=== PATIENT | male | born 1950 | race Caucasian/White ===

== ENCOUNTER → 2025-01-01 12:50 | Outpatient (REF) | payer MEDICARE, SELFPAY ==
--- NOTE | 2025-01-01 12:59 | CA_ITS ---
Transthoracic Echocardiogram Patient (Last, First, Middle): Papo Moreira, Gender: Male Date of : 1950 Age: 74 Procedure Date: 01/01/2025 Procedure Type: Transthoracic Echocardiogram Location: OP Height: 175.26 cm Weight: 74.39 kg BSA: 1.90 m2 Heart Rate: bpm BP: 117 / 60 mmHg Net Developer Contract: 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 The calculated ejection fraction is 57% by biplane method. - Moderate focal hypertrophy of the basal septum. - No obvious valvular pathology seen on this study. Findings Left Ventricle Normal left ventricular cavity size. The left ventricular systolic function is normal. The calculated ejection fraction is 57% by biplane method. There is no evidence of regional wall motion abnormalities. Diastolic function is normal for age. Moderate focal hypertrophy of the basal septum. Right Ventricle Normal right ventricular cavity size and systolic function. Atria Both atria are normal in size. Aortic Valve There is a normal trileaflet aortic valve. There is no aortic valve stenosis. There is no aortic valve regurgitation. Mitral Valve The mitral valve appears normal. There is trace mitral valve regurgitation. There is no mitral valve stenosis. Pulmonic Valve The pulmonic valve is likely normal. Tricuspid Valve Normal tricuspid valve structure. There is trace tricuspid valve regurgitation. There is no evidence of pulmonary hypertension. Great Vessels The asc aorta is normal in size. Venous The inferior vena cava is normal in size and collapses greater than 50% with inspiration. Pericardium/Pleural There is no evidence of pericardial effusion. Prior Study Comparison No prior study available for comparison. Recommendations, Care & Conclusions No obvious valvular pathology seen on this study. Measurements 2D Linear Measurements IVSd: 1.26 0.6-0.9/0.6-1.0 cm LVIDd: 3.74 3.9-5.3/4.2-5.9 cm LVIDd Index: 1.97 2.4-3.2/2.2-3.1 cm/m2 LVIDs: 2.35 2.0-3.6 cm LVPWd: 1.22 0.7-1.1 cm Ao Root: 3.20 2.1-3.5 cm LA Diam: 3.80 2.7-3.8/3.0-4.0 cm LAIDs Index: 2.00 1.5-2.3 cm/m2 LV Mass: 195.86 67-162/88-224 g LV Mass Index: 103.08 43-95/49-115 g/m2 LVOT Diam: 2.30 3.0+(-)1.3 cm 2D Systolic Function EF 4C: 62.40 >55% EF 2C: 46.30 >55% EF BiP: 56.50 >55% Mitral Valve MV Pk E: 0.67 MV PK A: 0.86 MV Decel Time: 335.00 E/A: 0.80 E'Lateral: 12.10 E'Medial: 7.18 E/E' Med: 9.30 E/E' Lat: 5.50 PHT: 98.00 MVA PHT: 2.24 Decel Mathews: 1.99 Aortic Valve AoV Pk Christopher: 1.25 AoV Pk Grad: 6.00 LVOT LVOT Pk Christopher: 0.78 LVOT Mn Christopher: 0.47 LVOT VTI: 0.19 LVOT Pk Grad: 2.00 LVOT Mn Grad: 1.00 LVOT Diam: 2.30 LVOT Area: 4.15 Diastolic Function MV Pk E: 0.67 MV Pk A: 0.86 E/A: 0.80 E'Medial: 7.18 E/E' Med: 9.30 E' Laterial: 12.10 E/E' Lat: 5.50 Right Ventricle TAPSE (mm): 19.00 TVS' Christopher: 15.00 Tricuspid Valve TR Pk Christopher: 2.24 TR Pk Grad: 20.00 RA Press: 3.00 RVSP: 23.00 Great Vessels Aorta Ao Root-2D: 3.20 2.0-3.7 cm Ao Asc: 3.30 2.1-3.4 cm Pulmonary Valve PV Pk Christopher: 0.92 Peak PV Grad: 3.00 Updated in Other Vendor System with Status of Final Jay Jay Barajas MD electronically signed on 01/02/2025 8:40:07 AM with status of Final
--- OUTSIDE RECORDS SUMMARY | 2025-01-01 15:15 | XMS_ITS ---
[facility] Address [address] [place] [address] Care Team Providers Care Remarketing Manager Name Role Phone Oneil Agrawal MD Primary Care Provider Unavaila Darien Lema Unavailable [phone] Allergies Allergen (clinical drug ingredient) Drug/Non Drug Allergy documented on EMR Reaction Allergy Type Onset Date Status Adhesive rash Allergy Active codeine Codeine Stmach cramps Drug Allergy Act dennis REASON FOR VISIT At Risk Footcare Medications Medication SIG (Take, Route, Frequency, Duration) Notes Start Date End Date Status Multivitamin Active Ativan Not-Taking Ammonium Lactate 12 % 1 application Externally Twice a day for 30 days Active Cymbalta Not-Taking Simvastatin 20 MG Orally Once a day Active Lipitor Active Fluticasone Propionate HFA Active HumaLOG Active Astepro Active busPIRone HCl Active Gabapentin 100 MG 1 capsule Orally Onc e a day for 30 day(s) Active Aspirin 81 MG 2 tablets Once a day Active Social History Tobacco Use: Social History Observation Description Date Details (start date - stop date) Never Smoker NA - NA Tobacco Use/Smoking Question Answer Notes Are you a: nonsmoker Additional Findings: Tobacco Non-User Current no n-smoker Alcohol Screen Question Answer Notes Did you have a drink containing alcohol in the p ast year? No Points 0 Interpretation Negative Tobacco use other than smoking: Question Answer Notes Are you an other tobacco user? No Vital Signs Height 5 ft 9 in in 05/19/2024 Weight 154 lbs 05/19/2024 BMI 22.74 kg/m2 05/19/2024 Blood pressure systolic 120 mm Hg 05/19/20 24 Blood pressure diastolic 67 mm Hg 024 Procedures Procedure Date Ordered Date Performed Result Body Sit e 94044-KSGPZXO NAIL, 6 OR MORE 05/19/2024 N/A 20504-LJOL SKIN LESIONS, 2 TO 4 05/19/2024 N/A Encounters Encounter Location Date Provider Diagnosis [facility] [address] [address] 05/19/2024 Darien Guerrier Type 1 diabetes mellitus with diabetic polyneuropathy E10.42 and Tinea unguium B35.1 Assessments Encounter Date Diagnosis (ICD Code) Assessment Notes Treatment Notes Treatment Clinical Notes Section Notes 05/19/2024 Type 1 diabetes mellitus with diabetic polyneuropathy (ICD-10 - E10.42) 05/19/2024 Tinea unguium (ICD-10 - B35.1) Plan Of Treatment Pending Test Test Name Order Date [id number] NAIL, 6 OR MORE 05/19/2024 54049-OSDE SKIN LESIONS, 2 TO 4 05/19/20 24 Next Appt Details Follow Up: prn, Reason: Provider Name:Darien Guerrier , 02/16/2025 12:45:00 PM, [address] [place] [address], [phone], Procedure Notes * Category Sub-Category Detail Notes Debride Nail 6-10 Nail debridement Performance o f this nail treatment by a nonprofessional would put this patients foot and overall health at risk. Therefore, nail debridement was performed extensively to reduce/remove overall nail length, girth, thickness, subungual debris, and necrotic tissue, by manual and/or electrical means through the use of a nail nipper and/or dremel-type card grinder, to a more viable healthy nail plate or bed tissue 6-10. Silver nitrate used for any petechial bleeding as necessary. Definitive antifungal treatment options have been reviewed and discussed with the patient. The patient chooses, no pharmaceutical tx - 76396 Keratoma Treatment Parring or Cutting o f Benign Hyperkeratotic Lesion(s) (-56) 2-4 Lesions - The Benign hyperkeratotic lesions, as described above were pared, and/or cut utilizing a sterile 15 blade, tissue nippers, and/or dremel - 60635 Progress Notes * Papo LANDEROS EDOB:[birth year] (74 yo M)Acc No.[id number]:05/19/2024 Progress Note Patient:Papo Valdez Provider:?Darien Guerrier DPM :1950???Age:74 Y???Sex:Male Tai e:05/19/2024 Address:[address] [place] [address] [place] [id number] Pcp:Oneil Agrawal MD Subjective: * Chief Complaints: * ???At Risk Footcare * HPI: ???At Risk footcare:?Pt States Last PCP Visit:?Date?11/19/2023 * ROS:?General/Constitutional:?Nausea?denies.?Vomiting?denies.?Hunger Thirst?denies.?Loss appetite?denies.?Chills?denies.?Fatigue?denies.?Fever?denies.?Night Sweats?denies.?Unexplained weight loss?denies.?Ophthalmologic:?Blurred vision?denies.?Red eye?denies.?HEENTM:?Dentures?denies.?Dizziness?denies.?Glasses/contacts?admits.?Retinopathy?de nies.?Blurred/double vision?denies.?TMJ?denies.?Discharge/drainage?denies.?Implants?denies.?Hard of hearing denies.?Difficulty chewing/swallowing/speaking?denies.?Nose bleeds?denies.?Sore mouth?denies.?Swollen glands?denies.?Respiratory:?On Oxygen?denies.?Pneumonia/pleurisy?denies.?Bronchitis?denies.?Emphysema?denies.?C oughing?denies.?Cough blood?denies.?Shortness of breath?denies.?Wheezing?denies.?Cardiovascular:?Pacemaker?denies.?MVP?denies.?WPW?denies.?CHF?denies.?Heart attack?denies.?Septal defect?denies.?Rapid beat?denies.?Chest pain ?denies.?Atrial Fib.?denies.?Murmur/Palpitations?denies.?Gastrointestinal:?Hemorrhoids?denies.?Stomach/Abdominal pain?denies.?Dark blood stool?denies.?Irritable bowel ?denies.?Constipation?denies.?Diarrhea?denies.?Vomiting?denies.?Hematology:?Swelling?denies.?Bruising?denies.?Bleeding problem?denies.?Genitourinary:?Blood urine?denies.?Frequent/Painfu/urination/bladder control?denies.?Kidney stones?denies.?Infection (UTI)?denies.?Nephropathy?denies.?Musculoskeletal:?Hammertoes?admits.?Bunions?denies.?Scoliosis/kyphosis?denies.?Muscle cramps / walking?denies.?Generalized aches and pains?denies.?Weakness?denies.?Integ.:?[place]?denies.?Scars?denies.?Corns/calluses?admits.?Ingrown nails?denies.?Painful nails?denies.?Rashes?denies.?Neurologic:?Difficulty sleeping?denies.?Bipolar?denies.?Brain disorder?denies.?Balance trouble?denies.?Confusion?denies.?Fainting/blackouts?denies.?Headache?denies.?Tr emors?denies.? * Medical History:? * Surgical History:?cataract s urgery 1986, 1988right hand surgery 2013 * Hospitalization/Major Diagno stic Procedure:?Denies Past Hospitalization * Family History:?Mother: humberto dobson, diagnosed with Other malignant neoplasm of unspecified site.?Father: , diagnosed with Other specified conditions influencing health status.?Maternal Grand Father: diabetes.?Siblings: unknown, diagnosed with Other specified conditions influencing health status.?Spouse: alive.?Maternal Grand Mother: diagnosed with Unspecified heart disease.? * Social History:?Tobacco Use:?Tobacco Use/Smoking?Are you a:?nonsmoker ?Additional Findings: Tobacco Non-User?Current non-smoker ?Tobacco use other than smoking?Are you an other tobacco user??No ???Drugs/Alcohol:?Drugs?Have you used drugs other than those for medical reasons in the past 12 months??No ?Alcohol Screen?Did you have a drink containing alcohol in the past year??No ?Points?0 ?Interpretation?Negative ???Miscellaneous:?Caffeine: yes, frequency:, 1-cups per day. ?Children: yes. ?no Exercise. ?Marital status: . ?Occupation: Retired-[employer] , [employer]. * Medications:?TakingGabapenti n 100 MG Capsule 1 capsule Orally Once a dayAspirin 81 MG 2 tablets Once a dayAstepro busPIRone HCl Fluticasone Propionate HFA HumaLOG Lipitor Multivitamin Simvastatin 20 MG Tablet Orally Once a dayAmmonium Lactate 12 % Cream 1 application Externally Twice a dayTaking Gabapentin 100 MG Capsule 1 capsule Orally Once a dayTaking Aspirin 81 MG 2 tablets Once a dayTaking Astepro Taking busPIRone HCl Taking Fluticasone Propionate HFA Taking HumaLOG Taking Lipitor Taking Multivitamin Taking Simvastatin 20 MG Tablet Orally Once a dayTaking Ammonium Lactate 12 % Cream 1 application Externally Twice a dayNot-Taking/PRNCymbalta Ativan Medication List reviewed and reconciled with the patientNot-Taking/PRN Cymbalta Not-Taking/PRN Ativan Medication List reviewed and reconciled with the patient * Allergies:?Codeine: Clarice Carroll: cosmo[Allergies Verified] Objective: * Vitals:?Ht: 5 ft 9 in, Wt:15 4, BMI:22.74, Shoe size:9.5, BP:120/67 mm Hg, BS:105. * Examination: ???Neurological: ?SENSORY:?Neurological exam demonstrates, reduced light touch sensation, reduced sharp/dull pin prick discrimination , B/L, 5.07 monofilament test performed at plantar aspects of 5 varied sites per foot shows sensation, reduced, B/L, Pt still relates abnormal sensations in both feet, pt relates, paresthesia, B/L.?Nails: ?NAILS are:?Elongated, overgrown, dystrophic, lytic, greater than 3mm thick, discolored and friable with crumbly malodorous subungual debris, T1, T2, T3, T4, T6, T7, T8, T9.?Dermatologic: ?SKIN FINDINGS:?Skin exam reveals Keratotic lesion(s) located at, Heel, B/L.? Assessment: * Assessment: 1.?Tinea unguium - B35.1?2.? Type 1 diabetes mellitus with diabetic polyneuropathy - E10.42 (Primary)? Plan: * Treatment: * Procedures:?Debride Nail 6-10:?Nail debridement?Performance of this nail treatment by a nonprofessional would put this patients foot and overall health at risk. Therefore, nail debridement was performed extensively to reduce/remove overall nail length, girth, thickness, subungual debris, and necrotic tissue, by manual and/or electrical means through the use of a nail nipper and/or dremel-type card grinder, to a more viable healthy nail plate or bed tissue 6-10. Silver nitrate used for any petechial bleeding as necessary. Definitive antifungal treatment options have been reviewed and discussed with the patient. The patient chooses, no pharmaceutical tx - 49343.?Keratoma Treatment:?Parring or Cutting of Benign Hyperkeratotic Lesion(s)?(-56) 2-4 Lesions - The Benign hyperkeratotic lesions, as described above were pared, and/or cut utilizing a sterile 15 blade, tissue nippers, and/or dremel - 72254.? * Procedure Codes:?61331 DEBRI DE NAIL, 6 OR MORE, Modifiers: XS 81720 TRIM SKIN LESIONS, 2 TO 4, Modifiers: XS * Follow Up:?prn * Images: * Sign off status: Completed true * Provider:?Darien Guerrier DPM Date:?2023 Generated for Dawood peters/[facility]arcel[facility] on:?01/01/2025 03:15 PM EDT History and Physical Notes * HPI (History of Present Illness) Category Sub-Category Detail Notes Category Not es At Risk footcare Pt States Last PCP Visit: Date: 4 Examination Category Sub-Category Detail Notes Category Not es Neurological SENSORY: Neurological exa m demonstrates, reduced light touch sensation, reduced sharp/dull pin prick discrimination , B/L, 5.07 monofilament test performed at plantar aspects of 5 varied sites per foot shows sensation, reduced, B/L, Pt still relates abnormal sensations in both feet, pt relates, paresthesia, B/L Dermatologic SKIN FINDINGS: Skin exam reveal s Keratotic lesion(s) located at, Heel, B/L Nails NAILS are: Elongated, overg rown, dystrophic, lytic, greater than 3mm thick, discolored and friable with crumbly malodorous subungual debris, T1, T2, T3, T4, T6, T7, T8, T9
--- OUTSIDE RECORDS SUMMARY | 2025-01-01 15:16 | XMS_ITS ---
Author Organization [facility] [place] Address [address] [place] [address] Care Team Providers Care Title Clerk Automobile Name Role Phone Oneil Agrawal MD Primary Care Provider Unavaila Darien Lema Unavailable [phone] Allergies Allergen (clinical drug ingredient) Drug/Non Drug Allergy documented on EMR Reaction Allergy Type Onset Date Status Adhesive rash Allergy Active codeine Codeine Stmach cramps Drug Allergy Act dennis REASON FOR VISIT At Risk Footcare, Toe Irritation Medications Medication SIG (Take, Route, Frequency, Duration) Notes Start Date End Date Status Multivitamin Active Simvastatin 20 MG Orally Once a day Active Lipitor Active HumaLOG Active Ammonium Lactate 12 % 1 application Exte rnally Twice a day for 30 days Active Gabapentin 100 MG 1 capsule Orally Onc e a day for 30 day(s) 3 caps Active Aspirin 81 MG 2 tablets Once a day Active Ativan Not-Taking busPIRone HCl Active Colace Active Cymbalta Not-Taking Extra Depth Orthopedic Shoes (1 Pair) with Customized Heat Molded Multidensity Innersoles (3 Pair) as directed Dx: IDDM/Polyneuropathy (E10.42), Hammertoe Foot Deformity (M20.41,M20.42), Preulcerative Skin Lesion(s) (L85.1) 08/18/2024 Active Astepro Not-Taking Fluticasone Propionate HFA Not-Taking Social History Tobacco Use: Social History Observation Description Date Details (start date - stop date) Never Smoker NA - NA Tobacco Use/Smoking Question Answer Notes Are you a: nonsmoker Additional Findings: Tobacco Non-User Current no n-smoker Tobacco use other than smoking: Question Answer Notes Are you an other tobacco user? No Vital Signs Height 5ft9in in 11/24/2024 Weight 165 lbs 11/24/2024 BMI 24.36 kg/m2 11/24/2024 Blood pressure systolic 120 mm Hg 11/25/19 Blood pressure diastolic 62 mm Hg 025 Procedures Procedure Date Ordered Date Performed Result Body Sit e 85690-UZQYTDJ NAIL, 6 OR MORE 11/24/2024 N/A 66975-YNVH SKIN LESIONS, 2 TO 4 11/24/2024 N/A Encounters Encounter Location Date Provider Diagnosis [facility] [address] [address] 11/24/2024 Darien Guerrier Type 1 diabetes mellitus with diabetic polyneuropathy E10.42 ; Tinea unguium B35.1 ; Other hammer toe(s) (acquired), right foot M20.41 and Other hammer toe(s) (acquired), left foot M20.42 Assessments Encounter Date Diagnosis (ICD Code) Assessment Notes Treatment Notes Treatment Clinical Notes Section Notes 11/24/2024 Type 1 diabetes mellitus with diabetic polyneuropathy (ICD-10 - E10.42) 11/24/2024 Tinea unguium (ICD-10 - B35.1) 11/24/2024 Other hammer toe(s) (acquired), right foot (ICD-10 - M20.41) Response to treatment,Impro vement 11/24/2024 Other hammer toe(s) (acquired), left foot (ICD-10 - M20.42) Response to treatment,Impro vement Plan Of Treatment Pending Test Test Name Order Date [id number] NAIL, 6 OR MORE 11/24/2024 48122-UGSO SKIN LESIONS, 2 TO 4 11/25/19 25 Next Appt Details Follow Up: prn, Reason: Provider Name:Darien Guerrier , 02/16/2025 12:45:00 PM, [address] [place] [address], [phone], Procedure Notes * Category Sub-Category Detail Notes Debride Nail 6-10 Nail debridement Due to the cl inical pathology outlined in the exam findings, performance of this nail treatment is medically necessary as its management by an unskilled/untrained nonprofessional would put this patients foot and overall health at risk. Therefore, debridement to affected nail(s), as described in exam ( T1, T2, T3, T4, T6, T7, T8, T9 ), was performed exclusively by the physician of record to reduce/remove overall nail length, girth, thickness, subungual debris, and necrotic tissue, by manual and/or electrical means through the use of a nail nipper and/or dremel-type grinder set up operator internal, to a more viable healthy nail plate or bed tissue 6-10 nails in total. Silver nitrate was used for any petechial bleeding as necessary. Definitive antifungal treatment options, both pharmaceutical and surgical, have been reviewed and discussed with the patient. The patient solely prefers the use of intermittent/as needed professional debridement services for their nail condition and understands the need for additional periodic treatments to maintain effectiveness in symptomatic relief - 52591 Keratoma Treatment Parring or Cutting o f Benign Hyperkeratotic Lesion(s) (-56) 2-4 Lesions - Due to the at risk nature of the patients medical condition as documented in the exam findings, performance of this keratoderma treatment is medically necessary as its management by an unskilled/untrained nonprofessional would put this patients foot and overall health at risk. Therefore, the benign hyperkeratotic lesions, ( 2) in total, locations as stated and described in the exam ( Plantar, Heel, B/L ), were pared, and/or cut utilizing a sterile 15 blade, tissue nippers, and/or power dremel instrumentation by the physician of record - 79783 Progress Notes * Papo LANDEROS EDOB:[birth year] (74 yo M)Acc No.[id number]:11/24/2024 Progress Note Patient:?Papo LANDEROS Provider:?Darien Guerrier DPM :1950???Age:74 Y???Sex:Male Tai e:11/24/2024 Address:[address] [place], [place] [id number] Pcp:Oneil Agrawal MD Subjective: * Chief Complaints: * ???At Risk FootcareToe Irrit ation * HPI: ???At Risk footcare:?Pt States Last PCP Visit:?Date?06/20/2024 ???Toe pain:?Treatments:?Rx shoes .? * ROS:?General/Constitutional:?Nausea?denies.?Vomiting?denies.?Hunger Thirst?denies.?Loss appetite?denies.?Chills?denies.?Fatigue?denies.?Fever?denies.?Night Sweats?denies.?Unexplained weight loss?denies.?Ophthalmologic:?Blurred vision?denies.?Red eye?denies.?HEENTM:?Dentures?denies.?Dizziness?denies.?Glasses/contacts?admits.?Retinopathy?den ies.?Blurred/double vision?denies.?TMJ?denies.?Discharge/drainage?denies.?Implants?denies.?Hard of hearing denies.?Difficulty chewing/swallowing/speaking?denies.?Nose bleeds?denies.?Sore mouth?denies.?Swollen glands?denies.?Respiratory:?On O xygen?denies.?Pneumonia/pleurisy?denies.?Bronchitis?denies.?Emphysema?denies.?Co ughing?denies.?Cough blood?denies.?Shortness of breath?denies.?Wheezing?denies.?Cardiovascular:?Pacemaker?denies.?MVP?denies.?WPW?denies.?CHF?denies.?Heart attack?denies.?Septal defect?denies.?Rapid beat?denies.?Chest pain ?denies.?Atrial Fib.?denies.?Murmur/Palpitations?denies.?Gastrointestinal:?Hemorrhoids?denies.?Stomach/Abdominal pain?denies.?Dark blood stool?denies.?Irritable bowel ?denies.?Constipation?denies.?Diarrhea?denies.?Vomiting?denies.?Hematology:?Swelling?denies.?Bruising?denies.?Bleeding problem?denies.?Genitourinary:?Blood urine?denies.?Frequent/Painfu/urination/bladder control?denies.?Kidney stones?denies.?Infection (UTI)?denies.?Nephropathy?denies.?Musculoskeletal:?Hammertoes?admits.?Bunions?denies.?Scoliosis/kyphosis?denies.?Muscle cramps / walking?denies.?Generalized aches and pains?denies.?Weakness?denies.?Integ.:?[place]?denies.?Scars?denies.?Corns/calluses?admits.?Ingrown nails?admits.?Painful nails?denies.?Rashes?denies.?Neurologic:?Difficulty sleeping?denies.?Bipolar?denies.?Brain disorder?denies.?Balance t rouble?denies.?Confusion?denies.?Fainting/blackouts?denies.?Headache?denies.?Jameson mors?denies.? * Medical History:? * Surgical History:?cataract s urgery 1986, 1987right hand surgery 2013 * Hospitalization/Major Diagno stic [...] than smoking?Are you an other tobacco user??No ???Miscellaneous:?Caffeine: yes, frequency:, 1-cups per day. ?Children: yes. ?Exercise: no. ?Marital status: . 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 * Medications:?TakingColace Ga bapentin 100 MG Capsule 1 capsule Orally Once a day , Notes to Pharmacist: 3 capsAspirin 81 MG 2 tablets Once a day busPIRone HCl HumaLOG Lipitor Multivitamin Simvastatin 20 MG Tablet Orally Once a day Ammonium Lactate 12 % Cream 1 application Externally Twice a day Extra Depth Orthopedic Shoes (1 Pair) with Customized Heat Molded Multidensity Innersoles (3 Pair) as directed Dx: IDDM/Polyneuropathy (E10.42), Hammertoe Foot Deformity (M20.41,M20.42), Preulcerative Skin Lesion(s) (L85.1) Taking Colace Taking Gabapentin 100 MG Capsule 1 capsule Orally Once a day , Notes to Pharmacist: 3 capsTaking Aspirin 81 MG 2 tablets Once a day Taking busPIRone HCl Taking HumaLOG Taking Lipitor Taking Multivitamin Taking Simvastatin 20 MG Tablet Orally Once a day Taking Ammonium Lactate 12 % Cream 1 application Externally Twice a day Taking Extra Depth Orthopedic Shoes (1 Pair) with Customized Heat Molded Multidensity Innersoles (3 Pair) as directed Dx: IDDM/Polyneuropathy (E10.42), Hammertoe Foot Deformity (M20.41,M20.42), Preulcerative Skin Lesion(s) (L85.1) Not-Taking/PRNAstepro Fluticasone Propionate HFA Cymbalta Ativan Medication List reviewed and reconciled with the patientNot-Taking/PRN Astepro Not-Taking/PRN Fluticasone Propionate HFA Not-Taking/PRN Cymbalta Not-Taking/PRN Ativan Medication List reviewed and reconciled with the patient * Allergies:?Codeine: Clarice Carroll: cosmo[Allergies Verified] Objective: * Vitals:?Ht: 5ft9in, Wt:165, BMI:24.36, Shoe size: 9.5, BP:120/62mm Hg, BS: 114, Ht-cm: 175.26 cm, Wt-k.84 kg. * ???Past Orders: ???Lab:HEMOGLOBIN A1C (GLYCO HEMOGLOBIN) (Order Date - 08/28/2024) (Collection Date & Time - 08/28/2024 08:56 AM) ? Value Reference Range ?HEMOGLOBIN A1C % (HH) 6.8 * Examination: ???Ophthalmology Referral: ?DIABETES EYE EXAM?Procedure Performed:?Yes ?Date of Exam Performed?09/20/2024 ?Diabetic Retinopathy Screening:?Yes ?Retinal Screening Performed:?Yes ?Findings of Diabetic Eye Exam:?no retinopathy?Neurological: ?SENSORY:?Neurological exam demonstrates, reduced light touch sensation, [...] T1, T2, T3, T4, T6, T7, T8, T9, Absent nail plate, TA, T5.?Dermatologic: ?SKIN FINDINGS:?Skin exam reveals Keratotic lesion(s) located at, Plantar, Heel, B/L.?Orthopedic: ?DIGITAL DEFORMITIES:?Digital contracture, PIPJ, 2-5 B/L, incompl-reducible to push-up test, no over, nor underlapping, there is no longer, evidence of shoe producing skin irritation.?FOOTWEAR:?good condition, exhibit proper fit and accommodation for pedal deformities. OT were inspected and noted to be worn, but in good condition giving proper support at the present time.?General Examination: ?GENERAL APPEARANCE:?Reveals a pleasant, alert, well nourished, well- developed, well hydrated individual, who demonstrates proper attention to hygiene/body habitus, and is in no acute distress, Pt serves as own historian for office visit today.?ORIENTED:?person, place, and time.?FOOT EXAM:?Lower Extremity Neurological Exam performed:?Yes ?Visual exam of foot performed:?Yes ?Date?11/24/2024 ?Footwear Evaluation?Footwear Evaluation performed:?Yes??? Assessment: * Assessment: 1.?Type 1 diabetes mellitus with diabetic polyneuropathy - E10.42 (Primary)???2.?Tinea unguium - B35.1???3.?Other hammer toe(s) (acquired), right foot - M20.41???Specify :Chronic problem, Stable (1=3,2=4)???Notes :Response to treatment,Improvement???4.?Other hammer toe(s) (acquired), left foot - M20.42???Specify :Chronic problem, Stable (1=3,2=4)???Notes :Response to treatment,Improvement??? Plan: * Treatment: * Procedures:?Debride Nail 6-10:?Nail debridement?Due to the clinical pathology outlined in the exam findings, performance of this nail treatment is medically necessary as its management by an unskilled/untrained nonprofessional would put this patients foot and overall health at risk. Therefore, debridement to affected nail(s), as described in exam (?T1,?T2,?T3,?T4,?T6,?T7,?T8,?T9?), was performed exclusively by the physician of record to reduce/remove overall nail length, girth, thickness, subungual debris, and necrotic tissue, by manual and/or electrical means through the use of a nail nipper and/or dremel-type grinder set up operator internal, to a more viable healthy nail plate or bed tissue 6- 10 nails in total. Silver nitrate was used for any petechial bleeding as necessary. Definitive antifungal treatment options, both pharmaceutical and surgical, have been reviewed and discussed with the patient. The patient solely prefers the use of intermittent/as needed professional debridement services for their nail condition and understands the need for additional periodic treatments to maintain effectiveness in symptomatic relief - 96679.?Keratoma Treatment:?Parring or Cutting of Benign Hyperkeratotic Lesion(s)?(-56) 2-4 Lesions - Due to the at risk nature of the patients medical condition as documented in the exam findings, performance of this keratoderma treatment is medically necessary as its management by an unskilled/untrained nonprofessional would put this patients foot and overall health at risk. Therefore, the benign hyperkeratotic lesions, ( 2) in total, locations as stated and described in the exam (?Plantar,?Heel,?B/L?), were pared, and/or cut utilizing a sterile 15 blade, tissue nippers, and/or power dremel instrumentation by the physician of record - 04225.? * Procedure Codes:?21510 DEBRI DE NAIL, 6 OR MORE, Modifiers: XS 90542 TRIM SKIN LESIONS, 2 TO 4, Modifiers: XS * Preventive Medicine:? ??Counseling:?Discussion:?-13: Office or other outpatient visit for the evaluation and management of an established patient, which required a medically appropriate history and/or examination and LOW level of DECISION MAKING for: 1 STABLE ACUTE UNCOMPLICATED PROBLEM, 2 OR MORE MINOR PROBLEMS, OR 1 STABLE CHRONIC PROBLEM, THAT POSE(S) A LOW RISK FOR MORBIDITY/MORTALITY. The visit on the day of the encounter encompassed interpreting the data and educating the patient as to the nature of their condition, treatment options available according to their individual PMH, meds, allergies, and overall health/living conditions, as well as any potential risks or complications that may occur from a failure to adhere to, and participate in, the recommended course of therapy. The discussion included a complete verbal, and/or written explanation of the examination results, any x-rays taken, the proposed diagnosis, and outline of the treatment plan. A schedule for future care needs was also explained. The patient verbalized an understanding of the instructions at this time and agreed to be an active participant in their treatment. If the patient should think of any questions or concerns after the visit, I have encouraged the patient to call the office.?Shoe Gear Counseling:?A thorough inspection of the patients Rxed shoegear and inserts was performed and findings communicated. We reviewed the many important medical advantages for adhering to regularly wearing these shoe and insert accomidative devices daily as well as reviewed the fact that a failure in accepting these recommedations may be deleterious, unable to prevent, and disadvantagely result in, many pedal complications such as skin irritation, skin ulceration, infection, and even loss of toe/foot/leg/or even their life. Time was also spent reviewing the proper footcare techniques including daily skin moisturization, daily foot inspection for any interruption in skin integrity, open lesions, or sign of infection such as redness/malodor/drainage/swelling as well as daily shoe inspection for the presence of internal foreign bodies and shoe as well as insert wear. Patient questions re: shoes, inserts, and self foot inspections were answered to their satisfaction as the patient verbally confirmed a full understanding of the above information.? ??Screening/Special Tests:?Fall Risk?Screening:?No falls in the past year ?FALLS: Screening for Future Fall Risk?Have you had any falls with injury in the past year??No * Follow Up:?prn * Images: * Sign off status: Completed true * Provider:?Darien Guerrier DPM Date:?2024 Generated for Dawood peters/[facility]arcel[facility] on:?01/01/2025 03:15 PM EDT History and Physical Notes * HPI (History of Present Illness) Category Sub-Category Detail Notes Category Not es Toe pain Treatments: Rx shoes At Risk footcare Pt States Last PCP [...] exam reveal s Keratotic lesion(s) located at, Plantar, Heel, B/L Orthopedic FOOTWEAR EVALUATION: good condit ion, exhibit proper fit and accommodation for pedal deformities. OT were inspected and noted to be worn, but in good condition giving proper support at the present time DIGITAL DEFORMITIES: Digital contracture , PIPJ, 2-5 B/L, incompl-reducible to push-up test, no over, nor underlapping, there is no longer, evidence of shoe producing skin irritation General Examination GENERAL APPEARANCE: Reveals a pleasant, alert, well nourished, well-developed, well hydrated individual, who demonstrates proper attention to hygiene/body habitus, and is in no acute distress, Pt serves as own historian for office visit today FOOT EXAM: Lower Extremity Neurological Exa m performed:: Yes Visual exam of foot performed:: Yes Date: 11/24/2024 ORIENTED: person, place, and t jorge Footwear Evaluation Footwear Evaluation performe d:: Yes Ophthalmology Referral DIABETES EYE EXAM Procedure Perform ed:: Yes ?Date of Exam Performed: 09/20/2024 Diabetic Retinopathy Screening:: Yes Retinal Screening Performed:: Yes Findings of Diabetic Eye Exam:: no retin opathy Nails NAILS are: Elongated, overg rown, dystrophic, lytic, greater than 3mm thick, discolored and friable with crumbly malodorous subungual debris, T1, T2, T3, T4, T6, T7, T8, T9, Absent nail plate, TA, T5
--- OUTSIDE RECORDS SUMMARY | 2025-01-01 15:16 | XMS_ITS ---
Author Organization [facility] [place] Address [address] [place] [address] Care Team Providers Care Premium Cancellation Clerk Name Role Phone Oneil Agrawal MD Primary Care Provider Unavaila Darien Lema Unavailable [phone] Allergies Allergen (clinical drug ingredient) Drug/Non Drug Allergy documented on EMR Reaction Allergy Type Onset Date Status Adhesive rash Allergy Active codeine Codeine Stmach cramps Drug Allergy Act dennis REASON FOR VISIT At Risk Footcare, Toe Irritation Medications Medication SIG (Take, Route, Frequency, Duration) Notes Start Date End Date Status Lipitor Active HumaLOG Active Gabapentin 100 MG 1 capsule Orally Onc e a day for 30 day(s) 3 caps Active busPIRone HCl Active Aspirin 81 MG 2 tablets Once a day Active Fluticasone Propionate HFA Not-Taking Ativan Not-Taking Colace Active Cymbalta Not-Taking Extra Depth Orthopedic Shoes (1 Pair) with Customized Heat Molded Multidensity Innersoles (3 Pair) as directed Dx: IDDM/Polyneuropathy (E10.42), Hammertoe Foot Deformity (M20.41,M20.42), Preulcerative Skin Lesion(s) (L85.1) 08/18/2024 Active Multivitamin Active Ammonium Lactate 12 % 1 application Exte rnally Twice a day for 30 days Active Simvastatin 20 MG Orally Once a day Active Astepro Not-Taking Social History Tobacco Use: Social History [...] Signs Height 5 ft 9 in in 08/18/2024 Weight 160 lbs 08/18/2024 BMI 23.63 kg/m2 08/18/2024 Blood pressure systolic 120 mm Hg 08/18/20 24 Blood pressure diastolic 60 mm Hg 024 Procedures Procedure Date Ordered Date Performed Result Body Sit e 61496-NMAJNNC NAIL, 6 OR MORE 08/18/2024 N/A 70857-GOOP SKIN LESIONS, 2 TO 4 08/18/2024 N/A Encounters Encounter Location Date Provider Diagnosis [facility] [address] [place] [address] 08/18/2024 Darien Guerrier Type 1 diabetes mellitus with diabetic polyneuropathy E10.42 ; Tinea unguium B35.1 ; Other hammer toe(s) (acquired), right foot M20.41 and Other hammer toe(s) (acquired), left foot M20.42 Assessments Encounter Date Diagnosis (ICD Code) Assessment Notes Treatment Notes Treatment Clinical Notes Section Notes 08/18/2024 Type 1 diabetes mellitus with diabetic polyneuropathy (ICD-10 - E10.42) 08/18/2024 Tinea unguium (ICD-10 - B35.1) 08/18/2024 Other hammer toe(s) (acquired), right foot (ICD-10 - M20.41) Patient Educated with: DIABETIC FOOT CARE INSTRUCTIONS. pdf (DIABETIC FOOT CARE INSTRUCTIONS. pdf) 08/18/2024 Other hammer toe(s) (acquired), left foot (ICD-10 - M20.42) Plan Of Treatment Medication Medication Name Sig Start Date Stop Date Notes Extra Depth Orthopedic Shoes (1 Pair) with Customized Heat Molded Multidensity Innersoles (3 Pair) as directed Dx: IDDM/Polyneuropathy (E10.42), Hammertoe Foot Deformity (M20.41,M20.42), Preulcerative Skin Lesion(s) (L85.1) 08/18/2024 Treatment Notes Assessment Notes Other hammer toe(s) (acquired), right fo ot Patient Educated with: DIABETIC FOOT CARE INSTRUCTIONS.pdf (DIABETIC FOOT CARE INSTRUCTIONS.pdf) Pending Test Test Name Order Date 49152-ZNLUITK NAIL, 6 OR MORE 08/18/2024 16047-EGPB SKIN LESIONS, 2 TO 4 08/18/20 24 Next Appt Details Follow Up: prn, Reason: Provider Name:Darien Guerrier , 02/16/2025 12:45:00 PM, [address] [place] [address], [phone], Procedure Notes * Category Sub-Category Detail Notes [...] T1, T2, T3, T4, T6, T7, T8, T9), was performed exclusively by the physician of record to reduce/remove overall nail length, girth, thickness, subungual debris, and necrotic tissue, by manual and/or electrical means through the use of a nail nipper and/or dremel-type gold nib grinder, to a more viable healthy nail [...] to maintain effectiveness in symptomatic relief - 84042 Keratoma Treatment Parring or Cutting o f [...] described in the exam ( Plantar, Heel, B/L), were pared, and/or cut utilizing a sterile 15 blade, tissue nippers, and/or power dremel instrumentation by the physician of record - 09334 Progress Notes * Papo LANDEROS EDOB:[birth year] (74 yo M)Acc No.[id number]:08/18/2024 Progress Note Patient:Papo EAST Provider:?Darien Guerrier DPM :1950???Age:74 Y???Sex:Male Tai e:08/18/2024 Address:[address] [place] [address] [id number] Pcp:Oneil Agrawal MD Subjective: * Chief Complaints: * ???At Risk FootcareToe Irrit ation * HPI: ???At Risk footcare:?Pt States Last PCP Visit:?Date?06/20/2024 ???Toe pain:?Location:?B/L feet.?Duration:?several years.?Course:?worse.?Aggravated by:?shoes, any pressure.?Treatments:?change in shoes.? * ROS:?General/Constitutional:?Nausea?denies.?Vomiting?denies.?Hunger Thirst?denies.?Loss appetite?denies.?Chills?denies.?Fatigue?denies.?Fever?denies.?Night Sweats?denies.?Unexplained weight loss?denies.?Ophthalmologic:?Blurred [...] no. ?Marital status: . ?Occupation: Retired-[employer] , [employer]. * Medications:?TakingColace Ga bapentin 100 MG Capsule 1 capsule Orally Once a day , Notes to Pharmacist: 3 capsAspirin 81 MG 2 tablets Once a day busPIRone HCl HumaLOG Lipitor Multivitamin Simvastatin 20 MG Tablet Orally Once a day Ammonium Lactate 12 % Cream 1 application Externally Twice a day Taking Colace Taking Gabapentin 100 MG Capsule 1 capsule Orally Once a day , Notes to Pharmacist: 3 capsTaking Aspirin 81 MG 2 tablets Once a day Taking busPIRone HCl Taking HumaLOG Taking Lipitor Taking Multivitamin Taking Simvastatin 20 MG Tablet Orally Once a day Taking Ammonium Lactate 12 % Cream 1 application Externally Twice a day Not-Taking/PRNAstepro Fluticasone Propionate HFA Cymbalta Ativan Medication List reviewed and reconciled with the patientNot-Taking/PRN Astepro Not-Taking/PRN Fluticasone Propionate HFA Not-Taking/PRN Cymbalta Not-Taking/PRN Ativan Medication List reviewed and reconciled with the patient * Allergies:?Codeine: Clarice Pepeve: cosmo[Allergies Verified] Objective: * Vitals:?Ht:5 ft 9 in, Wt:160 , BMI:23.63, Shoe size:9.5, BP:120/60mm Hg, BS:115, Ht-cm: 175.26 cm, Wt-k.57 kg. * ???Past Orders: ???Lab:HEMOGLOBIN A1C (GLYCO HEMOGLOBIN) (Order Date - 08/18/2024) (Collection Date & Time - 07/07/2024 08:40 AM) ? Value Reference Range ?TOTAL HEMOGLOBIN (HGBA1C) 6.6 * Examination: ???Neurological: ?SENSORY:?Neurological exam demonstrates, reduced [...] Keratotic lesion(s) located at, Plantar, Heel, B/L.?Orthopedic: ?MUSCLE STRENGTH:?5/5 all groups in a symmetrical fashion , B/L.?FOOT MORPHOLOGY:? Pes Cavus structure, No Charcot collapse/destruction noted at MTJ.?DIGITAL DEFORMITIES:?Digital contracture, PIPJ, 2-5 B/L, incompl-reducible to push-up test, no over, nor underlapping,?there is?evidence of shoe producing skin irritation.?FOOTWEAR:?worn, OT were inspected and noted to be severely worn , in poor condition not giving proper support at the present time.?Vascular: ?DP PULSES(B):?3/4, B/L.?PT PULSES(B):?3/4, B/L.?CAPILLARY FILL TIME:?immediate, all digits, B/L.?TROPHIC CONDITION-TEXTURE/ELASTICITY/TURGOR/HAIR GROWTH(B):?normal, B/L.?TEMPERTURE GRADIENT(C):?warm to cool, proximal to distal, B/L.?PIGMENTATION:?normal, B/L.?EDEMA(C):?absent, B/L.?Ophthalmology Referral: ?DIABETES EYE EXAM?Procedure Performed:?Yes ?Date of Exam Performed?06/21/2024 ?Diabetic Retinopathy Screening:?Yes ?Retinal Screening Performed:?Yes ?Findings of Diabetic Eye Exam:?no retinopathy?General Examination: ?GENERAL APPEARANCE:?Reveals a pleasant, alert, well nourished, well- developed, well hydrated individual, who demonstrates proper attention to hygiene/body habitus, and is in no acute distress, Pt serves as own historian for office visit today.?ORIENTED:?person, place, and time.?FOOT EXAM:?Lower Extremity Neurological Exam performed:?Yes ?Date?08/18/2024 ?Footwear Evaluation?Footwear Evaluation performed:?Yes??? Assessment: * Assessment: 1.?Tinea unguium - B35.1???2 .?Type 1 diabetes mellitus with diabetic polyneuropathy - E10.42 (Primary)???3.?Other hammer toe(s) (acquired), right foot - M20.41???Specify :Chronic problem, Worse (4),Rx Management (4)???4.?Other hammer toe(s) (acquired), left foot - M20.42???Specify :Chronic problem, Worse (4),Rx Management (4)??? Plan: * Treatment: 2.?Other hammer toe(s) (acqu ired), right foot? Start Extra Depth Orthopedic Shoes (1 Pair) with Customized Heat Molded Multidensity Innersoles (3 Pair), as directed, Dx: IDDM/Polyneuropathy (E10.42), Hammertoe Foot Deformity (M20.41,M20.42), Preulcerative Skin Lesion(s) (L85.1), 1, Refills 0.?? Notes: Patient Educated with: DIABETIC FOOT CARE INSTRUCTIONS.pdf (DIABETIC FOOT CARE INSTRUCTIONS.pdf)?? * Procedures:?Debride Nail 6-10:?Nail debridement?Due to the clinical pathology outlined in the exam findings, performance of this nail treatment is medically necessary as its management by an unskilled/untrained nonprofessional would put this patients foot and overall health at risk. Therefore, debridement to affected nail(s), as described in exam (?T1,?T2,?T3,?T4,?T6,?T7,?T8,?T9), was performed exclusively by the physician of record to reduce/remove overall nail length, girth, thickness, subungual debris, and necrotic tissue, by manual and/or electrical means through the use of a nail nipper and/or dremel-type gold nib grinder, to a more viable healthy nail [...] to maintain effectiveness in symptomatic relief - 63637.?Keratoma Treatment:?Parring or Cutting of Benign Hyperkeratotic Lesion(s)?(-56) [...] as stated and described in the exam (?Plantar,?Heel,?B/L), were pared, and/or cut utilizing a sterile 15 blade, tissue nippers, and/or power dremel instrumentation by the physician of record - 09335.? * Procedure Codes:?57330 DEBRI DE NAIL, 6 OR MORE, Modifiers: XS 61684 TRIM SKIN LESIONS, 2 TO 4, Modifiers: XS * Preventive Medicine:? ??Counseling:?Discussion:?-14: Office or other outpatient visit for the evaluation and management of an established patient, which required a medically appropriate history and/or examination and MODERATE level of DECISION MAKING for: 1 OR MORE CHRONIC PROBLEM(S) THATS WORSENING, 2 STABLE CHRONIC PROBLEMS, A NEWLY DIAGNOSED PROBLEM WITH UNCERTAIN PROGNOSIS, AN ACUTE COMPLICATED INJURY WITH MULTIPLE TREATMENT OPTIONS, OR AN ACUTE PROBLEM WITH ACCOMPANYING SYSTEMIC SYMPTOMS, THAT POSE(S) A MODERATE RISK OF MORBIDITY. THIS CONDITION MAY ALSO INCLUDE RX DRUG MANAGEMENT, OR A DECISON FOR MINOR SURGERY. The visit on the day of the [...] have encouraged the patient to call the office.?Digital Surgery:?Digital surgery was discussed with the patient, We elected to try conservative treatment at the present time, due to the patients medical history and increased asssociated post-operative risks.?Digital Treatment:?HT- I explained to the patient the possible etiologies of Hammertoes, including genetics/foot type/shoegear/activity level/exercise routine and the risks/benefits of all the different treatment options for their pain including: No treatment at all, Rest, Ice, New/supportive/wider/deeper Shoegear, Digital Padding/Strapping/Taping/Bracing/Gel protective sleeves, Foot/Ankle AFO Bracing, Stretching exercises, Deep Tissue Massage, Arch support/shoe inserts with splay metatarsal padding, and Custom orthoses. I insisted that any digital devices be removed daily and not worn overnight for safety. The patient is to carefully examine the toes daily for any skin irritation while using any splinting or padding device. The advantages and disadvantages of each option were discussed and the patients questions re: shoegear, padding, custom vs prefabricated inserts, activity level, and consistency in home treatment regimens for optimal success were answered to their verbally confirmed satisfaction.?Shoe Gear Counseling:?SHOE Rx - The patient was counseled in great detail on their muscoloskeletal foot and toe deformities which coincided with the dermatological presentations visualized on exam. We discussed how their deformities put the integrity of their feet at risk for potential pedal complications which makes the accomidative diabetic shoes and cutomizable inserts medically necessary. We discussed the different shoe and insert treatment types and options, as well as the important advantages for adhering to regularly wearing these accomidative devices daily. The patient was made aware of the fact that a failure to abide by these recommedations may be deleterious to their foot health as they are able to prevent many pedal complications such as skin irritation, skin ulceration, infection, and even loss of toe/foot/leg/or life. Time was also spent with the patient dispensing and discussing proper diabetic footcare techniques including daily skin moisturization, daily foot inspection for any interruption in skin integrity including open lesions, or sign of infection such as redness/malodor/drainage/swelling. Also discussed and recommended were procedures regarding daily shoe inspection for the presence of internal foreign bodies as well as any visualized irregular shoe or insert wear. Patient questions re: shoes, inserts, and self foot inspections were answered to their satisfaction as the patient verbally confirmed a full understanding of the above information. A Rx for Extra Depth Orthopedic Shoes with 3 pair of custom heat-molded inserts was dispensed.? ??Screening/Special Tests:?Fall Risk?Screening:?No falls in the past year ?FALLS: Screening for Future Fall Risk?Have you had any falls with injury in the past year??No * Follow Up:?prn * Images: * Sign off status: Completed true * Provider:?Darien Guerrier DPM Date:?2023 Generated for Dawood peters/Marcelina/Hugoitting on:?01/01/2025 03:16 PM EDT History and Physical Notes * HPI (History of Present Illness) Category Sub-Category Detail Notes Category Not es Toe pain Location: B/L feet Duration: several years Course: worse Aggravated by: shoes, any pressure Treatments: change in shoes At Risk footcare Pt States Last PCP Visit: Date: Examination Category Sub-Category Detail Notes Category Not [...] lesion(s) located at, Plantar, Heel, B/L Orthopedic FOOT MORPHOLOGY: Pes Cavus struc ture, No Charcot collapse/destruction noted at MTJ FOOTWEAR EVALUATION: worn, OT were inspe cted and noted to be severely worn , in poor condition not giving proper support at the present time DIGITAL DEFORMITIES: Digital contracture , PIPJ, 2-5 B/L, incompl-reducible to push-up test, no over, nor underlapping, there is evidence of shoe producing skin irritation MUSCLE STRENGTH: 5/5 all groups in a symmetrical fashion , B/L General Examination GENERAL APPEARANCE: Reveals a pleasant, alert, well nourished, well-developed, well hydrated individual, who demonstrates proper attention to hygiene/body habitus, and is in no acute distress, Pt serves as own historian for office visit today FOOT EXAM: Lower Extremity Neurological Exa m performed:: Yes Date: 08/18/2024 ORIENTED: person, place, and t jorge Footwear Evaluation Footwear Evaluation performe d:: Yes Ophthalmology Referral DIABETES EYE EXAM Procedure Perform ed:: Yes ?Date of Exam Performed: 06/21/2024 Diabetic Retinopathy Screening:: Yes Retinal Screening Performed:: Yes Findings of Diabetic Eye Exam:: no retin opathy Vascular DP PULSES (B): 3/4, B/L PT PULSES (B): 3/4, B/L CAPILLARY FILL TIME: immediate, all digi ts, B/L TEMPERTURE GRADIENT (C): warm to cool, p roximal to distal, B/L TROPHIC CONDITION-TEXTURE/ELASTICITY/TURGOR/HAIR GROWTH (B): normal, B/L EDEMA (C): absent, B/L PIGMENTATION: normal, B/L Nails NAILS are: Elongated, overg rown, dystrophic, lytic, greater than 3mm thick, discolored and friable with crumbly malodorous subungual debris, T1, T2, T3, T4, T6, T7, T8, T9, Absent nail plate, TA, T5
--- OUTSIDE RECORDS SUMMARY | 2025-01-01 15:16 | XMS_ITS | Patient Health Record ---
Author Organization [facility] Address [address] [place] [address] Care Team Providers Care Grizzly Worker Name Role Phone Oneil Agrawal MD Primary Care Provider Unavaila Darien Lema Unavailable [phone] Allergies Allergen (clinical drug ingredient) Drug/Non Drug Allergy documented on EMR Reaction Allergy Type Onset Date Status Adhesive rash Allergy Active codeine Codeine Stmach cramps Drug Allergy Act dennis Results Component Value Reference Range Notes HEMOGLOBIN A1C (GLYCOHEMOGLO BIN) Reviewed date:09/19/2024 12:53:06 PM Interpretation: Performing Lab: Notes/Report: HEMOGLOBIN A1C % (HH) 6.3 HEMOGLOBIN A1C (GLYCOHEMOGLO BIN) Reviewed date:08/18/2024 08:41:26 AM Interpretation: Performing Lab: Notes/Report: TOTAL HEMOGLOBIN (HGBA1C) 6.6 HEMOGLOBIN A1C (GLYCOHEMOGLO BIN) Reviewed date:11/24/2024 08:57:14 AM Interpretation: Performing Lab: Notes/Report: HEMOGLOBIN A1C % (HH) 6.8 Reason For Referral No Information Medications Medication SIG (Take, Route, Frequency, Duration) Notes Start Date End Date Status Multivitamin Active Simvastatin 20 MG Orally Once a day Active Lipitor Active Gabapentin 100 MG 1 capsule Orally Onc e a day for 30 day(s) 3 caps Active Cymbalta Not-Taking Aspirin 81 MG 2 tablets Once a day Active Ativan Not-Taking busPIRone HCl Active HumaLOG Active Ammonium Lactate 12 % 1 application Exte rnally Twice a day for 30 days Active Extra Depth Orthopedic Shoes (1 Pair) with Customized Heat Molded Multidensity Innersoles (3 Pair) as directed Dx: IDDM/Polyneuropathy (E10.42), Hammertoe Foot Deformity (M20.41,M20.42), Preulcerative Skin Lesion(s) (L85.1) 08/18/2024 Active Astepro Not-Taking Colace Active Fluticasone Propionate HFA Not-Taking Immunizations Vaccine Route Administration Date Status Comme nts COVID-19 Pfizer BioNTech Vaccine Unknown 06/21/2022 Administered 10/01/2020,10/22/202020,2021 Influenza Unknown 05/26/2016 Administered Influenza Unknown 06/22/2017 Administered Influenza Unknown 06/15/2018 Administered Influenza Unknown 06/06/2022 Administered Pneumococcal Unknown 06/14/2013 Administered Social History Tobacco Use: Social History Observation [...] Are you an other tobacco user? No Problems Problem Type SNOMED Code ICD Code Onset Dates Problem Status W/U Status Risk Notes Problem Acquired hammer toe of right foot (9019836529385775 ) Other hammer toe(s) (acquired), right foot (M20.41) Active confirmed Response to treatment, Improvemen t Problem Acquired hammer toe of left foot (5039218868871715 ) Other hammer toe(s) (acquired), left foot (M20.42) Active confirmed Response to treatment, Improvemen t Problem Polyneuropathy due to diabetes mellitus type I (003750417) Type 1 diabetes mellitus with diabetic polyneuropathy (E10.42) Active confirmed Vital Signs Blood pressure diastolic 62 mm Hg 11/24/2024 Height 5ft9in in 11/24/2024 Blood pressure systolic 120 mm Hg 11/24/2024 Weight 165 lbs 11/24/2024 BMI 24.36 kg/m2 11/24/2024 Procedures Procedure Date Ordered Date Performed Result Body Sit e 95616-JKKAOMB NAIL, 6 OR MORE 02/18/2024 N/A 52152-IUQR SKIN LESIONS, 2 TO 4 02/18/2024 N/A 88421-DRUOXEQ NAIL, 6 OR MORE 05/19/2024 N/A 35923-BUXG SKIN LESIONS, 2 TO 4 05/19/2024 N/A 16347-YHWMRBC NAIL, 6 OR MORE 08/18/2024 N/A 42890-EPFD SKIN LESIONS, 2 TO 4 08/18/2024 N/A 40997-POCGOGH NAIL, 6 OR MORE 11/24/2024 N/A 69767-HWGK SKIN LESIONS, 2 TO 4 11/24/2024 N/A Encounters Encounter Location Date Provider Diagnosis [address] [address] 02/18/2024 Darien Chey Type 1 diabetes mellitus with diabetic polyneuropathy E10.42 ; Tinea unguium B35.1 and Xerosis of skin L85.[address] [address] 05/19/2024 Darien Chey Type 1 diabetes mellitus with diabetic polyneuropathy E10.42 and Tinea unguium B35.[address] [address] 08/18/2024 Darien Chey Type 1 diabetes mellitus with diabetic polyneuropathy E10.42 ; Tinea unguium B35.1 ; Other hammer toe(s) (acquired), right foot M20.41 and Other hammer toe(s) (acquired), left foot M20.[address] [address] 11/24/2024 Darienevie MárquezChey Type 1 diabetes mellitus with diabetic polyneuropathy E10.42 ; Tinea unguium B35.1 ; Other hammer toe(s) (acquired), right foot M20.41 and Other hammer toe(s) (acquired), left foot M20.42 Assessments Encounter Date Diagnosis (ICD Code) Assessment Notes Treatment Notes Treatment Clinical Notes Section Notes 02/18/2024 Tinea unguium (ICD-10 - B35.1) 02/18/2024 Type 1 diabetes mellitus with diabetic polyneuropathy (ICD-10 - E10.42) 05/19/2024 Tinea unguium (ICD-10 - B35.1) 05/19/2024 Type 1 diabetes mellitus with diabetic polyneuropathy (ICD-10 - E10.42) 08/18/2024 Tinea unguium (ICD-10 - B35.1) 08/18/2024 Type 1 diabetes mellitus with diabetic polyneuropathy (ICD-10 - E10.42) 11/24/2024 Type 1 diabetes mellitus with diabetic polyneuropathy (ICD-10 - E10.42) 11/24/2024 Tinea unguium (ICD-10 - B35.1) 11/24/2024 Other hammer toe(s) (acquired), right foot (ICD-10 - M20.41) Response to treatment,Impro vement 02/18/2024 Xerosis of skin (ICD-10 - L85.3) 08/18/2024 Other hammer toe(s) (acquired), right foot (ICD-10 - M20.41) Patient Educated with: DIABETIC FOOT CARE INSTRUCTIONS. pdf (DIABETIC FOOT CARE INSTRUCTIONS. pdf) 11/24/2024 Other hammer toe(s) (acquired), left foot (ICD-10 - M20.42) Response to treatment,Impro vement 08/18/2024 Other hammer toe(s) (acquired), left foot (ICD-10 - M20.42) Plan Of Treatment Pending Test Test Name Order Date Hemoglobin A1c 12/25/2014 Hemoglobin A1c 10/08/2015 X ray : Foot, right 3V 01/13/2018 19766-XHNNNCN NAIL, 6 OR MORE 04/18/2018 83351-MHRWONA NAIL, 6 OR MORE 06/22/2017 78555-NPCEVES NAIL, 6 OR MORE 09/21/2017 36373-RFNXGLS NAIL, 6 OR MORE 07/19/2018 76037-IHHBMYD NAIL, 6 OR MORE 10/18/2018 86413-ARORCDO NAIL, 6 OR MORE 01/17/2019 19831-QSQZEKB NAIL, 6 OR MORE 05/26/2019 33534-DJUNKJV NAIL, 6 OR MORE 08/25/2019 55704-SIWJVMC NAIL, 6 OR MORE 11/24/2019 49009-ZNBVYAM NAIL, 6 OR MORE 02/16/2020 03344-GETJVVR NAIL, 6 OR MORE 05/10/2020 87216-IOLOFMJ NAIL, 6 OR MORE 08/16/2020 83944-CZXWZFG NAIL, 6 OR MORE 11/15/2020 46083-YSICEFN NAIL, 6 OR MORE 02/11/2021 96563-EXJFMOA NAIL, 6 OR MORE 05/16/2021 90906-OAIIUOV NAIL, 6 OR MORE 08/15/2021 31770-XCDOUBT NAIL, 6 OR MORE 10/08/2015 88077-XNWSBXM NAIL, 6 OR MORE 12/17/2015 83777-IYGMLOV NAIL, 6 OR MORE 06/12/2014 22923-GJOACVT NAIL, 6 OR MORE 12/25/2014 40306-WAZKKEC NAIL, 6 OR MORE 06/16/2016 05035-HWXPPTY NAIL, 6 OR MORE 09/15/2016 04218-DEEOWFR NAIL, 6 OR MORE 12/18/2016 00576-IFBSHUK NAIL, 6 OR MORE 03/16/2017 34278-BRDVYDO NAIL, 6 OR MORE 06/30/2011 53107-WOARTJO NAIL, 6 OR MORE 09/29/2011 86731-WDCRJJV NAIL, 6 OR MORE 01/12/2012 00270-NKCHMCU NAIL, 6 OR MORE 04/12/2012 79738-LDTTKDP NAIL, 6 OR MORE 07/12/2012 74894-ZJCUFYL NAIL, 6 OR MORE 09/30/2012 47016-UMAUZPH NAIL, 6 OR MORE 12/13/2012 65442-ORIHQBZ NAIL, 6 OR MORE 03/14/2013 74005-KGPGZRL NAIL, 6 OR MORE 05/30/2013 18820-MMHSTSD NAIL, 6 OR MORE 08/22/2013 79176-GFRUGHP NAIL, 6 OR MORE 11/28/2013 38367-SDCLGAZ NAIL, 6 OR MORE 03/06/2014 09894-EXVRVAN NAIL, 6 OR MORE 11/14/2021 16771-PCNLCZL NAIL, 6 OR MORE 02/10/2022 17925-PGQECUN NAIL, 6 OR MORE 05/19/2022 99581-KMQUWTZ NAIL, 6 OR MORE 08/18/2022 88300-HIBYUDQ NAIL, 6 OR MORE 11/24/2022 37967-DYOVRQX NAIL, 6 OR MORE 02/19/2023 58589-NLYHQVR NAIL, 6 OR MORE 06/29/2023 58862-BBOFBNS NAIL, 6 OR MORE 10/05/2023 65104-KXLILFW NAIL, 6 OR MORE 02/18/2024 68578-LSYBXBW NAIL, 6 OR MORE 05/19/2024 05218-CDJTADF NAIL, 6 OR MORE 08/18/2024 94529-WUDEGLM NAIL, 6 OR MORE 11/24/2024 18198-OVALKOJ NAIL, 6 OR MORE 12/24/2017 55106-Pylcwtzz Plate 10/29/2017 16147-TNHO SKIN LESIONS, 2 TO 4 12/25/19 18 45282-QYGZ SKIN LESIONS, 2 TO 4 09/21/19 18 60887-TIWJ SKIN LESIONS, 2 TO 4 07/19/20 08081-HQCJ SKIN LESIONS, 2 TO 4 04/18/20 18 91850-HPDR SKIN LESIONS, 2 TO 4 08/25/20 19 01776-PGZB SKIN LESIONS, 2 TO 4 05/26/20 19 89128-UQWS SKIN LESIONS, 2 TO 4 01/18/20 19 92123-PEWW SKIN LESIONS, 2 TO 4 10/18/19 19 96468-OACG SKIN LESIONS, 2 TO 4 08/15/20 21 53973-GBAL SKIN LESIONS, 2 TO 4 05/16/20 21 96053-XFDZ SKIN LESIONS, 2 TO 4 02/12/20 21 45704-PPUG SKIN LESIONS, 2 TO 4 11/16/19 21 95040-TBOO SKIN LESIONS, 2 TO 4 08/16/20 20 40420-JBSG SKIN LESIONS, 2 TO 4 05/10/20 20 43230-IHBB SKIN LESIONS, 2 TO 4 02/16/20 20 42262-CZQB SKIN LESIONS, 2 TO 4 11/24/19 20 34640-CDVE SKIN LESIONS, 2 TO 4 03/06/20 14 60119-CCLC SKIN LESIONS, 2 TO 4 11/29/19 14 24629-CBAR SKIN LESIONS, 2 TO 4 08/22/20 13 90535-CPUH SKIN LESIONS, 2 TO 4 05/30/20 13 73506-FXQY SKIN LESIONS, 2 TO 4 03/14/20 13 53055-AMMX SKIN LESIONS, 2 TO 4 12/14/19 13 85277-RILN SKIN LESIONS, 2 TO 4 09/30/19 13 93356-VIOT SKIN LESIONS, 2 TO 4 06/22/20 17 32131-VMOP SKIN LESIONS, 2 TO 4 04/14/20 17 45631-ZKHM SKIN LESIONS, 2 TO 4 03/16/20 17 04354-NTZO SKIN LESIONS, 2 TO 4 09/15/19 17 55581-NZDK SKIN LESIONS, 2 TO 4 06/16/20 16 97594-BBXW SKIN LESIONS, 2 TO 4 12/26/19 15 79821-OBSA SKIN LESIONS, 2 TO 4 06/12/20 14 05701-JSAV SKIN LESIONS, 2 TO 4 12/17/19 16 00003-WURX SKIN LESIONS, 2 TO 4 10/08/19 16 15329-IIMC SKIN LESIONS, 2 TO 4 11/25/19 25 77770-EIHU SKIN LESIONS, 2 TO 4 08/18/20 24 76112-TIWW SKIN LESIONS, 2 TO 4 05/19/20 24 17178-TZBH SKIN LESIONS, 2 TO 4 02/18/20 24 32024-NFPN SKIN LESIONS, 2 TO 4 10/05/19 24 69530-VQPP SKIN LESIONS, 2 TO 4 06/29/20 23 13065-YAWH SKIN LESIONS, 2 TO 4 02/20/20 23 22092-TUQZ SKIN LESIONS, 2 TO 4 11/25/19 23 60808-YTIK SKIN LESIONS, 2 TO 4 08/18/20 22 22141-LBOG SKIN LESIONS, 2 TO 4 05/19/20 22 42933-ZUVH SKIN LESIONS, 2 TO 4 02/11/20 22 16766-XHZT SKIN LESIONS, 2 TO 4 11/15/19 22 Next Appt Details Provider Name:Darien Guerrier , 02/16/2025 12:45:00 PM, [address] [place] [address], [phone], Insurance Providers Payer Name Payer Address Payer Phone Subscriber Number Group Number Insured Name Patient Relationship to Insured Coverage Start Date Coverage End Date Medicare National [facility] [address] [place] [address] [id number] Papo Khan Self - patient is the insured [employer] [address] [place] [address] [phone] [id number] Papo Khan Self - patient is the insured Medical (General) History Medical History History ICD Code neuropathy mumps measles chicken pox cholesterol type I diabetes Surgical History Surgery Date(Month/Year) cataract surgery 1986, 1987 right hand surgery 2013
--- OUTSIDE RECORDS SUMMARY | 2025-01-01 15:16 | XMS_ITS | Clinical Summary ---
Author Organization [facility] [address] [facility] Address [address] [place] [address] Phone Care Team Providers Care Medical And Health Services Manager Name Role Phone Oneil Agrawal MD Primary Care Provider [phone] Allergies Active Allergy Reactions Criticality Noted Date Comments Codeine GI intolerance 08/05/2017 Other Reaction(s): SEVERE STOMACH CRAMPS Other Reaction(s): Stmach cramps Fluorouracil-Adhesive Bandage Rash 10/05/2024 Medications sod picosulf-mag ox-citric ac (Clenpiq) 10 mg-3.5 gram- 12 gram/175 mL solutionIndicati ons:Personal history of colon polyps, unspecified Take 175 mL by mouth 2 (two) times a day. 350 mL 5 Active omeprazole (PriLOSEC) [address] capsule Take 1 capsule (20 mg total) by mouth daily. 7 Active simvastatin (ZOCOR) 20 mg tablet Take 1 tablet (20 mg total) by mouth daily. 3 Active aspirin 81 mg chewable tablet Chew 1 tablet (81 mg total) daily. Active busPIRone (BUSPAR) 30 mg tablet Take 1 tablet (30 mg total) by mouth 2 times daily. 4 Active gabapentin (NEURONTIN) 100 mg capsule Take 3 capsules (300 mg total) by mouth. 4 Active cholecalciferol (VITAMIN D-3) 25 mcg (1,000 unit) tablet Take 1 tablet (1,000 Units total) by mouth daily. Active glucagon (Gvoke HypoPen 1-Pack) 1 mg/0.2 mL auto-injector Inject 1 mg under the skin once daily as needed. 3 Active infusion set for insulin pump infusion set as directed change 1-2 days due to scar tissue. 7 Active Encounters Date Type Department Care Team Description 12/04/2024 8:25 AM EDT Anesthesia Event [facility] Endoscopy [address] [place] [phone] Alejandra Fernandez MD 12/04/2024 7:21 AM EDT - 12/04/2024 11:59 PM EDT Hospital Encounter [facility] [address] [place] [phone] Linda Del Angel MD Hayes, Brett L, CRNA Freeman, Katharine O, MD Adenomatous polyp of colon, unspecified part of colon Discharge Disposition: Home or Self Care 10/05/2024 9:40 AM EST Office Visit Gastroenterology - [address] [phone] Emerita Cornelius, JOHANA Adenomatous polyp of colon, unspecified part of colon (Primary Dx) 10/05/2024 Telephone Gastroenterology - [address] [place] [phone] Linda Del Angel MD from Last 3 Months Surgical History Surgery Date Site/Laterality Comments COLONOSCOPY CATARACT EXTRACTION Bilateral Medical History Medical History Date Comments Diabetes mellitus ([facility] V24, [facility] V28) GERD (gastroesophageal reflux disease) Hyperlipidemia Colon polyp Anxiety Family History Medical History Relation Name Comments Colon cancer Mother Relation Name Status Comments Mother Social History Tobacco Use Types Packs/Day Years Used Date Smoking Tobacco: Never Smokeless Tobacco: Never Tobacco Cessation:Counseling Given: Not Answered Alcohol Use Standard Drinks/Week Comments Never 0 (1 standard drink = 0.6 oz pur e alcohol) Interpersonal Safety Answer Date Record ed Physical Abuse 12/04/2024 Verbal Abuse 12/04/2024 Sex and Gender Information Value Date Recorded Sex Assigned at Male 08/15/2024 3:23 PM EST Legal Sex Male 6:47 PM EST Gender Identity Male 08/15/2024 3:23 PM EST Sexual Orientation Straight 08/15/2024 3: 23 PM EST Obstetrics History Last Filed Vital Signs Vital Sign Reading Time Taken Comments Blood Pressure 123/57 12/04/2024 9:09 AM EDT Pulse 80 12/04/2024 9:09 AM EDT Temperature 36.1 ??C (97 ??F) 12/04/2024 8:14 AM EDT Respiratory Rate 17 12/04/2024 9:09 AM EDT Oxygen Saturation 100% 12/04/2024 9:09 AM EDT Inhaled Oxygen Concentration - - Weight 72.6 kg (160 lb) 12/04/2024 8:14 AM EDT Height 175.3 cm (5' 9 ) 12/04/2024 8:14 AM EDT Body Mass Index 23.63 12/04/2024 8:14 AM EDT Plan of Treatment Health Maintenance Due Date Last Done Comments Diabetes: Annual Foot Exam 1959 Diabetes: Annual Retina Eye Exam 1960 Cholesterol Screening (Lipid Panel) 10/05/2023 Depression Screening 10/05/2023 Medicare Annual Wellness Visit 10/05/2023 Social Influencers of Health Screening 10/05/2023 COVID-19 Vaccine (10 - Pfizer risk 2023- season) 2024 05/19/2024, 11/23/2023, 05/27/2023, Additional history exists Diabetes: Annual Urine Albumin-Creatinine Ratio (uACR) 12/15/2024 12/16/2023, 12/09/2022, 11/21/2021, Additional history exists Diabetes: Annual GFR (Glomerular Filtration Rate) 12/15/2024 12/16/2023, 06/22/2023, 12/09/2022, Additional history exists Diabetes: Blood Sugar Control Test (HGBA1C) 05/30/2025 11/27/2024, 08/28/2024 Falls Risk Assessment 12/04/2025 12/04/2024 DTaP,Tdap,and Td Vaccines (4 - Td or Tdap) 10/19/2026 10/19/2016, 12/30/2012, 09/06/2003 Colorectal Cancer Screening: Colonoscopy 12/04/2034 12/04/2024 Pneumococcal Vaccine: 50+ Years Completed 10/15/2015, 10/09/2014, 06/14/2013, Additional history exists Zoster Vaccines Completed 02/10/2020, 02/2019, 08/06/2009 Hepatitis C Screening Completed 02/16/2020 Influenza Vaccine Completed 05/19/2024, , 06/12/2022, Additional history exists RSV Immunization Adult Patients Completed 06/23/2024 HIB Vaccines Aged Out No longer eligi ble based on patient's age to complete this topic HPV Vaccines Aged Out No longer eligi ble based on patient's age to complete this topic Hepatitis A Vaccines Aged Out No long er eligible based on patient's age to complete this topic Hepatitis B Vaccines Aged Out No long er eligible based on patient's age to complete this topic IPV Vaccines Aged Out No longer eligi ble based on patient's age to complete this topic MMR Vaccines Aged Out No longer eligi ble based on patient's age to complete this topic Meningococcal ACWY Vaccine Aged Out N o longer eligible based on patient's age to complete this topic Meningococcal B Vaccine Aged Out No l onger eligible based on patient's age to complete this topic RSV Immunization Patients Under 20 months Aged Out No longer eligible based on patient's age to complete this topic Varicella Vaccines Aged Out No longer eligible based on patient's age to complete this topic Procedures Procedure Name Priority Date/Time Associated Diagnosis Comments COLONOSCOPY Routine 12/04/2024 8:48 AM EDT Adenomatous polyp of colon, unspecified part of colon from Last 3 Months Results * COLONOSCOPY Anesthesia - [facility]; [facility] (12/04/2024 8:48 AM EDT) Anatomical Region Laterality Modality Other 12/04/2024 8:22 AM EDT Impressions 12/04/2024 8:49 AM EDT - The examined portion of the ileum was normal. ? - Melanosis in the colon. ? - Internal hemorrhoids. ? - The examination was otherwise normal. ? - No specimens collected. Recommendation: ?- Repeat colonoscopy is not recommended for ? surveillance. Narrative 12/04/2024 8:49 AM EDT [facility] GI Patient Name: Papo Moreira Procedure Date: 12/04/2024 8:22 AM Date of : 1950 Age: 74 Gender: Male Note Status: Finalized Attending MD: Linda Del Angel MD, Procedure Date No Time: 12/04/2024 Procedure: ? Colonoscopy Indications: ? High risk colon cancer surveillance: Personal history ? of non-advanced adenoma Providers: ? Linda Del Angel MD Referring MD: ?Oneil Agrawal MD Medicines: ? Propofol per Anesthesia Complications: ? No immediate complications. Estimated Blood Loss: ? Estimated blood loss: none. Procedure: ? Pre-Anesthesia Assessment: ? - ASA Grade Assessment: II - A patient with mild ? systemic disease. ? After I obtained informed consent, the scope was ? passed under direct vision. Throughout the procedure, ? the patient's blood pressure, pulse, and oxygen ? saturations were monitored continuously.The ? Colonoscope was introduced through the anus and ? advanced to the terminal ileum. The colonoscopy was ? performed without difficulty. The patient tolerated ? the procedure well. The quality of the bowel ? preparation was good. Findings: ?The perianal and digital rectal examinations were ? normal. ? The terminal ileum appeared normal. ? A diffuse area of mild melanosis was found in the ? entire colon. ? Internal hemorrhoids were found during retroflexion. ? The hemorrhoids were Grade I (internal hemorrhoids ? that do not prolapse). ? The exam was otherwise without abnormality. Procedure Code(s): ? --- Professional --- ? G0105, Colorectal cancer screening; colonoscopy on ? individual at high risk Diagnosis Code(s): ? --- Professional --- ? Z86.010, Personal history of colonic polyps CPT copyright 2020 [employer]. All rights reserved. The codes documented in this report are preliminary and upon instruction assistant principal review may be revised to meet current compliance requirements. Linda Del Angel MD 12/04/2024 8:49:37 AM This report has been signed electronically.Linda Del Angel MD Number of Addenda: 0 Note Initiated On: 12/04/2024 8:22 AM Scope In: Scope Out: ? Endoscopy Department at [facility] - [address] [place] [address], ? [place] [address] Procedure Note Linda Del Angel MD - 12/04/2024 [facility] GI Patient Name: Papo Moreira Procedure Date: 12/04/2024 8:22 AM Date of : 1950 Age: 74 Gender: Male Note Status: Finalized Attending MD: Linda Del Angel MD, Procedure Date No Time: 12/04/2024 Procedure: Colonoscopy Indications: High risk colon cancer surveillance: Personalhistory of non-advanced adenoma Providers: Linda Del Angel MD Referring MD: Oneil Agrawal MD Medicines: Propofol per Anesthesia Complications: No immediate complications. Estimated Blood Loss: Estimated blood loss: none. Procedure: Pre-Anesthesia Assessment: - ASA Grade Assessment: II - A patient with mild systemic disease. After I obtained informed consent, the scope was passed under direct vision. Throughout theprocedure, the patient's blood pressure, pulse, and oxygen saturations were monitored continuously.The Colonoscope was introduced through the anus and advanced to the terminal ileum. The colonoscopy was performed without difficulty. The patient tolerated the procedure well. The quality of the bowel preparation was good. Findings: The perianal and digital rectal examinations were normal. The terminal ileum appeared normal. A diffuse area of mild melanosis was found in the entire colon. Internal hemorrhoids were found duringretroflexion. The hemorrhoids were Grade I (internal hemorrhoids that do not prolapse). The exam was otherwise without abnormality. Procedure Code(s): --- Professional --- G0105, Colorectal cancer screening; colonoscopy on individual at high risk Diagnosis Code(s): --- Professional --- Z86.010, Personal history of colonic polyps CPT copyright 2020 [employer]. All rights reserved. The codes documented in this report are preliminary and upon instruction assistant principal reviewmay be revised to meet current compliance requirements. Linda Del Angel MD 12/04/2024 8:49:37 AM This report has been signed electronically.Linda Del Angel MD Number of Addenda: 0 Note Initiated On: 12/04/2024 8:22 AM Scope In: Scope Out: Endoscopy Department at [facility] - [address] [place] [id number] IMPRESSION: - The examined portion of the ileum was normal. - Melanosis in the colon. - Internal hemorrhoids. - The examination was otherwise normal. - No specimens collected. Recommendation: - Repeat colonoscopy is not recommended for surveillance. Linda Del Angel MD GI~PROCEDURE ORDERABLES Final Result from Last 3 Months Insurance MEDICARE [facility] Care Teams Medical And Health Services Manager Relationship Specialty Start Date End Date Oneil Agrawal MD [address] [place] [address] PCP - General Internal Medicine 09/22/24
== END ==
LOC: HO.CARD 12:50
PROVIDERS: PCP Internal Medicine; Visit Provider Internal Medicine
DX: R06.09 Other forms of dyspnea (principal); E10.40 Type 1 diabetes mellitus with diabetic neuropathy, unspecified
CPT/HCPCS: 93306

== ENCOUNTER → 2025-01-01 12:59 | Outpatient (BNV) | payer MEDICARE, SELFPAY | PROVIDERS: PCP Internal Medicine; Visit Provider Internal Medicine | DX: I34.0 Nonrheumatic mitral (valve) insufficiency (principal); I36.1 Nonrheumatic tricuspid (valve) insufficiency | CPT/HCPCS: 93306 ==

== ENCOUNTER 2025-02-14 13:11 | Outpatient (AMB) | payer MEDICARE, SELFPAY ==
--- NOTE | 2025-02-14 13:31 | A.OFFVIS_ITS ---
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 Recently is neighbor of myocardial infarction and he discuss with his primary care physician and complained of occasional dyspnea especially with going uphill. Subsequently he was referred to us for further assessment. He is saying that he is active and walks regularly and does not get significant symptoms during walking but whenever he goes uphill or upstairs he gets shortness of breath. No chest discomfort. No syncope in the past. E chocardiography has shown normal LV function with some septal hypertrophy. He has background of hyperlipidemia and has been taking simvastatin. He also is diabetic and has peripheral neuropathy and has been using gabapentin. He in fact is type 1 diabetic and has an insulin pump. Blood pressure is well controlled. [facility] Social History (Updated 02/14/25 @ 13:40 by Gemini Durant [facility]) Unable to assess alcohol history related to: Unable to respond Patient Tobacco Use Status: Never used Tobacco Review of Systems Const Denies chills, Denies fatigue, Denies fever(s), Denies frequent falls, Denies weakness, Denies weight gain and Denies weight loss ENT Denies dizziness Card Denies chest pain, Denies leg edema, Reports lightheadedness, Denies palpitations, Reports dyspnea, Reports dyspnea on exertion and Denies orthopnea Resp Denies cough, Reports dyspnea and Reports dyspnea on exertion GI Denies bloating and Denies change in bowel habits Musc Denies muscle weakness, Denies numbness and Denies tingling Neuro Denies dizziness, Denies frequent falls, Denies numbness, Denies tingling and Denies weakness Endo Denies fatigue and Denies palpitations Physical Exam Vital Signs: Last Vital Signs Pulse 76 02/14/25 13:35 BP 130/72 02/14/25 13:35 BMI result Body Mass Index 25.1 GENERAL APPEARANCE: in no acute distress, pleasant. NECK: no carotid bruit, no jugular venous distention. SKIN: no suspicious lesions, warm and dry. HEART: no murmurs, regular rate and rhythm. LUNGS: clear to auscultation bilaterally. ABDOMEN: soft, nontender. EXTREMITIES: no edema. PERIPHERAL PULSES: equal. NEUROLOGIC: No gross deficits, AAO X 3 Office Procedures EKG Details: Sinus rhythm 76 beats per minute, normal axis, nonspecific ST changes, QTC 427 milliseconds. 95004-Hdlgaermyqyqycyzu, Complete Results Reviewed Results Reviewed: Patient: Papo Moreira MR#: [id number] : 1950 Acct:[id number] Age/Sex: 74 / M ADM Date: 01/01/25 Loc: [facility] Attending Dr: Oneil Agrawal MD Ordering Physician: Oneil Agrawal MD Date of Service: 01/01/25 Procedure(s): CA echo transthoracic complete Accession Number(s): cc: Oneil Agrawal MD~ Transthoracic Echocardiogram Patient (Last, First, Middle): Papo Moreira, Gender: Male Date of : 1950 Age: 74 Procedure Date: 01/01/2025 Procedure Type: Transthoracic Echocardiogram Location: OP Height: 175.26 cm Weight: 74.39 kg BSA: 1.90 m2 Heart Rate: bpm BP: 117 / 60 mmHg 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 The calculated ejection fraction is 57% by biplane method. - Moderate focal hypertrophy of the basal septum. - No obvious valvular pathology seen on this study. Findings Left Ventricle Normal left ventricular cavity size. The left ventricular systolic function is normal. The calculated ejection fraction is 57% by biplane method. There is no evidence of regional wall motion abnormalities. Diastolic function is normal for age. Moderate focal hypertrophy of the basal septum. Right Ventricle Normal right ventricular cavity size and systolic function. Atria Both atria are normal in size. Aortic Valve There is a normal trileaflet aortic valve. There is no aortic valve stenosis. There is no aortic valve regurgitation. Mitral Valve The mitral valve appears normal. There is trace mitral valve regurgitation. There is no mitral valve stenosis. Pulmonic Valve The pulmonic valve is likely normal. Tricuspid Valve Normal tricuspid valve structure. There is trace tricuspid valve regurgitation. There is no evidence of pulmonary hypertension. Great Vessels The asc aorta is normal in size. Venous The inferior vena cava is normal in size and collapses greater than 50% with inspiration. Pericardium/Pleural There is no evidence of pericardial effusion. Prior Study Comparison No prior study available for comparison. Recommendations, Care & Conclusions No obvious valvular pathology seen on this study. Measurements 2D Linear Measurements IVSd: 1.26 0.6-0.9/0.6-1.0 cm LVIDd: 3.74 3.9-5.3/4.2-5.9 cm LVIDd Index: 1.97 2.4-3.2/2.2-3.1 cm/m2 LVIDs: 2.35 2.0-3.6 cm LVPWd: 1.22 0.7-1.1 cm Ao Root: 3.20 2.1-3.5 cm LA Diam: 3.80 2.7-3.8/3.0-4.0 cm LAIDs Index: 2.00 1.5-2.3 cm/m2 LV Mass: 195.86 67-162/88-224 g LV Mass Index: 103.08 43-95/49-115 g/m2 LVOT Diam: 2.30 3.0+(-)1.3 cm 2D Systolic Function EF 4C: 62.40 >55% EF 2C: 46.30 >55% EF BiP: 56.50 >55% Mitral Valve MV Pk E: 0.67 MV PK A: 0.86 MV Decel Time: 335.00 E/A: 0.80 E'Lateral: 12.10 E'Medial: 7.18 E/E' Med: 9.30 E/E' Lat: 5.50 PHT: 98.00 MVA PHT: 2.24 Decel [place]: 1.99 Aortic Valve AoV Pk Christopher: 1.25 AoV Pk Grad: 6.00 LVOT LVOT Pk Christopher: 0.78 LVOT Mn Christopher: 0.47 LVOT VTI: 0.19 LVOT Pk Grad: 2.00 LVOT Mn Grad: 1.00 LVOT Diam: 2.30 LVOT Area: 4.15 Diastolic Function MV Pk E: 0.67 MV Pk A: 0.86 E/A: 0.80 E'Medial: 7.18 E/E' Med: 9.30 E' Laterial: 12.10 E/E' Lat: 5.50 Right Ventricle TAPSE (mm): 19.00 TVS' Christopher: 15.00 Tricuspid Valve TR Pk Christopher: 2.24 TR Pk Grad: 20.00 RA Press: 3.00 RVSP: 23.00 Great Vessels Aorta Ao Root-2D: 3.20 2.0-3.7 cm Ao Asc: 3.30 2.1-3.4 cm Pulmonary Valve PV Pk Christopher: 0.92 Peak PV Grad: 3.00 Updated in Other Vendor System with Status of Final Jay Jay Barajas MD electronically signed on 01/02/2025 8:40:07 AM with status of Final Assessment & Plan Assessment & Plan (1) Dyspnea on exertion: Code(s): R06.09 - Other forms of dyspnea Category: Medical Plan Very pleasant 74 year gentleman who is here for assessment of dyspnea. He has been experiencing dyspnea with going uphill and upstairs. No chest discomfort. He has been a type 1 diabetic for many decades. He is currently on an insulin pump. Blood pressure is well controlled. He is on simvastatin and his LDL cholesterol has been in 70s. We discussed in detail about management options including stress test versus coronary CTA. After discussion we have decided to proceed with coronary CTA. We will do basic blood workup today. He will see us after the coronary CTA is performed. Thank you for allowing me to participate in the care of your patient. Please feel free to contact me if you have any questions. Orders: Orders Basic Metabolic Panel 02/14/25 R06.09 - Other forms of dyspnea Complete Blood Count no Diff 02/14/25 R06.09 - Other forms of dyspnea CT Cardiac Coronary Angio 02/14/25 R06.09 - Other forms of dyspnea CRP High Sensitivity 02/14/25 R06.09 - Other forms of dyspnea Coding Level of Care Code New Pt Level 4 (83935) Complex EM visit Add On G2211 Diagnoses Dyspnea on exertion R06.09 CPT Codes EKG - CPT: 96155-Kcczzkqgidbyysldm, Complete ([id number])
[2025-02-14 13:35] VITALS: BP 130/72; PULSE 76; BMI 25.1
--- OUTSIDE RECORDS SUMMARY | 2025-02-14 14:49 | XMS_ITS | Patient Health Record ---
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 Name Role Phone Oneil Agrawal MD Primary Care Provider Unavaila Darien Lema Unavailable [phone] Allergies Allergen (clinical drug ingredient) Drug/Non Drug Allergy documented on EMR Reaction Allergy Type Onset Date Status Adhesive rash Allergy Active codeine Codeine Stmach cramps Drug Allergy Act dennis Results Component Value Reference Range Notes HEMOGLOBIN A1C (GLYCOHEMOGLO BIN) Reviewed date:09/19/2024 12:53:06 PM Interpretation: Performing Lab: Notes/Report: HEMOGLOBIN A1C % (HH) 6.3 HEMOGLOBIN A1C (GLYCOHEMOGLO BIN) Reviewed date:11/24/2024 08:57:14 AM Interpretation: Performing Lab: Notes/Report: HEMOGLOBIN A1C % (HH) 6.8 HEMOGLOBIN A1C (GLYCOHEMOGLO BIN) Reviewed date:08/18/2024 08:41:26 AM Interpretation: Performing Lab: Notes/Report: TOTAL HEMOGLOBIN (HGBA1C) 6.6 Reason For Referral No Information Medications Medication [...] Problem Acquired hammer toe of right foot (8706884780236845 ) Other hammer toe(s) (acquired), right foot (M20.41) Active confirmed Response to treatment, Improvemen t Problem Acquired hammer toe of left foot (7605917568061454 ) Other hammer toe(s) (acquired), left foot (M20.42) Active confirmed Response to treatment, Improvemen t Problem Polyneuropathy due to diabetes mellitus type I (711166219) Type 1 diabetes mellitus with diabetic polyneuropathy (E10.42) Active confirmed Vital Signs Blood pressure diastolic 62 mm Hg 11/24/2024 Height 5ft9in in 11/24/2024 Blood pressure systolic 120 mm Hg 11/24/2024 Weight 165 lbs 11/24/2024 BMI 24.36 kg/m2 11/24/2024 Procedures Procedure Date Ordered Date Performed Result Body Sit e 08991-YYXHXYR NAIL, 6 OR MORE 02/18/2024 N/A 81957-GZKQ SKIN LESIONS, 2 TO 4 02/18/2024 N/A 78548-QXJMKYH NAIL, 6 OR MORE 05/19/2024 N/A 40371-ISVT SKIN LESIONS, 2 TO 4 05/19/2024 N/A 05781-VLPYMPI NAIL, 6 OR MORE 08/18/2024 N/A 38408-PZGL SKIN LESIONS, 2 TO 4 08/18/2024 N/A 95859-HLYMELG NAIL, 6 OR MORE 11/24/2024 N/A 47396-XEGH SKIN LESIONS, 2 TO 4 11/24/2024 N/A Encounters Encounter Location Date Provider Diagnosis [address] [address] 02/18/2024 Darien Chey Type 1 diabetes mellitus with diabetic polyneuropathy E10.42 ; Tinea unguium B35.1 and Xerosis of skin L85.[address] [address] 05/19/2024 Darien Chey Type 1 diabetes mellitus with diabetic polyneuropathy E10.42 and Tinea unguium B35.[address] [address] 08/18/2024 Darien Chey Type 1 diabetes mellitus with diabetic polyneuropathy E10.42 ; Tinea unguium B35.1 ; Other hammer toe(s) (acquired), right foot M20.41 and Other hammer toe(s) (acquired), left foot M20.[address] [address] 11/24/2024 Darienevie MárquezChey Type 1 diabetes mellitus [...] X ray : Foot, right 3V 01/13/2018 96823-DEPTPYZ NAIL, 6 OR MORE 04/18/2018 79740-YOVCFUM NAIL, 6 OR MORE 06/22/2017 23587-XOVMGDM NAIL, 6 OR MORE 09/21/2017 27800-YTWPEKP NAIL, 6 OR MORE 07/19/2018 77426-PRNEQLP NAIL, 6 OR MORE 10/18/2018 30405-XFTAEIQ NAIL, 6 OR MORE 01/17/2019 46810-QPOCOVQ NAIL, 6 OR MORE 05/26/2019 54218-LIXVLFD NAIL, 6 OR MORE 08/25/2019 06351-RYGASPS NAIL, 6 OR MORE 11/24/2019 25909-QUKBQPL NAIL, 6 OR MORE 02/16/2020 02087-CWTXLOL NAIL, 6 OR MORE 05/10/2020 50641-SFUUTFO NAIL, 6 OR MORE 08/16/2020 00848-LBILIVK NAIL, 6 OR MORE 11/15/2020 30732-GJMUFMF NAIL, 6 OR MORE 02/11/2021 43347-ZXHTCPR NAIL, 6 OR MORE 05/16/2021 25435-ZQMRAYJ NAIL, 6 OR MORE 08/15/2021 07770-KGBCARJ NAIL, 6 OR MORE 10/08/2015 47608-HCCHVWG NAIL, 6 OR MORE 12/17/2015 56772-HSMCTEV NAIL, 6 OR MORE 06/12/2014 06091-YVVVUWJ NAIL, 6 OR MORE 12/25/2014 62846-DCVPWCN NAIL, 6 OR MORE 06/16/2016 07510-CFPVMTH NAIL, 6 OR MORE 09/15/2016 97409-PEVQSSA NAIL, 6 OR MORE 12/18/2016 86307-JJLGCND NAIL, 6 OR MORE 03/16/2017 26090-NNZMIWG NAIL, 6 OR MORE 06/30/2011 39829-ZFWFWFP NAIL, 6 OR MORE 09/29/2011 72579-QJRGRRU NAIL, 6 OR MORE 01/12/2012 17637-KNZWTJA NAIL, 6 OR MORE 04/12/2012 29188-NRDJDUN NAIL, 6 OR MORE 07/12/2012 84786-VJHJELA NAIL, 6 OR MORE 09/30/2012 29412-DEFWTWH NAIL, 6 OR MORE 12/13/2012 71282-KQZIBLK NAIL, 6 OR MORE 03/14/2013 92114-SEXYUMS NAIL, 6 OR MORE 05/30/2013 71464-EANJLQS NAIL, 6 OR MORE 08/22/2013 01604-QFECQVF NAIL, 6 OR MORE 11/28/2013 39308-OVCIFSZ NAIL, 6 OR MORE 03/06/2014 65681-NYKPUCV NAIL, 6 OR MORE 11/14/2021 68828-YYUTOMO NAIL, 6 OR MORE 02/10/2022 83739-HTBEQMK NAIL, 6 OR MORE 05/19/2022 83747-HVMWCMY NAIL, 6 OR MORE 08/18/2022 54786-YUCFJOD NAIL, 6 OR MORE 11/24/2022 54301-BQXWPRH NAIL, 6 OR MORE 02/19/2023 15415-THVWZZS NAIL, 6 OR MORE 06/29/2023 75855-AJAZURN NAIL, 6 OR MORE 10/05/2023 37710-SNRPUJL NAIL, 6 OR MORE 02/18/2024 98584-DTRLOVH NAIL, 6 OR MORE 05/19/2024 10297-QHPJJHA NAIL, 6 OR MORE 08/18/2024 94816-EPLCQMR NAIL, 6 OR MORE 11/24/2024 83997-UOJTPTH NAIL, 6 OR MORE 12/24/2017 46463-Umsybuqn Plate 10/29/2017 81054-TXCU SKIN LESIONS, 2 TO 4 12/25/19 18 93960-OQVM SKIN LESIONS, 2 TO 4 09/21/19 18 96324-TYJJ SKIN LESIONS, 2 TO 4 07/19/20 57060-UCGP SKIN LESIONS, 2 TO 4 04/18/20 18 61084-IXOM SKIN LESIONS, 2 TO 4 08/25/20 19 25845-CWJG SKIN LESIONS, 2 TO 4 05/26/20 19 94762-ALNX SKIN LESIONS, 2 TO 4 01/18/20 19 90778-NCYA SKIN LESIONS, 2 TO 4 10/18/19 19 69693-GVVS SKIN LESIONS, 2 TO 4 08/15/20 21 07243-OQNP SKIN LESIONS, 2 TO 4 05/16/20 21 69176-ODPT SKIN LESIONS, 2 TO 4 02/12/20 21 49010-JEPJ SKIN LESIONS, 2 TO 4 11/16/19 21 95820-XRWS SKIN LESIONS, 2 TO 4 08/16/20 20 87135-GMJC SKIN LESIONS, 2 TO 4 05/10/20 20 94864-IMHX SKIN LESIONS, 2 TO 4 02/16/20 20 36954-LJSO SKIN LESIONS, 2 TO 4 11/24/19 20 09179-LVJF SKIN LESIONS, 2 TO 4 03/06/20 14 68453-ENAF SKIN LESIONS, 2 TO 4 11/29/19 14 99599-JDDV SKIN LESIONS, 2 TO 4 08/22/20 13 40773-YVDN SKIN LESIONS, 2 TO 4 05/30/20 13 16712-DPWB SKIN LESIONS, 2 TO 4 03/14/20 13 38720-HHNJ SKIN LESIONS, 2 TO 4 12/14/19 13 18342-FOFU SKIN LESIONS, 2 TO 4 09/30/19 13 49878-OZXS SKIN LESIONS, 2 TO 4 06/22/20 17 39623-PNSY SKIN LESIONS, 2 TO 4 04/14/20 17 98776-RBRY SKIN LESIONS, 2 TO 4 03/16/20 17 18722-DDTX SKIN LESIONS, 2 TO 4 09/15/19 17 90126-QPFO SKIN LESIONS, 2 TO 4 06/16/20 16 19830-ABNN SKIN LESIONS, 2 TO 4 12/26/19 15 03797-ZDDX SKIN LESIONS, 2 TO 4 06/12/20 14 43294-YCMH SKIN LESIONS, 2 TO 4 12/17/19 16 47239-TIOR SKIN LESIONS, 2 TO 4 10/08/19 16 14396-TNSK SKIN LESIONS, 2 TO 4 11/25/19 25 01249-MHTS SKIN LESIONS, 2 TO 4 08/18/20 24 63531-HOPP SKIN LESIONS, 2 TO 4 05/19/20 24 31781-HGJX SKIN LESIONS, 2 TO 4 02/18/20 24 45361-OGTD SKIN LESIONS, 2 TO 4 10/05/19 24 75488-VDKX SKIN LESIONS, 2 TO 4 06/29/20 23 06664-NCSF SKIN LESIONS, 2 TO 4 02/20/20 23 87986-ZDEG SKIN LESIONS, 2 TO 4 11/25/19 23 16754-YOGT SKIN LESIONS, 2 TO 4 08/18/20 22 18780-XWTR SKIN LESIONS, 2 TO 4 05/19/20 22 91103-DYES SKIN LESIONS, 2 TO 4 02/11/20 22 12081-LQYA SKIN LESIONS, 2 TO 4 11/15/19 22 Next Appt Details Provider Name:Darien Guerrier , 02/16/2025 12:45:00 PM, [address] [place] [address], [phone], Insurance Providers Payer Name Payer Address Payer Phone Subscriber Number Group Number Insured Name Patient Relationship to Insured Coverage Start Date Coverage End Date Medicare [facility] [address] [place] [address] [id number] Papo Khan Self - patient is the insured [employer] [address] [place] [address] [phone] [id number] Papo Khan Self - patient is the insured Medical (General) History Medical History History ICD Code neuropathy mumps measles chicken pox cholesterol type I diabetes Surgical History Surgery Date(Month/Year) cataract surgery 1986, 1987 right hand surgery 2013
== END 2025-02-14 14:13 | disposition home or self-care (01) ==
LOC: HO.HCS 13:12
PROVIDERS: PCP Internal Medicine; Visit Provider Internal Medicine Cardiovascular Disease
DX: R06.09 Other forms of dyspnea (principal)
CPT/HCPCS: 99204; G2211

== ENCOUNTER → 2025-02-14 13:11 | Outpatient (BNVA) | payer MEDICARE, SELFPAY | PROVIDERS: PCP Internal Medicine; Visit Provider Internal Medicine Cardiovascular Disease | DX: R06.09 Other forms of dyspnea (principal); R94.31 Abnormal electrocardiogram [ECG] [EKG] | CPT/HCPCS: 93005; 99202 ==

== ENCOUNTER 2025-06-27 14:25 | Outpatient (AMB) | payer MEDICARE, SELFPAY ==
--- OUTSIDE RECORDS SUMMARY | 2024-01-07 04:45 | XMS_ITS ---
Author Organization [facility] Address [address] [place] [id number] Care Team Providers Care Certified Hyperbaric Technician Name Role Phone Oneil Agrawal MD Primary Care Provider Unavaila Darien Lema Unavailable [phone] Encounters Encounter Location Date Provider Diagnosis [address] [address] 01/07/2024 Darien Guerrier Plan Of Treatment Next Appt Details Provider Name:Darien Guerrier , 08/07/2025 02:30:00 PM, [address] [place] [address], [phone], Progress Notes * Papo LANDEROS EDOB:[birth year] (75 yo M)Acc No.[id number]:01/07/2024 Progress Note Patient: Papo DAS Provider: Katja Guerrier DPM :1950 A ge:73 Y S ex:Male Date:01/07/2024 Address:[address] [place] [address] [place] [id number] Pcp:Oneil Agrawal MD Subjective: * Chief Complaints: * * Medical History: Objective: * Vitals: Assessment: Plan: * Treatment: * Images: * The named appointment provid er may or may not be the originator of this progress note, and it is not deemed complete until electronically signed by the appointment provider. Sign off status: Pending * Provider: Katja Guerrier DPM Date: 0 01/07/2024 Generated for Dawood Coronado on: 08:37 PM EDT
--- OUTSIDE RECORDS SUMMARY | 2025-06-22 08:30 | XMS_ITS | Encounter Summary ---
Author Organization [facility] Address [address] [address] Phone Care Team Providers Care Chainstitch Tunnel Elastic Operator Name Role Phone Oneil Agrawal MD Unavailable [phone] Oneil Agrawal MD Primary Care Provider [phone] Chey Hayes DPM, Erik Unavailable [phone] Ankita Calle MD Unavailable [phone] Virgilio Bedoya MD Unavailable Papo Hui MD Unavailable Unavailabl e Reason for Visit * Reason Comments Follow-up 6 month f/u Procedure Upcoming prostate bx scheduled with Dr. Givens 07/04/25 Encounter Details Date Type Department Care Team (Latest Contact Info) Description 06/22/2025 8:30 AM EDT Office Visit [facility] [address] [place], [place] [phone] Oneil Agrawal MD [address] [place] [address] [email or web address] Pure hypercholesterolemia (Primary Dx); Need for prophylactic vaccination and inoculation against influenza; Prostate cancer; Dyspnea on exertion; Gastroesophageal reflux disease with esophagitis, unspecified whether hemorrhage Social History Tobacco Use Types Packs/Day Years Used Date Smoking Tobacco: Never Smokeless Tobacco: Never Alcohol Use Standard Drinks/Week Comments Never 0 (1 standard drink = 0.6 oz pur e alcohol) Education Answer Date Recorded Are you interested in more education? Not on jacey e 12/31/2022 Are you concerned about learning? Not on file 12/31/2022 No 12/31/2022 No 12/31/2022 Digital Access Answer Date Recorded No 01/31/2023 No 01/31/2023 Reliable internet access at home? Not on file 01/31/2023 Device with a working camera? Not on file Intimate Partner Violence Answer Date R ecorded Denied Basic Needs Not on file 12/18/2024 In the past 12 months have y ou been in a relationship with a person who hurts, threatens, or tries to control you? No 12/18/2024 Worried food would run out Not on file 12/18 In the past 12 months have y ou been in a relationship with a person who hurts, threatens, or tries to control you? No 12/18/2024 Sex and Gender Information Value Date Recorded Sex Assigned at Male 05/10/2021 8:53 AM EDT Legal Sex Male 4:48 PM EST Gender Identity Not on file Sexual Orientation Straight 05/10/2021 8: 53 AM EDT documented as of this encounter Last Filed Vital Signs Vital Sign Reading Time Taken Comments Blood Pressure 124/52 06/22/2025 8:26 AM EDT Pulse 73 06/22/2025 8:26 AM EDT Temperature 36.9 C (98.5 F) 06/22/2025 8:26 AM EDT Respiratory Rate - - Oxygen Saturation 99% 06/22/2025 8:26 AM EDT Inhaled Oxygen Concentration - - Weight 76.7 kg (169 lb 3.2 oz) 06/22/2025 8:26 A M EDT Height 172.3 cm (5' 7.84 ) 06/22/2025 8:26 AM ED T Body Mass Index 25.85 06/22/2025 8:26 AM EDT documented in this encounter Progress Notes * Oneil Agrawal MD - 06/22/2025 8:30 AM EDT Subjective Papo Moreira is a 75 y.o. male. History of Present Illness Papo Forrester is a 75 year old male who presents for follow-up regarding his recent blood work and upcoming biopsy. He recently underwent blood work in preparation for an upcoming biopsy and a CTA. The blood work showed a slightly elevated BUN of 25, but creatinine levels were normal. His LDL was 77, and his MCV was slightly abnormal, but B12 and folate levels were normal. He has GERD which is controlled with Omeprazole. No recent heart burn. He is currently on simvastatin 20 mg, which was started as a preventive measure. He takes gabapentin for neuropathy, with gradual dose increases over the past year, currently at 200 mg. He has not noticed any memory issues. He is also on Buspar for anxiety. He experiences occasional shortness of breath, particularly when climbing stairs, but can walk a mile on flat terrain without difficulty. No pain or significant breathing issues during these activities. He is scheduled for a biopsy in two weeks due to a gradual increase in PSA levels over the years. He has not had a biopsy in four to five years. No stomach pain, leg swelling, or foot problems aside from neuropathy. He sees a foot doctor, Howie Mayer, for regular check-ups. He is up to date with his immunizations. Current Outpatient Medications Ordered in [facility] Medication Sig ACCU-CHEK GUIDE TEST STRIPS Strp strips Use up to 3 times per day in event of no cgm data, erroneous cgm data, or if symptoms don't match cgm data to verify and calibrate cgm. Pt has Accuchek guide meter that links directly to his 780g pump. aspirin 81 mg chewable tablet Take 81 mg by mouth daily. BD ULTRA FINE LANCETS 33 gauge Misc Inject 1 each into the skin as needed. Up to 8 times per day BENEFIBER, GUAR GUM, ORAL Take 1 teaspoonful by mouth every morning. busPIRone (BUSPAR) 30 MG tablet Take 1 tablet (30 mg total) by mouth 2 (two) times a day. cholecalciferol (VITAMIN D3) 1,000 unit tablet Take 1,000 Units by mouth daily. gabapentin (NEURONTIN) 100 MG capsule TAKE 4 CAPSULES EVERY EVENING E11.40 (Patient taking differently: Take 100 mg by mouth every evening. E11.40) gabapentin (NEURONTIN) 300 MG capsule Take 1 capsule (300 mg total) by mouth 2 (two) times a day. E10.40 (Patient taking differently: Take 300 mg by mouth every evening. E10.40) GVOKE HYPOPEN 2-PACK 1 mg/0.2 mL subcutaneous auto-injector Inject 0.2 mL (1 mg total) under the skin as needed (in case of severe low glucose requiring assistance). E10.40 HUMALOG U-100 INSULIN 100 unit/mL injection vial Inject 100 Units under the skin daily. Via insulinpump infusion set for insulin pump (MINIMTamoco INFUSION SET-MMT 392) ISet as directed change 1-2 days due to scar tissue. LANTUS SOLOSTAR U-100 INSULIN 100 unit/mL (3 mL) InPn injection pen INJECT 25 UNITS UNDER THE SKIN DAILY(IN CASE OF INSULIN PUMP FAILURE) DX:E10.40 Medication-Free Text Indications: Oh My Glasses CGM Guardian 4 omeprazole (PRILOSEC) 20 MG capsule Take 1 capsule (20 mg total) by mouth daily. senna-docusate (COLACE 2-IN-1) 8.6-50 mg Take 1 tablet by mouth nightly at bedtime. simvastatin (ZOCOR) 20 MG tablet Take 1 tablet (20 mg total) by mouth daily. Review of Systems Denies headaches/chest pains Objective Physical Exam BP 124/52 (BP Location: Right arm, Patient Position: Sitting, Cuff Size: Medium) Pulse 73 Temp 36.9 ??C (98.5 ??F) (Oral) Ht 172.3 cm (5' 7.84 ) Wt 76.7 kg (169 lb 3.2 oz) SpO2 99% BMI 25.85 kg/m?? CONSTITUTIONAL: Appears well- developed and well nourished. Cooperative, patient is alert. HEENT:PERRTL, EOM intact, fundi benign, TM's clear, throat clear. NECK: supple, no thyroid megaly, no adenopathy. LUNGS: clear to A&P,no wheezing/rhonichi/rales. HEART: RRR S1S2 without murmurs, rubs or gallops. ABDOMEN: bowel sounds: normal, soft non tender without masses. EXTREMITIES: without edema, clubbing or cyanosis. Assessment & Plan Type 1 Diabetes Mellitus with Diabetic Neuropathy Chronic neuropathy managed with gabapentin. Symptoms increased over the past year, requiring dosagetitration. No memory issues reported with gabapentin. - Continue gabapentin 100 mg, 4 capsules every evening. - Monitor neuropathy symptoms and adjust gabapentin dosage as needed. Dyspnea on Exertion Intermittent dyspnea on exertion, particularly on stairs. CTA performed recently. Further functional testing considered. - Consider stress test based on shipping & receiving lead's advice. Pure Hypercholesterolemia LDL cholesterol at 77 mg/dL, slightly above target. Managed with simvastatin due to increased cardiac risk from diabetes. - Continue simvastatin 20 mg oral daily. - Ensure shipping & receiving lead receives a copy of recent lipid panel results. I obtained verbal consent from the patient or their proxy to record this visit for purposes of producing a draft of the encounter documentation. documented in this encounter Plan of Treatment Upcoming Encounters Date Type Department Care Team (Late st Contact Info) Description 08/14/2025 9:20 AM EST Office Visit [facility] [address] [place] [address] [place] [address] Lorene Magallanes, HARRIS [address] [place] [address] 11/12/2025 11:20 AM EDT Office Visit [facility] [address] [place] [address] Lorene Magallanes, TAX RECORD CLERK [address] [place] [address] 01/03/2026 8:20 AM EDT Office Visit [facility] Internal Medicine [address] [place] [address] Cisco Mccarthy PA-C [address] [place] [address] [email or web address] documented as of this encounter Visit Diagnoses Diagnosis Pure hypercholesterolemia- Primary Need for prophylactic vaccination and inoculation against influenza Prostate cancer Malignant neoplasm of prostate Dyspnea on exertion Other dyspnea and respiratory abnormality Gastroesophageal reflux disease with esophagitis, unspecified whether hemorrhage documented in this encounter Additional Health Concerns Assessment Noted Time PHQ-2 Depression Total Score: 0 12/19/19 25 9:06 AM EDT documented as of this encounter Care Teams Chainstitch Tunnel Elastic Operator Relationship Specialty Start Date End Date Oneil Agrawal MD [address] [place] [address] [email or web address] PCP - General Internal Medicine 07/27/17 Oneil Agrawal MD [address] [place] [address] [email or web address] Insurance Assigned Provider 12/11/23 Darien Guerrier DPM [address] [place] [address] Podiatry 12/04/19 Ankita Calle MD 22 [facility], 1st [place] [address] [email or web address] Internal Medicine 02/19/20 Virgilio Bedoya MD [address] [place] [address] Ophthalmology 05/16/20 Papo Hui MD Internal Medicine 05/16/20 documented as of this encounter Additional Source Comments The information contained in this document represents components of the legal health record. It is not the complete legal health record.[facility]
--- NOTE | 2025-06-27 14:39 | MHC.OFFVIS ---
Vital Signs 06/27/25 14:40 Height 5 ft 8 in Weight 169 lb 12.095 oz BMI 25.8 BP 130/70 Blood Pressure Location Lt brachial Position Sitting Pulse 80 Pulse Source Pulse Oximeter Intake Visit Reasons: r/s 06/04/25 3 mos followup cta Intake Note: r/s 3mth f/up Traveling Sales Representative Required: No Accompanied by: Self / Same As Patient Allergies codine Allergy (Severe, Uncoded 02/14/25 13:37) Stomach Upset Medication List - Last Reconciled 06/27/25 by Wilfrido Cordon MD buspirone 30 mg PO BID cholecalciferol (vitamin D3) 25 mcg PO DAILY gabapentin mg PO insulin lispro (Humalog U-100 Insulin) 100 units subcut DAILY omeprazole 20 mg PO DAILY sennosides-docusate sodium 8.6-50 mg (Colace 2-In-1) 1 tab-cap PO BEDTIME simvastatin 20 mg PO BEDTIME HPI Comments Details: 75-year-old gentleman who is here for establishing cardiovascular care. Recently is neighbor of myocardial infarction and he discuss with his primary care physician and complained of occasional dyspnea especially with going uphill. Subsequently he was referred to us for further assessment. He is saying that he is active and walks regularly and does not get significant symptoms during walking but whenever he goes uphill or upstairs he gets shortness of breath. No chest discomfort. No syncope in the past. Echocardiography has shown normal LV function with some septal hypertrophy. He has background of hyperlipidemia and has been taking simvastatin. He also is diabetic and has peripheral neuropathy and has been using gabapentin. He in fact is type 1 diabetic and has an insulin pump. Blood pressure is well controlled. 06/27/2025: He underwent coronary CTA. No significant disease in LAD or RCA. Circumflex had diffuse calcification. CTA FFR was done which showed abnormal CTA for for distally in an OM 3. Overall inference was that no hemodynamically significant coronary disease is present. He continues to have off and on dyspnea but no consistent symptoms. He is taking simvastatin 20 mg daily in his LDL cholesterol is 77. Coronary CTA also picked up incidental 15 mm lesion in the liver which was thought to be hemangioma and further imaging was advised by the radiologist. [facility] Social History Patient Tobacco Use Status: Never used Tobacco Review of Systems Const Denies chills, Denies fatigue, Denies fever(s), Denies frequent falls, Denies weakness, Denies weight gain and Denies weight loss ENT Denies dizziness Card Denies chest pain, Denies leg edema, Denies lightheadedness, Denies palpitations, Denies dyspnea and Denies dyspnea on exertion Resp Denies cough, Denies dyspnea and Denies dyspnea on exertion GI Denies hematochezia Musc Denies abnormal gait, Denies muscle weakness, Denies numbness, Denies radiating pain into limb and Denies tingling Neuro Denies abnormal gait, Denies dizziness, Denies frequent falls, Denies numbness, Denies tingling and Denies weakness Endo Denies fatigue and Denies palpitations Physical Exam Vital Signs: Last Vital Signs Pulse 80 06/27/25 14:40 BP 130/70 06/27/25 14:40 BMI result Body Mass Index 25.8 GENERAL APPEARANCE: in no acute distress, pleasant. NECK: no carotid bruit, no jugular venous distention. SKIN: no suspicious lesions, warm and dry. HEART: no murmurs, regular rate and rhythm. LUNGS: clear to auscultation bilaterally. ABDOMEN: soft, nontender. EXTREMITIES: no edema. PERIPHERAL PULSES: equal. NEUROLOGIC: No gross deficits, AAO X 3 Assessment & Plan Assessment & Plan (1) Dyspnea on exertion: Code(s): R06.09 - Other forms of dyspnea Category: Medical (2) Coronary atherosclerosis: Code(s): I25.10 - Atherosclerotic heart disease of ruby coronary artery without angina pectoris Category: Medical (3) Liver lesion: Code(s): K76.9 - Liver disease, unspecified Category: Medical Plan Pleasant 75-year-old gentleman who is here for follow-up. He was seen previously for dyspnea on exertion and underwent coronary CTA. His symptoms were random and he would get dyspnea at times and other times he would not get any symptoms. Coronary CTA showed normal LAD and RCA but calcified circumflex artery was noted. CTA FFR was done which was abnormal distally in an OM 3 branch. Overall it was thought that he has diffuse disease and does not have any significant coronary lesion. I think his clinical story is also consistent with that because his symptoms are quite random. Blood pressure is well controlled. I have advised him to change simvastatin to rosuvastatin 20 mg daily. He will continue baby aspirin. We will arrange an ultrasound of the liver to assess the small 15 mm lesion which as per the radiologist is potentially a hemangioma. Thank you for allowing me to participate in the care of your patient. Please feel free to contact me if you have any questions. Orders: Orders US abdomen limited Today K76.9 - Liver disease, unspecified Medications: New aspirin (Adult Aspirin Regimen) 81 mg PO DAILY 1 tab 0RF Coding Level of Care Code Est Pt Level 4 (35090) Diagnoses Dyspnea on exertion R06.09 Coronary atherosclerosis I25.10 Liver lesion K76.9
[2025-06-27 14:40] VITALS: BP 130/70; PULSE 80; BMI 25.8
--- OUTSIDE RECORDS SUMMARY | 2025-06-27 20:37 | XMS_ITS | Encounter Summary ---
Author Organization [facility] Address [address] [facility] [address] [place] [address] Phone Care Team Providers Care Construction Driller Name Role Phone Comfort Schmitz GENERAL PRACTITIONER Unavailable Unavailable Oneil Agrawal MD Unavailable Chandrika Villegas GENERAL PRACTITIONER Unavailable Migel Silver MD Unavailable Ankita Calle MD Unavailable [phone] Maxine Murguia GENERAL PRACTITIONER Unavailable [phone] Oneil Agrawal MD Unavailable Oneil Agrawal MD Primary Care Provider [phone] Chey Hayes DPM, Erik Unavailable Ankita Calle MD Unavailable [phone] Virgilio Bedoya MD Unavailable Papo Hui MD Unavailable Unavailabl e Encounter Details Date Type Department Care Team (Latest Contact Info) Description 08/16/2017 Transcribe Orders [facility] [address] [place], [place] [id number] Ankita Calle MD 22 [facility], 1st [place] [address] Type 1 DM with mononeuropathy (Primary Dx) Social History Tobacco Use Types Packs/Day Years Used Date Smoking Tobacco: Never Smokeless Tobacco: Never Alcohol Use Standard Drinks/Week Comments Not Asked 0 (1 standard drink = 0.6 oz pur e alcohol) Sex and Gender Information Value Date Recorded Sex Assigned at Male 05/10/2021 8:53 AM EDT Legal Sex Male 4:48 PM EST Gender Identity Not on file Sexual Orientation Straight 05/10/2021 8: 53 AM EDT documented as of this encounter Plan of Treatment Upcoming Encounters Date Type Department Care Team (Late st Contact Info) Description 08/14/2025 9:20 AM EST Office Visit [facility] [address] [place] [address] [place] [address] Lorene Magallanes, ELECTROENCEPHALOGRAPHIC TECHNOLOGIST [address] [place] [address] 11/12/2025 11:20 AM EDT Office Visit [facility] [address] [place] [address] Lorene Magallanes, ELECTROENCEPHALOGRAPHIC TECHNOLOGIST [address] [place] [address] 01/03/2026 8:20 AM EDT Office Visit [facility] Internal Medicine [address] [place] [address] Cisco Mccarthy PA-C [address] [place] [address] documented as of this encounter Visit Diagnoses Diagnosis Type 1 DM with mononeuropathy- Primary documented in this encounter Additional Health Concerns Infection Onset Date Last Indicated Resolved Time CoV-Exposed Comment:Recent close contact 07/26/2020 07/26/2020 08/09/2020 1:23 AM EST Assessment Noted Time PHQ-2 Depression Total Score: 0 08/05/20 17 11:55 AM EST documented as of this encounter Care Teams Construction Driller Relationship Specialty Start Date End Date Oneil Agrawal MD [address] [place] [address] PCP - General Internal Medicine 07/27/17 Comfort Schmitz GENERAL PRACTITIONER [address] [place] [address] Historical LMR Provider 06/21/17 Oneil Agrawal MD 40 [place] [address] Historical LMR Provider 06/21/17 07/03/18 Chandrika Villegas, JOHANA [address] [place] [address] Historical LMR Provider 06/21/1706/07 Migel Silver MD [address] [place] [address] [email or web address] Historical LMR Provider 06/21/17 07/03/18 Ankita Calle MD [address] [place] [address], 1[address] [place] [address] Historical LMR Provider 06/21/17 12/03/19 Maxine Murguia NP [address] [place] [address] 6 [place] [address] Historical LMR Provider 06/21/17 12/03/19 Oneil Agrawal MD [address] [place] [address] [email or web address] Insurance Assigned Provider 12/11/23 Darien Guerrier DPM [address] [place] [address] Podiatry 12/04/19 Ankita Calle MD 22 [facility], 1st [place] [address] [email or web address] Internal Medicine 02/19/20 Virgilio Bedoya MD [address] [place] [address] Ophthalmology 05/16/20 Papo Hui MD Internal Medicine 05/16/20 documented as of this encounter Additional Source Comments The information contained in this document represents components of the legal health record. It is not the complete legal health record.[facility]
--- OUTSIDE RECORDS SUMMARY | 2025-06-27 20:37 | XMS_ITS | Encounter Summary ---
Author Organization [facility] Address [address] [address] Phone Care Team Providers Care Parts Order And Stock Clerk Name Role Phone Oneil Agrawal MD Unavailable [phone] Oneil Agrawal MD Primary Care Provider [phone] Chey Hayes DPM, Erik Unavailable Ankita Calle MD Unavailable [phone] Virgilio Bedoya MD Unavailable [phone] Papo Hui MD Unavailable Unavailabl e Encounter Details Date Type Department Care Team (Late st Contact Info) Description 06/19/2025 Orders Only [facility] Internal Medicine [address] [place] [address] Provider, MD Marquita [address] [place] [address] Social History Tobacco Use Types Packs/Day Years [...] Description 08/14/2025 9:20 AM EST Office Visit [facility] [address] [place] [address] [place] [address] Lorene Magallanes, HARRIS [address] [place] [address] 11/12/2025 11:20 AM EDT Office Visit [facility] [address] [place] [address] [place] [address] Lorene Magallanes, HARRIS [address] [place] [address] 01/03/2026 8:20 AM EDT Office Visit [facility] Internal Medicine [address] [place] [address] Cisco Mccarthy PA-C [address] [place], [place] [phone] [email or web address] documented as of this encounter Procedures Procedure Name Priority Date/Time Associated Diagnosis Comments URINALYSIS Routine 06/15/2025 11:19 AM EDT CBC Routine 06/15/2025 11:19 AM EDT BASIC METABOLIC PANEL Routine 06/15/2025 11:19 AM EDT documented in this encounter Results * CBC (06/15/2025 11:19 AM EDT) Historical Provider LAB BLOOD ORDERABLES Brandie l Result * Urinalysis (06/15/2025 11:19 AM EDT) Urine [facility] Provider URINE ORDERABLES Final Re sult * Basic metabolic panel (06/15/2025 11:19 AM EDT) Sodium - External Chloride - External Potassium - External 4.8 CO2 - External BUN - External Creatinine - External 0.88 Glucose - External Calcium - External eGFR - External Anion Gap - External [facility] Provider LAB BLOOD ORDERABLES Edit ed Result - Final documented in this encounter Visit Diagnoses Not on filedocumented in this encounter Additional Health Concerns Assessment Noted Time PHQ-2 Depression Total Score: 0 12/19/19 25 9:06 AM EDT documented as of this encounter Care Teams Parts Order And Stock Clerk Relationship Specialty Start Date End Date Oneil Agrawal MD [address] [place] [address] [email or web address] PCP - General Internal Medicine 07/27/17 Oneil Agrawal MD [address] [place] [address] [email or web address] Insurance Assigned Provider 12/11/23 Darien Guerrier DPM [address] [place] [address] Podiatry 12/04/19 Ankita Calle MD 22 [facility], 1st [place] [address] Internal Medicine 02/19/20 Virgilio Bedoya MD [address] [place] [address] Ophthalmology 05/16/20 Papo Hui MD Internal Medicine 05/16/20 documented as of this encounter Additional Source Comments The information contained in this document represents components of the legal health record. It is not the complete legal health record.[facility]
--- OUTSIDE RECORDS SUMMARY | 2025-06-27 20:37 | XMS_ITS | Encounter Summary ---
Author Organization [facility] Address [address] [employer] [address] [address] Phone Care Team Providers Care Sld Educational Aide Name Role Phone Oneil Agrawal MD Unavailable Oneil Agrawal MD Primary Care Provider Chey Hayes DPM, Erik Unavailable [phone] Ankita Calle MD Unavailable [phone] Virgilio Bedoya MD Unavailable Papo Hui MD Unavailable Unavailabl e Encounter Details Date Type Department Care Team (Late st Contact Info) Description 06/01/2025 Orders Only [facility] Internal Medicine [address] [place] [address] Provider, MD Marquita [address] [place] [address] Social History Tobacco Use Types Packs/Day [...] Description 08/14/2025 9:20 AM EST Office Visit [facility] [address] [place] [address] [place] [address] Lorene Magallanes, HARRIS [address] [place] [phone] 11/12/2025 11:20 AM EDT Office Visit [facility] [address] [place] [address] [place] [address] Lorene Magallanes, HARRIS [address] [place] [address] 01/03/2026 8:20 AM EDT Office Visit [facility] Internal Medicine [address] [place] [address] Cisco Mccarthy PA-C [address] [place], [place] [phone] documented as of this encounter Procedures Procedure Name Priority Date/Time Associated Diagnosis Comments OUTSIDE LAB Routine 06/01/2025 1:02 PM EDT documented in this encounter Results * Outside Lab (06/01/2025 1:02 PM EDT) us Historical Provider LAB BLOOD ORDERABLES Brandie l Result documented in this encounter Visit Diagnoses Not on filedocumented in this encounter Additional Health Concerns Assessment Noted Time PHQ-2 Depression Total Score: 0 12/19/19 25 9:06 AM EDT documented as of this encounter Care Teams Sld Educational Aide Relationship Specialty Start Date End Date Oneil Agrawal MD [address] [place] [address] [email or web address] PCP - General Internal Medicine 07/27/17 Oneil Agrawal MD [address] [place] [address] Insurance Assigned Provider 12/11/23 Darien Guerrier DPM [address] [place] [address] Podiatry 12/04/19 Ankita Calle MD [address] [place] [address], [address] [place] [phone] Internal Medicine 02/19/20 Virgilio Bedoya MD [address] [place] [phone] Ophthalmology 05/16/20 Papo Hui MD Internal Medicine 05/16/20 documented as of this encounter Additional Source Comments The information contained in this document represents components of the legal health record. It is not the complete legal health record.[facility]
--- OUTSIDE RECORDS SUMMARY | 2025-06-27 20:37 | XMS_ITS | Clinical Summary ---
Author Organization [facility] [address] [facility] Address [address] [place] [address] Phone Care Team Providers Care Media Account Executive Name Role Phone Oneil Agrawal MD Primary Care Provider Allergies Active Allergy Reactions Criticality Noted Date [...] days due to scar tissue. 7 Active Surgical History Surgery Date Site/Laterality Comments COLONOSCOPY CATARACT EXTRACTION Bilateral Medical History Medical History Date Comments Diabetes mellitus ([facility] V24, [facility] V28) GERD (gastroesophageal reflux disease) Hyperlipidemia Colon [...] Safety Answer Date Record ed Physical Abuse Unrecognized value 12/04/2024 Verbal Abuse Unrecognized value 12/04/2024 Sex and Gender Information Value Date [...] 80 12/04/2024 9:09 AM EDT Temperature 36.1 C (97 F) 12/04/2024 8:14 AM EDT Respiratory Rate 17 [...] Exam 1959 Cholesterol Screening (Lipid Panel) 10/05/2023 Medicare Annual Wellness Visit 10/05/2023 Social Influencers of Health Screening 10/05/2023 Depression Screening 09/06/2024 Diabetes: Annual Urine Albumin-Creatinine Ratio (uACR) 12/15/2024 12/16/2023, 12/09/2022, 11/21/2021, Additional history exists Diabetes: Annual GFR (Glomerular Filtration Rate) 12/15/2024 12/16/2023, 06/22/2023, 12/09/2022, Additional history exists COVID-19 Vaccine ( season) 2025 05/19/2024, 11/23/2023, 05/27/2023, Additional history exists Influenza Vaccine (#1) 2025 , 05/27/2023, 06/12/2022, Additional history exists Diabetes: Blood Sugar Control Test (HGBA1C) 05/30/2025 11/27/2024, 08/28/2024 Falls Risk Assessment 12/04/2025 12/04/2024 DTaP,Tdap,and Td Vaccines (4 - Td or Tdap) 10/19/2026 10/19/2016, 12/30/2012, 09/06/2003 Pneumococcal Vaccine: 50+ Years Completed 10/15/2015, 10/09/2014, 06/14/2013, Additional history exists Zoster Vaccines Completed 02/10/2020, 02/2019, 08/06/2009 Hepatitis C Screening Completed 02/16/2020 RSV Immunization Adult Patients Completed 06/23/2024 Colorectal Cancer Screening: Colonoscopy Discontinued 12/04/2024 HIB Vaccines Aged Out No longer eligi [...] part of colon from Last 3 Months or Most Recently Relevant to Health Maintenance Results * COLONOSCOPY Anesthesia - MAC; [facility] ENDOSCOPY (12/04/2024 8:48 AM EDT) Anatomical Region Laterality Modality Other 12/04/2024 8:22 AM EDT Impressions 12/04/2024 8:49 AM EDT - The examined portion of the ileum was normal. - Melanosis in the colon. - Internal hemorrhoids. - The examination was otherwise normal. - No specimens collected. Recommendation: - Repeat colonoscopy is not recommended for surveillance. Narrative 12/04/2024 8:49 AM EDT [facility] GI Patient Name: Papo Moreira Procedure Date: 12/04/2024 8:22 AM Date of : 1950 Age: 74 Gender: Male Note Status: Finalized Attending MD: Linda Del Angel MD, Procedure Date No Time: 12/04/2024 Procedure: Colonoscopy Indications: High risk colon cancer surveillance: Personal history of non-advanced adenoma Providers: Linda Del Angel MD Referring MD: Oneil Agrawal MD Medicines: Propofol per Anesthesia Complications: No immediate complications. Estimated Blood Loss: Estimated blood loss: none. Procedure: Pre-Anesthesia Assessment: - ASA Grade Assessment: II - A patient with mild systemic disease. After I obtained informed consent, the scope was passed under direct vision. Throughout the procedure, the patient's blood pressure, pulse, and oxygen [...] the entire colon. Internal hemorrhoids were found during retroflexion. The hemorrhoids were Grade I (internal hemorrhoids that do not prolapse). The exam was otherwise without abnormality. Procedure Code(s): --- Professional --- G0105, Colorectal cancer screening; colonoscopy on individual at high risk Diagnosis Code(s): --- Professional --- Z86.010, Personal history of colonic polyps CPT copyright 2020 [employer]. All rights reserved. The codes documented in this report are preliminary and upon hcc coders review may be revised to meet current compliance requirements. Linda Del Angel MD 12/04/2024 8:49:37 AM This report has been signed electronically.Linda Del Angel MD Number of Addenda: 0 Note Initiated On: 12/04/2024 8:22 AM Scope In: Scope Out: Endoscopy Department at [facility] - [address] [place] [phone] Procedure Note Linda Del Angel MD - 12/04/2024 [facility] GI Patient Name: Papo Moreira Procedure [...] history of colonic polyps CPT copyright 2020 [employer]. All rights reserved. The codes documented in this report are preliminary and upon hcc coders reviewmay be revised to meet current compliance requirements. Linda Del Angel MD 12/04/2024 8:49:37 AM This report has been signed electronically.Linda Del Angel MD Number of Addenda: 0 Note Initiated On: 12/04/2024 8:22 AM Scope In: Scope Out: Endoscopy Department at [facility] - [address] [place] [phone] IMPRESSION: - The examined portion of the ileum was normal. - Melanosis in the colon. - Internal hemorrhoids. - The examination was otherwise normal. - No specimens collected. Recommendation: - Repeat colonoscopy is not recommended for surveillance. Linda Del Angel MD GI~PROCEDURE ORDERABLES Final Result from Last 3 Months or Most Recently Relevant to Health Maintenance Insurance MEDICARE [facility] Care Teams Media Account Executive Relationship Specialty Start Date End Date Oneil Agrawal MD [address] [place] [phone] PCP - General Internal Medicine 09/22/24
--- OUTSIDE RECORDS SUMMARY | 2025-06-27 20:37 | XMS_ITS | Encounter Summary ---
Author Organization [facility] Address [address] [employer] [address] [address] Phone Care Team Providers Care Painting Machine Operator Name Role Phone Oneil Agrawal MD Unavailable Oneil Agrawal MD Primary Care Provider Chey Hayes DPM, Erik Unavailable [phone] Ankita Calle MD Unavailable [phone] Virgilio Bedoya MD Unavailable Papo Hui MD Unavailable Unavailabl e Encounter Details Date Type Department Care Team (Late st Contact Info) Description 06/26/2025 Orders Only [facility] Medical [facility] Internal Medicine [address] [place] [address] Provider, MD Marquita [address] [place] [address] Social History Tobacco Use Types Packs/Day [...] Description 08/14/2025 9:20 AM EST Office Visit [facility] [address] [place] [address] [place] [address] Lorene Magallanes, HARRIS [address] [place] [address] 11/12/2025 11:20 AM EDT Office Visit [facility] [address] [place] [address] [place] [address] Lorene Magallanes, HARRIS [address] [place] [address] 01/03/2026 8:20 AM EDT Office Visit [facility] Internal Medicine [address] [place] [address] Cisco Mccarthy PA-C [address] [place], [place] [phone] documented as of this encounter Procedures Procedure Name Priority Date/Time Associated Diagnosis Comments OUTSIDE IMAGING Routine 06/26/2025 11:30 AM EDT documented in this encounter Results * Outside Imaging Report Only (06/26/2025 11:30 AM EDT) us Historical Provider MD TROY XR CHEST Final Res ult documented in this encounter Visit Diagnoses Not on filedocumented in this encounter Additional Health Concerns Assessment Noted Time PHQ-2 Depression Total Score: 0 12/19/19 25 9:06 AM EDT documented as of this encounter Care Teams Painting Machine Operator Relationship Specialty Start Date End Date Oneil Agrawal MD [address] [place] [address] [email or web address] PCP - General Internal Medicine 07/27/17 Oneil Agrawal MD [address] [place] [address] [email or web address] Insurance Assigned Provider 12/11/23 Darien Guerrier DPM [address] [place] [address] Podiatry 12/04/19 Ankita Calle MD [address] [place] [address], [address] [place] [address] [email or web address] Internal Medicine 02/19/20 Virgilio Bedoya MD [address] [place] [phone] Ophthalmology 05/16/20 Papo Hui MD Internal Medicine 05/16/20 documented as of this encounter Additional Source Comments The information contained in this document represents components of the legal health record. It is not the complete legal health record.[facility]
--- OUTSIDE RECORDS SUMMARY | 2025-06-27 20:37 | XMS_ITS | Clinical Summary ---
Author Organization [facility] Address [address] [address] Phone Care Team Providers Care Offset Platemaker Name Role Phone Oneil Agrawal MD Unavailable Oneil Agrawal MD Primary Care Provider [phone] Chey Hayes DPM, Erik Unavailable Ankita Calle MD Unavailable [phone] Virgilio Bedoya MD Unavailable [phone] Irving Hui MD Unavailable Unavailabl e Allergies Active Allergy Reactions Criticality Noted Date Comments Adhesive Tape-Silicones Dermatitis 05/13/2021 Codeine GI Upset 08/05/2017 Other Reaction(s): Stmach cramps Medications aspirin 81 mg chewable tablet Take 81 mg by mouth daily. Active infusion set for insulin pump (MINIMED INFUSION SET-MMT 392) ISetIndications: Type 1 diabetes mellitus with diabetic neuropathy as directed change 1-2 days due to scar tissue. 45 each 12 7 Active cholecalciferol (VITAMIN D3) 1,000 unit tablet Take 1,000 Units by mouth daily. Active BD ULTRA FINE LANCETS 33 gauge MiscIndications: Type 1 diabetes mellitus with diabetic neuropathy,Insul in pump status Inject 1 each into the skin as needed. Up to 8 times per day 700 each 3 9 Active GVOKE HYPOPEN 2-PACK 1 mg/0.2 mL subcutaneous auto-injectorInd ications:Type 1 diabetes mellitus with diabetic neuropathy Inject 0.2 mL (1 mg total) under the skin as needed (in case of severe low glucose requiring assistance). E10.40 0.4 mL 3 3 Active LANTUS SOLOSTAR U-100 INSULIN 100 unit/mL (3 mL) InPn injection penIndications:T ype 1 diabetes mellitus with diabetic neuropathy INJECT 25 UNITS UNDER THE SKIN DAILY(IN CASE OF INSULIN PUMP FAILURE) DX:E10.40 15 mL 2 3 Active Medication-Free TextIndications: Medtronic CGM Guardian 4 Indications: Medtronic CGM Guardian 4 Active BENEFIBER, GUAR GUM, ORAL Take 1 teaspoonful by mouth every morning. Active ACCU-CHEK GUIDE TEST STRIPS Strp stripsIndication s:Type 1 diabetes mellitus with diabetic neuropathy Use up to 3 times per day in event of no cgm data, erroneous cgm data, or if symptoms don't match cgm data to verify and calibrate cgm. Pt has Acc[employer]hek guide meter that links directly to his 780g pump. 300 strip 3 5 Active simvastatin (ZOCOR) 20 MG tabletIndication s:Hyperlipidemia Take 1 tablet (20 mg total) by mouth daily. 90 tablet 3 5 Active omeprazole (PRILOSEC) 20 MG capsuleIndicatio ns:Gastroesophag eal reflux disease, unspecified whether esophagitis present Take 1 capsule (20 mg total) by mouth daily. 90 capsule 3 5 Active busPIRone (BUSPAR) 30 MG tabletIndication s:Anxiety Take 1 tablet (30 mg total) by mouth 2 (two) times a day. 180 tablet 3 5 Active gabapentin (NEURONTIN) 100 MG capsuleIndicatio ns:Type 1 diabetes mellitus with diabetic neuropathy TAKE 4 CAPSULES EVERY EVENING E11.40 360 capsule 3 5 Active Additional Information Patient taking differently: 100 mg Oral Every evening, E11.40, Reported on 06/22/2025 HUMALOG U-100 INSULIN 100 unit/mL injection vialIndications: Type 1 diabetes mellitus with diabetic neuropathy,Insul in pump status Inject 100 Units under the skin daily. Via insulin pump 90 mL 3 5 Active gabapentin (NEURONTIN) 300 MG capsuleIndicatio ns:Type 1 diabetes mellitus with diabetic neuropathy Take 1 capsule (300 mg total) by mouth 2 (two) times a day. E10.40 180 capsule 3 5 Active Additional Information Patient taking differently:300 mg OralEvery evening, E10.40, Reported on 06/22/2025 senna-docusate (COLACE 2-IN-1) 8.6-50 mg Take 1 tablet by mouth nightly at bedtime. 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 - The continuous glucose monitor (CGM) data indicates that 80% of the time, his glucose levels are within the target range, with only 1% of readings exceeding 250. His average glucose level is 148, with a standard deviation of 38. - The Glucose Management Indicator (GMI) for the past two weeks is 6.9, while for the preceding two weeks, it was 6.8. He reports satisfaction with the Medtronic 780G pump, particularly the auto-correction feature, despite some weight gain. - He will continue with his current insulin pump settings. He is advised to monitor his blood sugar levels closely and contact the office if any issues arise. A prescription refill for Humalog has been provided. Assessment & Plan (11/27/2024 9:59 PM EDT): Glucose control remains stable in excellent range, CGM data is very reassuring Blood pressure is in excellent control Routine eye care is up to date BPH (benign prostatic hyperplasia) 05/25/2024 Overview (05/25/2024): Fol w [facility] BPH/ hematospermia/dysuria/prostate CA/testicular pain/urinary frequency and nocturia OV04/18/24 saw Bethanie Winters PA-C he plans to do observation of PSA Dx Proatate CA 11/2013 PSA 9.6 in notes- they are tracking this Polyneuropathy associated with underlying diseas e 09/08/2018 Assessment & Plan (11/10/2021 4:11 PM EST): Not requiring therapy Follows with podiatry regularly Most recent consultation note reviewed Allergic rhinitis 11/08/2017 Anxiety 11/08/2017 History of colon polyps 11/08/2017 Hyperlipidemia 11/08/2017 Assessment & Plan (05/18/2025 8:10 PM EDT): Continues on moderate intensity statin Most recent LDL was reviewed, it remains in good control but above optimal goal Likely to benefit from change to higher intensity statin therapy Assessment & Plan (11/27/2024 10:00 PM EDT): Continues on moderate intensity statin Most recent LDL was reviewed, it is in good control but above optimal goal Assessment & Plan (08/28/2024 3:21 PM EST): Continues on moderate intensity statin Most recent LDL was reviewed, it is at goal Assessment & Plan (05/22/2024 11:04 AM EDT): Continues on moderate intensity statin Most recent LDL was reviewed, it is in good control Assessment & Plan (11/18/2023 12:49 PM EDT): Continues on moderate intensity statin Most recent LDL was reviewed, it is at goal Assessment & Plan (05/18/2023 12:01 PM EDT): Continues on moderate intensity statin Most recent LDL was reviewed, it is at goal Assessment & Plan (11/13/2022 1:40 PM EST): Continues on moderate intensity statin Most recent LDL was reviewed, it is near goal of <70 Assessment & Plan (05/15/2022 1:38 PM EDT): Continues on moderate intensity statin Most recent LDL was reviewed, it is near goal of <70 Assessment & Plan (11/10/2021 4:04 PM EST): Continues on moderate intensity statin Most recent LDL was reviewed, it is at goal <70 Assessment & Plan (05/13/2021 1:18 PM EDT): Continues on moderate intensity statin Most recent LDL was reviewed, it is <70 Assessment & Plan (11/08/2020 11:41 AM EST): Continues on moderate intensity statin Most recent LDL was 74, target is ideally <55 Assessment & Plan (05/10/2020 12:42 PM EDT): LDL is at goal Continues on modest dose of statin therapy Encouraged to continue healthy diet Assessment & Plan (11/13/2019 3:35 PM EDT): LDL is at goal Continues on modest dose of statin therapy Encouraged to continue healthy diet Assessment & Plan (05/26/2019 2:50 PM EDT): LDL continues to be at goal Continues on modest dose of statin therapy Encouraged to continue healthy diet Assessment & Plan (11/21/2018 10:29 AM EDT): LDL at goal Continues on simvastatin Assessment & Plan (05/19/2018 1:26 PM EDT): Continues on low intensity statin therapy LDL remains at goal Assessment & Plan (11/18/2017 11:08 PM EDT): On modest dose of simva Recent lipid results are in desirable range Insulin pump status 11/08/2017 Overview (11/18/2023): Pump upgraded done 07/18/18, Medtronic 630G Started iLet August 2023, used for 2 months but experience persistent nocturnal hypoglycemia, transitioned back to Medtronic with 780G in early November 2023 Assessment & Plan (05/18/2025 8:14 PM EDT): Images from the original note were not included. Advised to continue current insulin pump settings, these continue to work well Usama is comfortable adjusting his insulin pump infusion settings as needed and has been advised to continue but to reach out with any questions regarding this We reviewed ongoing issues with CGM and proposed plans for changes to Medtronic CGM technology, in particular the upcoming collaboration/integration with [employer] CGM technology Advised to continue to monitor CGM patterns and to be in contact with us if he has any questions or concerns Assessment & Plan (02/13/2025 1:51 PM EDT): Images from the original note were not included. Advised to continue current insulin pump settings, these appear to be working well Usama continues to adjust his insulin pump infusion settings as needed and to reach out with any questions regarding this Advised to continue to monitor CGM patterns and to be in contact with us if he has any questions or concerns Orders: HUMALOG U-100 INSULIN 100 unit/mL injection vial; Inject 100 Units under the skin daily. Via insulin pump Will follow up in [address] Calle and in 6 months with tx Assessment & Plan (11/27/2024 10:12 PM EDT): Images from the original note were not included. Advised to continue current insulin pump settings, these appear to be working well Usama continues to adjust his insulin pump infusion settings as needed and to reach out with any questions regarding this We reviewed ongoing issues with CGM and proposed plans for changes to Medtronic CGM technology We discussed insulin pump/sensor management during upcoming colonoscopy as noted Advised to continue to monitor CGM patterns and to be in contact with us if he has any questions or concerns Assessment & Plan (08/28/2024 4:19 PM EST): Current pump settings Time Basal Rates? Time ICR Time ISF Time Target IOB 12am 0.875u/hr 12am 7.6 12am 50 12am 100mg/dl 2 hrs 2am 0.825 5am 7.3 11am 65 SG target 120 4am 0.825 11am 6.5 2pm 55 8am 0.85 4pm 10 7pm 40 11am 0.525 8pm 8.1 4pm 0.85 6pm 0.9 8pm 0.925 11pm 0.875 total 19.025u/day Advised to continue current insulin pump settings, these appear to be working well, we reviewed some features of the Medtronic 780G and integrated sensor Usama continues to adjust his insulin pump infusion settings as needed Briefly discussed anticipated upgrades to Medtronic sensors Advised to continue to monitor CGM patterns and to be in contact with any questions or concerns Assessment & Plan (05/22/2024 11:03 AM EDT): Current pump settings Time Basal Rates? Time ICR Time ISF Time Target IOB 12am 0.875u/hr 12am 7.6 12am 50 12am 100mg/dl 2 hrs 2am 0.825 5am 7.3 11am 65 4am 0.825 11am 6.5 2pm 55 8am 0.85 4pm 10 7pm 40 11am 0.525 8pm 8.1 4pm 0.85 6pm 0.90 8pm 0.925 11pm 0.875 total 19.025u/day Advised to continue current insulin pump settings, these appear to be working well, we reviewed some features of the Medtronic 780G and integrated sensor We discussed changes in insulin dose timing prior to breakfast and possible need for I:C ratio adjustment at 5am to 7, but to try dosing insulin at breakfast 15min prior to eating first as this may be most helpful; change in I:C ratio may increase postprandial hypoglycemia risk Usama continues to adjust his insulin pump infusion settings as needed Advised to continue to monitor CGM patterns and to be in contact with us if he has any questions or concerns Assessment & Plan (11/18/2023 12:48 PM EDT): Current pump settings Time Basal Rates? Time ICR Time ISF Time Target IOB 12am 0.875u/hr 12am 7.6 12am 50 12am 100mg/dl 2 hrs 2am 0.825 5am 7.3 11am 65 SG target 120 4am 0.825 11am 6.5 2pm 55 8am 0.85 4pm 10 7pm 40 11am 0.525 8pm 8.1 4pm 0.85 6pm 0.9 8pm 0.925 11pm 0.875 total 19.025u/day Did trial the iLet pump but ultimately returned this due to nocturnal hypoglycemia that persisted despite lifestyle modifications, has been on 780G for almost 2 weeks and so far is very happy with this Advised to continue current insulin pump settings, these appear to be working well, Usama reports being happy with the 780G Discussed some insulin pump and CGM specifics Assessment & Plan (05/18/2023 12:03 PM EDT): Usama continues with very stable glucose control and healthy lifestyle, we reviewed CGM data together, there are some variabilities from day to day that have been frustrating to Usama, these are likely to smooth out with automated insulin delivery with an integrated insulin pump/CGM system Will be due for insulin pump upgrade later this year, we discussed latest Medtronic insulin pump and also other insulin pumps available We did not adjust insulin pump settings today, TIR remains very high and overall control is still excellent despite higher A1c Continues to manage hypoglycemia risk proactively, only a very small percentage of readings are <70 Encouraged to continue healthy lifestyle Responding well to modest dose of gabapentin for neuropathy symptoms, will continue 100-200mg daily Advised to call regarding any questions or concerns, will return for routine follow up with us in 3 months with our educator staff and in 6 months with me T his patient has diabetes This patient has been using a blood glucose meter and performing 4 or more blood glucose readings daily or is now using CGM This patient is insulin-treated with 3 or more daily injections OR a continuous subcutaneous insulin infusion pump This patient's insulin treatment regimen requires frequent adjustment by the patient on the basis of blood glucose meter readings or continuous glucose monitoring results This patient has had an in-person visit with the treating provider to evaluate diabetes control and determine criteria for CGM use This patient will return for follow up visits at least every 6 months to assess adherence to CGM regimen, the effect of the current diabetes treatment regimen and to have insulin and medication therapy adjusted as needed for optimal outcome Assessment & Plan (11/13/2022 1:43 PM EST): Current pump setting Time Basal Rates? Time ICR Time ISF Time Target IOB 12am 1.00u/hr 12am 7.6 12am 50 12am 120mg/dl 4 hrs 2am 0.95 5am 6.9 11am 65 6am 100 4am 0.95 11am 5.7 2pm 55 9pm 120 8am 0.925 4pm 7.0 7pm 40 11am 0.75 8pm 7.2 4pm 0.925 8pm 1.00 11pm 1.10 total 22.05u/day Advised to continue current insulin pump settings, these appear to be working well, the modest variability Usama is experiencing is likely to be helped by an integrated insulin pump/CGM AID Usama continues to adjust his insulin pump infusion settings as needed but I do believe that his fluctuations are likely related to normal and physiologic variations day to day Advised to monitor differences in overnight glucose patterns based on evening snack choice Assessment & Plan (05/15/2022 1:37 PM EDT): Current pump setting Time Basal Rates? Time ICR Time ISF Time Target IOB 12am 0.975u/hr 12am 7.6 12am 50 12am 120mg/dl 4 hrs 2am 0.975 5am 6.8 11am 65 6am 100 4am 1.20 11am 5.8 2pm 55 9pm 120 8am 0.95 4pm 7.8 7pm 40 11am 1.05 8pm 8.3 4pm 1.05 8pm 1.05 11pm 0.975 total 25.125u/day Advised to consider adjusting the 4pm and 8pm carb ratios to help optimize the meal coverage at this time of day, this should help to stabilize glucose patterns overnight when Usama finds them most challenging We revisited the rationale for discrete changes and no more frequently then every 4-5 days to assess effect Advised to be in touch with any questions regarding insulin pump infusion sets Encouraged to continue to self adjust pump settings, Usama is very comfortable with this Assessment & Plan (11/10/2021 4:04 PM EST): Current pump setting Time Basal Rates? Time ICR Time ISF Time Target IOB 12am 0.80u/hr 12am 7.6 12am 50 12am 120mg/dl 4 hrs 2am 0.775 5am 6.7 11am 65 6am 100 4am 1.25 11am 6.1 2pm 55 9pm 120 8am 0.95 4pm 7.8 7pm 40 11am 0.975 8pm 7.4 4pm 1.15 8pm 0.925 11pm 0.85 total 24.1u/day Advised to continue current insulin pump settings, these appear to be working quite well, glucose patterns are stable in excellent range Advised to be in touch with any questions regarding insulin pump infusion sets Encouraged to continue to self adjust pump settings, Usama is very comfortable with this Assessment & Plan (05/13/2021 1:22 PM EDT): Current pump setting Time Basal Rates? Time ICR Time ISF Time Target IOB 12am 0.90u/hr 12am 7.6 12am 50 12am 100mg/dl 4 hrs 2am 0.875 5am 6.8 11am 65 6am 100 6am 1.0 11am 6.4 2pm 55 9pm 120 8am 0.95 4pm 7.4 7pm 40 11am 0.90 8pm 7.7 4pm 1.10 8pm 1.00 11pm 0.95 total 23.25u/day Advised to consider adjusting the insulin to carb ratio at 8pm in order to reduce the rise in blood sugar after evening snack, a ratio of 7.5 or perhaps making it the same as the 4pm carb ratio of 7.4 Advised to be in touch with any questions regarding insulin pump infusion sets Encouraged to continue to self adjust pump settings, Usama is very comfortable with this Assessment & Plan (11/08/2020 11:50 AM EST): Current pump setting Time Basal Rates? Time ICR Time ISF Time Target IOB 12am 1.0u/hr 12am 7.6 12am 50 12am 120mg/dl 4 hrs 2am 0.95 5am 7.0 11am 65 6am 100 6am 1.0 11am 7.6 2pm 55 9pm 120 8am 0.95 4pm 7.6 7pm 40 11am 0.90 8pm 7.6 4pm 1.10 8pm 1.10 11pm 1.10 We discussed change in target glucose for improved correction bolus effect overnight in particular, if needed ISF adjustment overnight may be needed as well to optimize correction boluses in that time period Assessment & Plan (05/10/2020 12:41 PM EDT): Usama is given the following after visit information: Current insulin pump setting Time Basal Rates? Time ICR Time ISF Time Target IOB 12am 0.9u/hr 12am 8.2 12 am 50 12am 120mg/dL 4 hrs 2am 1.0 5am 7.2 11am 65 6am 100 6am 1.15 11am 9.0 2pm 55 9pm 120 9am 1.15 4pm 7.8 7pm 40 11am 0.775 4pm 1.0 8pm 0.975 Consider reducing the 9am basal rate to 1.05u/hr or 1.0u/hr to help stabilize mid to late morning blood sugars Since the drop in glucose starts to occur after 8am you may also want to think about the 9am segment starting at 8am, this one hour head start on lower basal rate may further help stablize after breakfast blood sugars If blood sugars are more stable after breakfast but now remain in higher range then think about adjusting the carb ratio at 5am to 7 from the current 7.2 For lunch time consider adjusting the carb ratio at 11am to 8.5 to have a better response to midday/early afternoon carbs Also keep an eye on a drop in blood sugars in the afternoon, if this occurs particularly after a more desirable lunch blood sugar then consider reducing the 11am basal rate to 0.725u/hr and/or 4pm basal rate to 0.9u/hr depending on when the drop begins to happen Assessment & Plan (11/13/2019 3:31 PM EDT): Current insulin pump setting Time Basal Rates? Time ICR Time ISF Time Target IOB 12am 0.875u/hr 12am 8.2 12 am 50 12am 120mg 4 hrs 2am 1.0 5am 7.2 11am 65 6am 100 6am 1.15 11am 9.5 2pm 55 9pm 120 9am 1.15 4pm 7.8 7pm 40 11am 0.775 4pm 0.975 8pm 0.925 We discussed adjusting basal rate at 6am to 1.15u/hr, this should help reduce downward drift of blood sugars later in the morning/early afternoon We discussed optimized I:C ratio for breakfast to help improve after-meal blood sugar rise, this in addition to lower basal rate may help to stabilize glucose patterns on CGM Assessment & Plan (05/26/2019 2:52 PM EDT): Current Insulin Pump settings Time Basal Rates? Time ICR Time ISF Time Target IOB 12am 0.875u/hr 12am 1:8.2 12 am 1:37 12 am 120mg 4 hrs 2a 1.0 5a 8.0 4a 38 100 6a 1.55 11a 9.5 6a 50 120 9a 1.15 4p 7.8 11a 65 11a 0.775 2p 55 4p 0.925 7p 40 8p 0.875 We did not adjust insulin pump settings today Encouraged to continue excellent blood sugar self management Assessment & Plan (11/21/2018 11:22 AM EDT): We did not make any changes to insulin pump settings today We revisited the importance of increasing activity, Usama is very comfortable adjusting temp basal rates for exercise which works well for him Assessment & Plan (05/19/2018 1:25 PM EDT): We did not make changes to insulin pump settings today Assessment & Plan (11/18/2017 11:17 PM EDT): We discussed changes to basal rates as noted above Usama changes infusion sets every 2 days for most optimal blood sugar control Has noted increased tendency for lows when wearing sites on legs particularly on more active days, we discussed this and the caution to take with respect to increased activity and particular site location Sleep related leg cramps 11/08/2017 Peripheral neuropathy 11/08/2017 Assessment & Plan (05/10/2020 12:40 PM EDT): DPN symptoms are stable Continues routine follow up with podiatry Assessment & Plan (05/19/2018 1:26 PM EDT): Stable symptoms Regularly follows up with podiatry for foot care Nocturia 11/08/2017 Carcinoma of prostate 11/08/2017 Overview (05/25/2024): [facility] who track PSA Routine medical exam 11/08/2017 Type 1 diabetes mellitus with diabetic neuropath y 08/24/2017 Assessment & Plan (05/18/2025 8:18 PM EDT): Usama continues with very stable glucose control and healthy lifestyle, we reviewed CGM data together, there is general stability day to day with continued, very consistent rise after morning meal but this is generally modest Usama is now very consistently dosing insulin prior to eating which has helped moderate prandial rise, I:C ratios appear to be effective per current CGM patterns In general continues to do well on Medtronic 780G, we did not adjust insulin pump settings today, TIR remains very high and overall control is excellent We reviewed CGM use and plans for CGM updates for Medtronic pumps Continues to manage hypoglycemia risk proactively, rare hypoglycemia and none noted in past 2 weeks Encouraged to continue healthy lifestyle Responding well to modest dose of gabapentin for neuropathy symptoms but has required increased dosing over time, will continue 300-400mg with 500mg optimization as needed, we discussed optimize prescription to allow for 600mg once daily in evening as needed, Usama has gabapentin 100mg capsules which will continue to allow him some flexibility in dosing; we had a lengthy discussion regarding nonmedication approaches to neuropathy and muscle cramping at night, including gentle massage, warm compresses, electrolyte replacement after active day, and/or Mg supplementation Advised to call regarding any questions or concerns, will return for routine follow up with us in 3 months with Lorene Magallanes and in 6 months with me This patient has diabetes This patient has been using a blood glucose meter and performing 4 or more blood glucose readings daily or is now using CGM This patient is insulin-treated with 3 or more daily injections OR a continuous subcutaneous insulin infusion pump This patient's insulin treatment regimen requires frequent adjustment by the patient on the basis of blood glucose meter readings or continuous glucose monitoring results This patient has had an in-person visit with the treating provider to evaluate diabetes control and determine criteria for CGM use This patient will return for follow up visits at least every 6 months to assess adherence to CGM regimen, the effect of the current diabetes treatment regimen and to have insulin and medication therapy adjusted as needed for optimal outcome Assessment & Plan (02/13/2025 1:51 PM EDT): - He reports tingling sensations at night, which have been managed by increasing his gabapentin dosage to 400 mg at night. - He finds this dosage effective in preventing nighttime symptoms. - He is advised to continue with the current dosage and monitor for any progression of symptoms. - If symptoms worsen, a further increase in dosage may be considered. Orders: HUMALOG U-100 INSULIN 100 unit/mL injection vial; Inject 100 Units under the skin daily. Via insulin pump Assessment & Plan (11/27/2024 10:08 PM EDT): Usama continues with very stable glucose control and healthy lifestyle, we reviewed CGM data together, there is general stability day to day with very consistent rise after morning meal but this is modest Usama is consistently dosing insulin prior to eating which will help moderate prandial rise, I:C ratios appear to be effective per current CGM patterns In general continues to do well on Medtronic 780G, we did not adjust insulin pump settings today, TIR remains very high and overall control is excellent We reviewed CGM use and plans for CGM updates for Medtronic pumps We discussed insulin pump management during upcoming colonoscopy, Usama is advised to try to continue in automated mode with temp target set 2-3 hours prior to procedure; he is advised to inquire if there will be a preferred side on which he would lie for the procedure and place his sensor prior to this accordingly, otherwise if he will have a choice as to which side he will be placed then this should not be an issue as he will avoid lying on the side on which he has CGM placed Continues to manage hypoglycemia risk proactively, rare hypoglycemia and none noted in past 2 weeks Encouraged to continue healthy lifestyle Responding well to modest dose of gabapentin for neuropathy symptoms, will continue 300-400mg daily in evening as this is working well Advised to call regarding any questions or concerns, will return for routine follow up with us in 3 months with Lorene Vasquez and in 6 months with me This patient has diabetes This patient has been using a blood glucose meter and performing 4 or more blood glucose readings daily or is now using CGM This patient is insulin-treated with 3 or more daily injections OR a continuous subcutaneous insulin infusion pump This patient's insulin treatment regimen requires frequent adjustment by the patient on the basis of blood glucose meter readings or continuous glucose monitoring results This patient has had an in-person visit with the treating provider to evaluate diabetes control and determine criteria for CGM use This patient will return for follow up visits at least every 6 months to assess adherence to CGM regimen, the effect of the current diabetes treatment regimen and to have insulin and medication therapy adjusted as needed for optimal outcome Assessment & Plan (08/28/2024 4:17 PM EST): Usama continues with very stable glucose control and healthy lifestyle, we reviewed CGM data together, doing well on automated insulin delivery with an integrated insulin pump/CGM system We did not adjust insulin pump settings today, TIR remains very high Continues to manage hypoglycemia risk proactively, no time <70 on current download Well managed on current gabapentin dose Encouraged to continue healthy lifestyle Advised to call regarding any questions or concerns, will return for routine follow up with us in [address] Calle and in 6 months with me This patient has diabetes This patient has been using a blood glucose meter and performing 4 or more blood glucose readings daily or is now using CGM This patient is insulin-treated with 3 or more daily injections OR a continuous subcutaneous insulin infusion pump This patient's insulin treatment regimen requires frequent adjustment by the patient on the basis of blood glucose meter readings or continuous glucose monitoring results This patient has had an in-person visit with the treating provider to evaluate diabetes control and determine criteria for CGM use This patient will return for follow up visits at least every 6 months to assess adherence to CGM regimen, the effect of the current diabetes treatment regimen and to have insulin and medication therapy adjusted as needed for optimal outcome Assessment & Plan (05/22/2024 10:58 AM EDT): Usama continues with very stable glucose control and healthy lifestyle, we reviewed CGM data together, there is general stability day to day with very consistent rise after morning meal We reviewed optimal premeal insulin dosing, Usama is advised to try to dose morning meal insulin 15 minutes prior to eating and assess the impact of this on prandial rise, if needed he is also advised to consider change in IC ratio at noted In general doing well on Medtronic 780G, we did not adjust insulin pump settings today, TIR remains very high and overall control is still excellent despite higher A1c We reviewed CGM use and updated Medtronic CGM just approved by FDA which is a stand alone sensor and not yet planned to be integrated with insulin pump Continues to manage hypoglycemia risk proactively, rare hypoglycemia Encouraged to continue healthy lifestyle Responding well to modest dose of gabapentin for neuropathy symptoms, will continue 300-400mg daily in evening Advised to call regarding any questions or concerns, will return for routine follow up with us in 3 months with Lorene Vasquez and in 6 months with This patient has diabetes This patient has been using a blood glucose meter and performing 4 or more blood glucose readings daily or is now using CGM This patient is insulin-treated with 3 or more daily injections OR a continuous subcutaneous insulin infusion pump This patient's insulin treatment regimen requires frequent adjustment by the patient on the basis of blood glucose meter readings or continuous glucose monitoring results This patient has had an in-person visit with the treating provider to evaluate diabetes control and determine criteria for CGM use This patient will return for follow up visits at least every 6 months to assess adherence to CGM regimen, the effect of the current diabetes treatment regimen and to have insulin and medication therapy adjusted as needed for optimal outcome Assessment & Plan (11/18/2023 12:48 PM EDT): Usama continues with very stable glucose control and healthy lifestyle, we reviewed CGM data together, doing well on automated insulin delivery with an integrated insulin pump/CGM system We did not adjust insulin pump settings today, TIR remains very high Continues to manage hypoglycemia risk proactively, no time <70 on current download Discussed autonomic neuropathy, Usama's bowel habit changes are not consistent with gastroparesis, but encouraged following up with PCP/GI for possible gastric emptying study, encouraged adequate fiber and hydration intake to aid with symptoms Encouraged to continue healthy lifestyle Advised to call regarding any questions or concerns, will return for routine follow up with us in 3 months with our educator staff and in [address] Calle This patient has diabetes This patient has been using a blood glucose meter and performing 4 or more blood glucose readings daily or is now using CGM This patient is insulin-treated with 3 or more daily injections OR a continuous subcutaneous insulin infusion pump This patient's insulin treatment regimen requires frequent adjustment by the patient on the basis of blood glucose meter readings or continuous glucose monitoring results This patient has had an in-person visit with the treating provider to evaluate diabetes control and determine criteria for CGM use This patient will return for follow up visits at least every 6 months to assess adherence to CGM regimen, the effect of the current diabetes treatment regimen and to have insulin and medication therapy adjusted as needed for optimal outcome Assessment & Plan (05/18/2023 12:08 PM EDT): Current pump settings Time Basal Rates? Time ICR Time ISF Time Target IOB 12am 0.85u/hr 12am 7.6 12am 50 12am 100mg/dl 4 hrs 2am 0.875 5am 7 11am 65 4am 0.95 11am 6 2pm 55 8am 0.95 4pm 7.3 7pm 40 11am 0.575 8pm 7.4 4pm 0.85 6pm 1.00 8pm 0.925 11pm 0.85 total 20.3u/day Advised to continue current insulin pump settings, these appear to be working well, the modest variability Usama is experiencing when more active is likely to be helped by an integrated insulin pump/CGM AID, we reviewed some features of the new Medtronic 780G Usama continues to adjust his insulin pump infusion settings as needed Advised to continue to monitor CGM patterns and to be in contact with us if he has any questions or concerns Assessment & Plan (11/13/2022 1:45 PM EST): Usama continues with very stable glucose control and healthy lifestyle, we reviewed CGM data together, there are some variabilities from day to day that have been frustrating to Usama, these are likely to smooth out with automated insulin delivery with an integrated insulin pump/CGM system We did not adjust insulin pump settings today, TIR remains very high Continues to manage hypoglycemia risk proactively, only a very small percentage of readings are <70 Encouraged to continue healthy lifestyle Advised to call regarding any questions or concerns, will return for routine follow up with us in 3 months with our educator staff and in 6 months with me T his patient has diabetes This patient has been using a blood glucose meter and performing 4 or more blood glucose readings daily or is now using CGM This patient is insulin-treated with 3 or more daily injections OR a continuous subcutaneous insulin infusion pump This patient's insulin treatment regimen requires frequent adjustment by the patient on the basis of blood glucose meter readings or continuous glucose monitoring results This patient has had an in-person visit with the treating provider to evaluate diabetes control and determine criteria for CGM use This patient will return for follow up visits at least every 6 months to assess adherence to CGM regimen, the effect of the current diabetes treatment regimen and to have insulin and medication therapy adjusted as needed for optimal outcome Assessment & Plan (05/15/2022 1:40 PM EDT): Usama continues with very stable glucose control and healthy lifestyle, we reviewed CGM data together We discussed tendency for higher readings overnight though there is some variability in this, most reassuring of all is that Usama's overnight patterns are in safe range and stable, he is reassured that the variability is not worrisome; overall Usama's TIR is >80% and he is reassured that this is excellent We discussed optimizing evening carb ratios to help reduce the after meal spikes in glucose which are persisting into the late night and Usama will try this Continues to manage hypoglycemia risk proactively, only a very small percentage of readings are <70; CGM low alert is set at 85, we discussed strategies for not overtreating low blood sugars Encouraged to be active as consistently as he can and continue to follow healthy eating patterns Advised to call regarding any questions or concerns, will return for routine follow up with us in 3 months with our educator staff and in 6 months with me T his patient has diabetes This patient has been using a blood glucose meter and performing 4 or more blood glucose readings daily or is now using CGM This patient is insulin-treated with 3 or more daily injections OR a continuous subcutaneous insulin infusion pump This patient's insulin treatment regimen requires frequent adjustment by the patient on the basis of blood glucose meter readings or continuous glucose monitoring results This patient has had an in-person visit with the treating provider to evaluate diabetes control and determine criteria for CGM use This patient will return for follow up visits at least every 6 months to assess adherence to CGM regimen, the effect of the current diabetes treatment regimen and to have insulin and medication therapy adjusted as needed for optimal outcome Assessment & Plan (11/10/2021 4:08 PM EST): Usama continues with very stable glucose control and healthy lifestyle, we reviewed CGM data together We discussed tendency for higher readings overnight though there is some variability in this, most reassuring of all is that Usama's overnight patterns are in safe range and he is reassured that the variability is not worrisome We did not make any adjustments in insulin pump settings Continues to manage hypoglycemia risk proactively, only a very small percentage of readings are <70 Encouraged to be active as consistently as he can and follow healthy eating patterns Advised to call regarding any questions or concerns, will return for routine follow up with us in 3 months with our educator staff and in 6 months with me Holman his patient has diabetes This patient has been using a blood glucose meter and performing 4 or more blood glucose readings daily or is now using CGM This patient is insulin-treated with 3 or more daily injections OR a continuous subcutaneous insulin infusion pump This patient's insulin treatment regimen requires frequent adjustment by the patient on the basis of blood glucose meter readings or continuous glucose monitoring results This patient has had an in-person visit with the treating provider to evaluate diabetes control and determine criteria for CGM use This patient will return for follow up visits at least every 6 months to assess adherence to CGM regimen, the effect of the current diabetes treatment regimen and to have insulin and medication therapy adjusted as needed for optimal outcome Assessment & Plan (05/13/2021 1:20 PM EDT): Usama continues with very stable glucose control and healthy lifestyle, we reviewed CGM data together Previous changes to I:C ratio and Usama's self adjustments have worked well to result in high percentage of reading in target range We discussed consideration for adjustment of setting to help improve evening prandial glucose control and overnight patterns which are on the higher end of desired range frequently Continues to manage hypoglycemia risk proactively, only a small percentage of readings are <70 Encouraged to continue being active We discussed considerations for most optimal infusion set and CGM wear Advised to call regarding any questions or concerns, will return for routine follow up with us in 3 months with our educator staff and in 6 months with me Holman his patient has diabetes This patient has been using a blood glucose meter and performing 4 or more blood glucose readings daily or is now using CGM This patient is insulin-treated with 3 or more daily injections OR a continuous subcutaneous insulin infusion pump This patient's insulin treatment regimen requires frequent adjustment by the patient on the basis of blood glucose meter readings or continuous glucose monitoring results This patient has had an in-person visit with the treating provider to evaluate diabetes control and determine criteria for CGM use This patient will return for follow up visits at least every 6 months to assess adherence to CGM regimen, the effect of the current diabetes treatment regimen and to have insulin and medication therapy adjusted as needed for optimal outcome Assessment & Plan (11/08/2020 11:48 AM EST): Usama continues with very stable glucose control and healthy lifestyle, we reviewed CGM data together We discussed consideration for adjustment of setting to help improve morning prandial glucose control and also to optimize overnight correction doses if needed Continues to manage hypoglycemia risk proactively, only a small percentage of readings are <70 Encouraged to continue being active, wearing infusion sets on the lower extremities has increased risk for hypoglycemia with exercise and we discussed this today Advised to call regarding any questions or concerns, will return for routine follow up with us in 3 months with our educator staff and in 6 months with me T his patient has diabetes This patient has been using a blood glucose meter and performing 4 or more blood glucose readings daily or is now using CGM This patient is insulin-treated with 3 or more daily injections OR a continuous subcutaneous insulin infusion pump This patient's insulin treatment regimen requires frequent adjustment by the patient on the basis of blood glucose meter readings or continuous glucose monitoring results This patient has had an in-person visit with the treating provider to evaluate diabetes control and determine criteria for CGM use This patient will return for follow up visits at least every 6 months to assess adherence to CGM regimen, the effect of the current diabetes treatment regimen and to have insulin and medication therapy adjusted as needed for optimal outcome Assessment & Plan (05/10/2020 12:45 PM EDT): Usama continues with very stable glucose control and healthy lifestyle, we reviewed CGM data together We discussed his recent issues with increased management and prevention of low blood sugars, Usama is given information regarding some consideration for insulin pump adjustment Continues to manage hypoglycemia risk proactively, only a small percentage of readings are <70, Usama is getting more frequent alerts <90 which he is able to prevent from falling into low range Encouraged to continue being active, wearing infusion sets on the lower extremities may increase risk for hypoglycemia and we discussed this today Advised to call regarding any questions or concerns, will return for routine follow up with us in 3 months with our educator staff Assessment & Plan (11/13/2019 3:35 PM EDT): Usama continues with very stable glucose control and healthy lifestyle, we reviewed CGM data together Manages hypoglycemia risk proactively, we discussed insulin pump adjustments to help minimize this risk Encouraged to continue being active Up to date on immunizations, including seasonal flu vaccine Continues on statin therapy 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 Agrawal at upcoming routine visit, at this time I don't see a need for antihypertensive therapy Advised to call regarding any questions or concerns, will return for routine follow up with us in 3 months Assessment & Plan (05/26/2019 2:56 PM EDT): Usama continues with very stable glucose control and healthy lifestyle Manages hypoglycemia risk proactively Encouraged to find consistent activities during colder months to continue current activity routine We reviewed Usama's recent routine blood work results Up to date on immunizations, including seasonal flu vaccine Continues on statin therapy Advised to call regarding any questions or concerns, will return for routine follow up with us in 3 months Assessment & Plan (11/21/2018 11:34 AM EDT): Continues with excellent overall control We discussed current insulin pump settings and blood sugar patterns, will continue these Encouraged to increase physical activity, we discussed strategies to build a routine with this I reviewed recent routine labs Up to date on immunizations, routine eye care and routine podiatric care Encouraged to call with any questions or concerns Assessment & Plan (05/19/2018 1:30 PM EDT): Excellent overall control of blood sugars Will call Medtronic to begin process of upgrading insulin pump to latest model approved by Medicare, he is aware that he can use a separate CGM if he wishes to and will consider this Advised to continue healthy lifestyle, we discussed strategies to use to be more consistent with activity even in poor weather Usama will call when he receives his new Medtronic pump and see Donna for pump start Assessment & Plan (11/18/2017 11:12 PM EDT): Neuropathy symptoms are stable and mild Excellent control overall, some changes were made when A1c was 6.7% last time as this was associated with higher frequency of hypoglycemia Currently A1c remains excellent at 7%, there is much lower frequency of lows FPG readings are a bit generous and there is some evidence of a stead rise in blood sugars 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, we discussed an increase in basal insulin at 3am which may help to reduce this rise and lead to optimized FPG We discussed new, upcoming technologies, Usama would like an integrated pump/CGM such as the Medtronic 670G however Medicare does not cover this, he has looked into the Tandem X2 and will discuss this further with Donna Humphrey at the next visit Encouraged to call with any questions or concerns Lump of right thigh 08/08/2017 Resolved Problems Problem Noted Date Diagnosed Date Resolved Date 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 11/08/2017 11/18/2017 Encounters Date Type Department Care Team Description 06/26/2025 Orders Only [facility] [address] [place] [address] Marquita Mcneill MD 06/22/2025 8:30 AM EDT Office Visit [facility] [address] [place] [address] Oneil Agrawal MD Pure hypercholesterolemia (Primary Dx); Need for prophylactic vaccination and inoculation against influenza; Prostate cancer; Dyspnea on exertion; Gastroesophageal reflux disease with esophagitis, unspecified whether hemorrhage 06/19/2025 Documentation [facility] [address] [place] [address] Oneil Agrawal MD 06/19/2025 Orders Only [facility] [address] [place] [address] Marquita Mcneill MD 06/19/2025 Documentation [facility] [address] [place] [address] Oneil Agrawal MD 06/01/2025 Telephone [facility] [address] [place] [address] Oneil Agrawal MD Labs 06/01/2025 Orders Only [facility] [address] [place] [address] ProviderMarquita MD 05/17/2025 11:00 AM EDT Office Visit [facility] [address] [place] [address] Ankita Calle MD 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); Type 1 diabetes mellitus with diabetic neuropathy; Insulin pump status; Pure hypercholesterolemia from Last 3 Months Immunizations Immunization Administration Dates Next Due COVID-19 (Pre-06/28) Pfizer Vaccine, mRNA, PF 10/22/2020,10/01/2020 INFLUENZA, SPLIT VIRUS, TRIV ALENT W/ PRESERVATIVE IM 06/21/2015,06/01/2012 Influenza High-Dose Quadriva lent Preservative Free IM 06/12/2022,05/13/2021,05/16/2020 Influenza High-Dose Trivalen t Preservative Free IM 05/19/2024,05/25/2019,06/14/2018,06/22,05/26/2016 Influenza Quadrivalent Adjuv anted Preservative Free IM 05/27/2023 Influenza Trivalent Adjuvant ed Preservative free IM 06/12/2025 Influenza, Unspecified Formulation 06/10/2011 Influenza, whole 07/14/2008 Pneumococcal conjugate PCV13 10/09/2014 Pneumococcal polysaccharide PPSV23 10/15/2015,,05/15/2003 Pneumococcal, Unspecified Formulation 06/14/2013 RSV Vaccine (bivalent) 06/23/2024 Td (adult) 5 Lf Tetanus Toxo id, PF, Adsorbed 09/06/2003 Tdap 10/19/2016,12/30/2012 Tetanus toxoid, unspecified formulation 12/05/2000 Zoster live 08/06/2009 Zoster recombinant 02/10/2020,08/11/2019 Family History Medical History Relation Comments Diabetes mellitus Daughter Stroke Father Cancer Mother Spinal Stenosis Mother Cancer Sibling Breast cancer Sister Relation Status Comments Daughter Father Mother Sibling Sister Alive Social History Tobacco Use Types Packs/Day Years [...] Orientation Straight 05/10/2021 8: 53 AM EDT Last Filed Vital Signs Vital Sign Reading Time Taken Comments Blood Pressure 124/52 06/22/2025 8:26 AM EDT Pulse 73 06/22/2025 8:26 AM EDT Temperature 36.9 C (98.5 F) 06/22/2025 8:26 AM EDT Respiratory Rate 12 06/20/2024 9:23 AM EDT Oxygen Saturation 99% 06/22/2025 8:26 AM EDT Inhaled Oxygen Concentration - - Weight 76.7 kg (169 lb 3.2 oz) 06/22/2025 8:26 A M EDT Height 172.3 cm (5' 7.84 ) 06/22/2025 8:26 AM ED T Body Mass Index 25.85 06/22/2025 8:26 AM EDT Plan of Treatment Upcoming Encounters Date Type Department Care Team (Late st Contact Info) Description 08/14/2025 9:20 AM EST Office Visit [facility] [address] [place] [address] Lorene Magallanes, HARR[place] [address] [facility], [address] [place] [address] 11/12/2025 11:20 AM EDT Office Visit [facility] [address] [place] [address] Lorene Magallanes, [place] 22 [facility], [address] [place] [address] [email or web address] 01/03/2026 8:20 AM EDT Office Visit [facility] [address] [place], [place] [id number] Cisco Mccarthy PA-C 40 [place], [place] [id number] [email or web address] Health Maintenance Due Date Last Done Comments COLOGUARD 1994 FIT TEST 1994 FOBT 1994 SIGMOIDOSCOPY 1994 VIRTUAL COLONOSCOPY 1994 DIABETIC EYE EXAM 09/19/2025 09/19/2024, , 09/24/2023, Additional history exists HEMOGLOBIN A1C 11/14/2025 05/17/2025, 11/05, 08/28/2024, Additional history exists COVID-19 VACCINE ( season) 2025 06/12/2025, 05/19/2024, 11/23/2023, Additional history exists DEPRESSION SCREENING 12/18/2025 12/18/2024 BLOOD PRESSURE 12/21/2025 06/22/2025 URINE MICROALBUMIN/CREATININE RATIO 06/15/2026 06/15/2025, 12/15/2024, 06/19/2024, Additional history exists Adult Td,Tdap Booster 10/19/2026 10/19/2016 , 12/30/2012, 09/06/2003 COLONOSCOPY 12/05/2027 12/04/2024, 06/07, 07/09/2017, Additional history exists COLORECTAL CANCER SCREENING 12/05/2027 PNEUMOCOCCAL VACCINES (50+ years) Completed 10/15/2015, 10/09/2014, 05/07/2005, Additional history exists ZOSTER VACCINES Completed 02/10/2020, 1202/2019, 08/06/2009 HEPATITIS C SCREENING Completed 02/16/2020, 020 RSV VACCINE Completed 06/23/2024 INFLUENZA VACCINE Completed 06/12/2025, , 05/27/2023, Additional history exists SMOKING STATUS SCREENING (Once After 26 Yrs) Completed 06/22/2025 HEPATITIS A VACCINES Aged Out No long er eligible based on patient's age to complete this topic HIB VACCINES Aged Out No longer eligi ble based on patient's age to complete this topic MENINGOCOCCAL VACCINES (ACWY) Aged Out No longer eligible based on patient's age to complete this topic MENINGOCOCCAL VACCINES (B) Aged Out N o longer eligible based on patient's age to complete this topic Medical Devices Not on file Procedures Procedure Name Priority Date/Time Associated Diagnosis Comments OUTSIDE IMAGING Routine 06/26/2025 11:30 AM EDT OUTSIDE PROCEDURE 06/21/2025 CBC Routine 06/15/2025 11:19 AM EDT URINALYSIS Routine 06/15/2025 11:19 AM EDT BASIC METABOLIC PANEL Routine 06/15/2025 11:19 AM EDT VITAMIN B12 Routine 06/15/2025 Elevated MCV FOLATE Routine 06/15/2025 Elevated MCV MICROALBUMIN/CREAT ININE RATIO, RANDOM URINE Routine 06/15/2025 Type 1 diabetes mellitus with diabetic neuropathy LIPID PANEL Routine 06/15/2025 Pure hypercholesterolemia LFTS (HEPATIC PANEL) Routine 06/15/2025 Type 1 diabetes mellitus with diabetic neuropathy OUTSIDE LAB Routine 06/01/2025 1:02 PM EDT POCT HEMOGLOBIN A1C Routine 05/17/2025 11:13 AM EDT 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 Type 1 diabetes mellitus with diabetic neuropathy Insulin pump status HM COLONOSCOPY FOR RESULT ENTRY ONLY Routine 12/04/2024 DIABETES EYE EXAM FOR RESULT ENTRY ONLY Routine 09/19/2024 HEPATITIS C ANTIBODY, QUALITATIVE Routine 02/16/2020 7:04 AM EDT Need for hepatitis C screening test from Last 3 Months or Most Recently Relevant to Health Maintenance Results * Outside Imaging Report Only (06/26/2025 11:30 AM EDT) Historical Provider IMG XR CHEST Final Res ult * Outside Procedure (06/21/2025) us Scanning Interface Provider PROCEDURE/MINOR SURG ICAL PERFORMABLES Final Result * Urinalysis (06/15/2025 11:19 AM EDT) Urine [facility] Provider URINE ORDERABLES Final Re sult * CBC (06/15/2025 11:19 AM EDT) [facility] Provider LAB BLOOD ORDERABLES Brandie l Result * Basic metabolic panel (06/15/2025 11:19 AM EDT) Sodium - External Chloride - External Potassium - External 4.8 CO2 - External BUN - External Creatinine - External 0.88 Glucose - External Calcium - External eGFR - External Anion Gap - External [facility] Provider LAB BLOOD ORDERABLES Edit ed Result - Final * LFTs (hepatic panel) (06/15/2025) Albumin - External EXTERNAL NON-INTERFACED REF LAB Bilirubin, total - External EXTERNAL NON-INTERFACED REF LAB Bilirubin, direct - External EXTERNAL NON-INTERFACED REF LAB Alkaline Phosphatase - External EXTERNAL NON-INTERFACED REF LAB AST - External EXTER NAL NON-INTERFACED REF LAB ALT - External 13 EXTER NAL NON-INTERFACED REF LAB Protein - External EXTERNAL NON-INTERFACED REF LAB Globulin - External EXTERNAL NON-INTERFACED REF LAB Blood 06/15/2025 Oneil Agrawal MD LAB BLOOD ORDERABLES Edited [facility] Performing Organization Address [facility] de Phone Number EXTERNAL NON-INTERFACED REF LAB * Microalbumin/creatinine ratio, random urine (06/15/2025) Microalbumin, urine - External EXTERNAL NON-INTERFACED REF LAB Creatinine, urine - External EXTERNAL NON-INTERFACED REF LAB Urine Microalbumin/Cr eatinine Ratio - External <4 EXTERNAL NON-INTERFACED REF LAB Urine (Urine) 06/15/2025 Oneil Agrawal MD URINE ORDERABLES Edited [facility] Performing Organization Address [facility] de Phone Number EXTERNAL NON-INTERFACED REF LAB * Folate (06/15/2025) Folate - External EXTERNAL NON-INTERFACED REF LAB Blood 06/15/2025 Result [facility] Oneil Agrawal MD LAB BLOOD ORDERABLES Edited R [facility] Performing Organization Address [facility] de Phone Number EXTERNAL NON-INTERFACED REF LAB * Vitamin B12 (06/15/2025) Vitamin B12 - External EXTERNAL NON-INTERFACED REF LAB Blood 06/15/2025 Oneil Agrawal MD LAB BLOOD ORDERABLES Edited R [facility] Performing Organization Address [facility] de Phone Number EXTERNAL NON-INTERFACED REF LAB * Lipid panel (06/15/2025) HDL - External 54 EXTER NAL NON-INTERFACE D REF LAB Cholesterol, Total - External 145 EXTERNAL NON-INTERFACE D REF LAB Triglycerides - External 73 EXTERNAL NON-INTERFACE D REF LAB LDL, calculated - External 77 EXTERNAL NON-INTERFACE D REF LAB Cardiac Risk Ratio - External EXTERNAL NON-INTERFACE D REF LAB Non-HDL Cholesterol - External EXTERNAL NON-INTERFACE D REF LAB Blood 06/15/2025 us Oneil Agrawal MD LAB BLOOD ORDERABLES Edited R esult - Final Performing Organization Address City/[facility]/ZIP Co de Phone Number EXTERNAL NON-INTERFACED REF LAB * Outside Lab (06/01/2025 1:02 PM EDT) Historical Provider LAB BLOOD ORDERABLES Brandie l Result * (ABNORMAL) POCT Hemoglobin A1c (05/17/2025 11:13 AM EDT) [facility] Hemoglobin A1c 6.7(A) 4.2 - 5.6 % [facility] Other 05/17/2025 11:1 3 AM EDT Ankita Calle MD POINT OF CARE TEST ORDERABLES F inal Result Performing Organization Address [facility] Co de Phone Number [facility] [address] [place] [address], [facility] * COLONOSCOPY FOR RESULT ENTRY ONLY (12/04/2024) [facility] Colonoscopy repeat colo is not recommended EXTERNAL NON-INTERFAC ED REF LAB Historical Provider HEALTH MAINTENANCE Final Result Performing Organization Address City/[facility]/ZIP Co de Phone Number EXTERNAL NON-INTERFACED REF LAB * DIABETES EYE EXAM FOR RESULT ENTRY ONLY (09/19/2024) [facility] EYE EXAM no diabetic retinopathy Historical Provider HEALTH MAINTENANCE Final Result * Hepatitis C antibody, qualitative (02/16/2020 7:04 AM EDT) [facility] HCV NON-REACTIV E NON-REACTI VE [facility] Blood 02/16/2020 7:04 AM EDT 02/16/2020 7:14 AM EDT us Oneil Agrawal MD LAB BLOOD ORDERABLES Final Re sult [facility] [address] [place] [address] from Last 3 Months or Most Recently Relevant to Health Maintenance Insurance MEDICARE PART A & B Member Subscriber Plan / Payer (Ef fective 2014-Present) Name:Irving Landeros Member ID:[id number] Relation to Subscriber:Self Name:Irving Landeros Subscriber ID:[id number] Payer ID:[id number] Group ID:Not on file Type:Medicare Address: [facility] [employer] [facility] [address] [place] [address] [facility] MEDEX SUPPLEMENT MEDICARE PART A & B [employer] SUPPLEMENT MEDICARE PART A & B [employer] MEDEX SUPPLEMENT MEDICARE PART A & B [employer] SUPPLEMENT MEDICARE PART A & B [employer] MED[employer] SUPPLEMENT MEDICARE PART A & B [facility] MEDEX SUPPLEMENT MEDICARE PART A & B [employer] MEDEX SUPPLEMENT MEDICARE PART A & B [employer] MEDEX SUPPLEMENT MEDICARE PART A & B [employer] MEDEX SUPPLEMENT Care Teams Offset Platemaker Relationship Specialty Start Date End Date Oneil Agrawal MD [address] [place] [address] [email or web address] PCP - General Internal Medicine 07/27/17 Oneil Agrawal MD [address] [place] [address] [email or web address] Insurance Assigned Provider 12/11/23 Darien Guerrier DPM [address] [place] [address] Podiatry 12/04/19 Ankita Calle MD [address] [facility], 1st [place] [address] [email or web address] Internal Medicine 02/19/20 Virgilio Bedyoa MD [address] [place] [address] Ophthalmology 05/16/20 Irving Hui MD Internal Medicine 05/16/20 Additional Source Comments The information contained in this document represents components of the legal health record. It is not the complete legal health record.[facility]
--- OUTSIDE RECORDS SUMMARY | 2025-06-27 20:37 | XMS_ITS | Encounter Summary ---
Author Organization [facility] Address [address] [address] Phone Care Team Providers Care Signal Manager Name Role Phone Comfort Schmitz TUBULAR SPLITTING MACHINE TENDER Unavailable Unavailable Oneil Agrawal MD Unavailable Chandrika Villegas TUBULAR SPLITTING MACHINE TENDER Unavailable Migel Silver MD Unavailable Ankita Calle MD Unavailable [phone] Maxine Murguia TUBULAR SPLITTING MACHINE TENDER Unavailable [phone] Oneil Agrawal MD Unavailable [phone] Oneil Agrawal MD Primary Care Provider [phone] Chey Hayes DPM, Erik Unavailable Ankita Calle MD Unavailable [phone] Virgilio Bedoya MD Unavailable Papo Hui MD Unavailable Unavailabl e Encounter Details Date Type Department Care Team (Latest Contact Info) Description 11/01/2017 Transcribe Orders [address] [place] [address] Oneil Agrawal MD [address] [place] [address] Type 1 diabetes mellitus with diabetic neuropathy (Primary Dx); Insulin long-term use; Idiopathic peripheral neuropathy Social History Tobacco Use Types Packs/Day Years [...] Description 08/14/2025 9:20 AM EST Office Visit [facility] [address] [place] [address] [place] [address] Lorene Magallanes, TAILINGS WORKER [address] [place] [address] 11/12/2025 11:20 AM EDT Office Visit [address] [place] [address] Lorene Magallanes, TAILINGS WORKER [address] [place] [address] 01/03/2026 8:20 AM EDT Office Visit [facility] [address] [place] [address] Cisco Mccarthy PA-C [address] [place], [place] [phone] [email or web address] documented as of this encounter Results * (ABNORMAL) Comprehensive metabolic panel (11/01/2017 7:04 AM EST) SODIUM 140 133 - 146 mmol/L [facility] POTASSIUM 4.3 3.3 - 5.1 mmol/L [facility] CHLORIDE 103 96 - 108 mmol/L [facility] CO2 28 21 - 35 mmol/L [facility] BUN 26(H) 6 - 19 mg/dL [facility] CREATININE 0.90 0.5 - 1.5 mg/dL [facility] GLUCOSE 169(H) 70 - 99 mg/dL [facility] ALBUMIN 4.0 3.9 - 4.8 g/dL [facility] TOTAL PROTEIN 6.4(L) 6.5 - 8.0 g/dL [facility] CALCIUM 9.5 8.4 - 10.3 mg/dL [facility] ALKALINE PHOSPHATASE 71 39 - 117 U/L [facility] TOTAL BILIRUBIN 0.7 0 - 1.2 mg/dL [facility] AST 15 0 - 37 U/L [facility] ALT 14 0 - 40 U/L [facility] GLOBULIN 2.4 1 - 4.8 g/dL [facility] EGFR >60 >60 mL/min/1.7 3m2 [facility] Comment:Abnormal if <60. If patient is -Salvadorean, multiply the result by 1.21. ANION GAP 13 10 - 20 mmol/L [facility] Blood 11/01/2017 7:04 AM EST 11/01/2017 7:08 AM EST us Oneil Agrawal MD LAB BLOOD ORDERABLES Final Re sult [facility] [address] [place] [address] * CBC (11/01/2017 7:04 AM EST) WBC 8.81 3.40 - 11.20 K/uL [facility] RBC 4.60 4.50 - 5.50 M/uL [facility] HGB 14.8 13.0 - 17.0 g/dL [facility] HCT 43.4 40.0 - 51.0 % [facility] PLT 234 130 - 400 K/uL [facility] MCV 94.3 79.0 - 98.0 fL [facility] MCH 32.2 27.0 - 34.8 pg [facility] MCHC 34.1 31.5 - 36.0 g/dL [facility] RDW 12.6 10.8 - 14.6 % [facility] MPV 10.1 9.4 - 12.4 fl [facility] NRBC 0.00 /100 WBCs [facility] ABSOLUTE NRBC 0.00 K/uL [facility] Blood 11/01/2017 7:04 AM EST 11/01/2017 7:08 AM EST us Oneil Agrawal MD LAB BLOOD ORDERABLES Final Re sult [address] [address] * (ABNORMAL) Lipid panel (11/01/2017 7:04 AM EST) HDL 60 mg/dL [facility] Comment: Interpretation: Risk Level Males Decreased >45 mg/dL Average 40-45 mg/dL Increased <40 mg/dL CHOLESTEROL 156 0 - 240 mg/dL [facility] TRIGLYCERIDES 81 30 - 160 mg/dL [facility] LDL 80 50 - 129 mg/dL [facility] Comment: LDL levels in terms of risk for coronary heart disease: <100 mg/dL: Optimal 100-129 mg/dL: Near or above optimal 130-159 mg/dL: Borderline high 160-189 mg/dL: High >190 mg/dL: Very High CARDIAC RISK RATIO 2.6(L) 3.4 - 5.0 C [facility] Blood 11/01/2017 7:04 AM EST 11/01/2017 7:08 AM EST us Oneil Agrawal MD LAB BLOOD ORDERABLES Final Re sult Performing Organization Address City/[facility]/ZIP Co de Phone Number [address] [address] documented in this encounter Visit Diagnoses Diagnosis Type 1 diabetes mellitus with diabetic neuropathy- Primary Insulin long-term use Encounter for long-term (current) use of insulin Idiopathic peripheral neuropathy Unspecified hereditary and idiopathic peripheral neuropathy documented in this encounter Additional Health Concerns Infection Onset Date Last Indicated Resolved Time CoV-Exposed Comment:Recent close contact 07/26/2020 07/26/2020 08/09/2020 1:23 AM EST Assessment Noted Time PHQ-2 Depression Total Score: 0 08/05/20 11:55 AM EST documented as of this encounter Care Teams Signal Manager Relationship Specialty Start Date End Date Oneil Agrawal MD [address] [place] [address] [email or web address] PCP - General Internal Medicine 07/27/17 Comfort Schmitz TUBULAR SPLITTING MACHINE TENDER [address] [place] [address] Historical LMR Provider 06/21/17 Oneil Agrawal MD [address] [place] [address] Historical LMR Provider 06/21/17 07/03/18 Chandrika Villegas NP [address] [place] [address] Historical LMR Provider 06/21/1706/07 Migel Silver MD [address] [place] [address] [address] [place] [address] [email or web address] Historical LMR Provider 06/21/17 07/03/18 Ankita Calle MD [address] [place] [address], [address] [place] [address] Historical LMR Provider 06/21/17 12/03/19 Maxine Murguia TUBULAR SPLITTING MACHINE TENDER [address] [place] [address] [address] [place] [address] Historical LMR Provider 06/21/17 12/03/19 Oneil Agrawal MD [address] [place] [address] [email or web address] Insurance Assigned Provider 12/11/23 Darien Guerrier DPM [address] [place] [address] Podiatry 12/04/19 Ankita Calel MD [address] [place] [address], [address] [place] [address] [email or web address] Internal Medicine 02/19/20 Virgilio Bedoya MD [address] [place] [address] Ophthalmology 05/16/20 Papo Hui MD Internal Medicine 05/16/20 documented as of this encounter Additional Source Comments The information contained in this document represents components of the legal health record. It is not the complete legal health record.[facility]
--- OUTSIDE RECORDS SUMMARY | 2025-06-27 20:37 | XMS_ITS | Patient Health Record ---
Author Organization [facility] [place]on [place] Address [address] [place] [address] Care Team Providers Care Grief Counsellor Name Role Phone Oneil Agrawal MD Primary Care Provider Unavaila Darien Lema Unavailable [phone] Allergies Allergen (clinical drug ingredient) Drug/Non Drug Allergy documented on EMR Reaction Allergy Type Onset Date Status Adhesive rash Allergy Active codeine Codeine Stmach cramps Drug Allergy Act dennis Results Component Value Reference Range Notes HEMOGLOBIN A1C (GLYCOHEMOGLO BIN) Reviewed date:08/18/2024 08:41:26 AM Interpretation: Performing Lab: Notes/Report: TOTAL HEMOGLOBIN (HGBA1C) 6.6 HEMOGLOBIN A1C (GLYCOHEMOGLO BIN) Reviewed date:11/24/2024 08:57:14 AM Interpretation: Performing Lab: Notes/Report: HEMOGLOBIN A1C % (HH) 6.8 HEMOGLOBIN A1C (GLYCOHEMOGLO BIN) Reviewed date:02/16/2025 01:03:01 PM Interpretation: Performing Lab: Notes/Report: HEMOGLOBIN A1C % (HH) 6.6 Reason For Referral No Information Medications Medication SIG (Take, Route, Frequency, Duration) Notes Start Date End Date Status Fluticasone Propionate HFA Not-Taking Gabapentin 400 MG 4 capsules Orally On ce a day; Duration: 30 days Active Cymbalta Not-Taking Aspirin 81 MG 1 capsule Orally Onc e a day Active Ativan Not-Taking busPIRone HCl 30 MG 1 tablet Orally Once a day Active HumaLOG Active Lipitor Active Multivitamin Not-Aram ing Simvastatin 20 MG Orally Once a day Active Ammonium Lactate 12 % 1 application Exte rnally Twice a day; Duration: 30 days Active Extra Depth Orthopedic Shoes (1 Pair) with Customized Heat Molded Multidensity Innersoles (3 Pair) as directed Dx: IDDM/Polyneuropathy (E10.42), Hammertoe Foot Deformity (M20.41,M20.42), Preulcerative Skin Lesion(s) (L85.1) 08/18/2024 Active Vitamin D 25 MCG (1000 UT) 1 tablet Orally Once a day Active Astepro Not-Taking Colace Active Immunizations Vaccine Route Administration Date Status Comme nts Influenza Unknown 05/26/2016 Administered Influenza Unknown 06/22/2017 Administered Influenza Unknown 06/15/2018 Administered Influenza Unknown 06/06/2022 Administered Influenza Unknown 06/06/2024 Administered Pneumococcal Unknown 06/14/2013 Administered COVID-19 Pfizer BioNTech Vaccine Unknown 06/21/2022 Administered 10/01/2020,10/22/202020,2021 Social History Tobacco Use: Social History Observation Description Date Details (start date - stop date) Never Smoker NA - NA Tobacco use other than smoking: Question Answer Notes Are you an other tobacco user? No Tobacco Control (Standard) Question Answer Notes Tobacco use: Nonsmoker Additional Findings: Tobacco non-user Current no nsmoker AUDIT-C (Standard) Question Answer Notes Did you have a drink containing alcohol in the p ast year? No Points 0 Interpretation Negative Problems Problem Type SNOMED Code ICD Code Onset Dates Problem Status W/U Status Risk Notes Problem Acquired hammer toe of right foot ([id number] ) Other hammer toe(s) (acquired), right foot (M20.41) Active confirmed Response to treatment, Improvemen t Problem Acquired hammer toe of left foot ([id number] ) Other hammer toe(s) (acquired), left foot (M20.42) Active confirmed Response to treatment, Improvemen t Problem Polyneuropathy due to diabetes mellitus type I (979189976) Type 1 diabetes mellitus with diabetic polyneuropathy (E10.42) Active confirmed Vital Signs Blood pressure diastolic 65 mm Hg 05/14/2025 Height 5ft 9in in 05/14/2025 Blood pressure systolic 126 mm Hg 05/14/2025 Weight 160 lbs 05/14/2025 BMI 23.63 kg/m2 05/14/2025 Procedures Procedure Date Ordered Date Performed Result Body Sit e 95470-GDIBCEB NAIL, 6 OR MORE 08/18/2024 N/A 27349-XNEJ SKIN LESIONS, 2 TO 4 08/18/2024 N/A 06127-ZUBTFZK NAIL, 6 OR MORE 11/24/2024 N/A 74969-IMYG SKIN LESIONS, 2 TO 4 11/24/2024 N/A 80395-PRFNCVH NAIL, 6 OR MORE 02/16/2025 N/A 51398-NFWJ SKIN LESIONS, 2 TO 4 02/16/2025 N/A 59397-EYXLYNR NAIL, 6 OR MORE 05/14/2025 N/A 27391-GZYV SKIN LESIONS, 2 TO 4 05/14/2025 N/A Encounters Encounter Location Date Provider Diagnosis [address] [address] 08/18/2024 Darien Chey Type 1 diabetes mellitus with diabetic polyneuropathy E10.42 ; Tinea unguium B35.1 ; Other hammer toe(s) (acquired), right foot M20.41 and Other hammer toe(s) (acquired), left foot M20.[address] [address] 11/24/2024 Darien Chey Type 1 diabetes mellitus with diabetic polyneuropathy E10.42 ; Tinea unguium B35.1 ; Other hammer toe(s) (acquired), right foot M20.41 and Other hammer toe(s) (acquired), left foot M20.[address] [address] 02/16/2025 Darien Chey Type 1 diabetes mellitus with diabetic polyneuropathy E10.42 and Tinea unguium B35.1 [facility] [address] [address] 05/14/2025 Darien Chey Type 1 diabetes mellitus with diabetic polyneuropathy E10.42 and Tinea unguium B35.1 Assessments Encounter Date Diagnosis (ICD Code) Assessment Notes Treatment Notes Treatment Clinical Notes Section Notes 08/18/2024 Tinea unguium (ICD-10 - B35.1) 08/18/2024 Type 1 diabetes mellitus with diabetic polyneuropathy (ICD-10 - E10.42) 11/24/2024 Type 1 diabetes mellitus with diabetic polyneuropathy (ICD-10 - E10.42) 11/24/2024 Tinea unguium (ICD-10 - B35.1) 02/16/2025 Type 1 diabetes mellitus with diabetic polyneuropathy (ICD-10 - E10.42) 02/16/2025 Tinea unguium (ICD-10 - B35.1) 05/14/2025 Type 1 diabetes mellitus with diabetic polyneuropathy (ICD-10 - E10.42) 05/14/2025 Tinea unguium (ICD-10 - B35.1) 11/24/2024 Other hammer toe(s) (acquired), right foot (ICD-10 - M20.41) Response to treatment,Impro vement 08/18/2024 Other hammer toe(s) (acquired), right foot [...] X ray : Foot, right 3V 01/13/2018 12688-GKJWTIG NAIL, 6 OR MORE 04/18/2018 92093-SZZOSVG NAIL, 6 OR MORE 06/22/2017 01778-JTEVHME NAIL, 6 OR MORE 09/21/2017 53578-GMQEAPT NAIL, 6 OR MORE 07/19/2018 32188-OCHJJGZ NAIL, 6 OR MORE 10/18/2018 90481-OMJJIUB NAIL, 6 OR MORE 01/17/2019 96951-NDYWDFZ NAIL, 6 OR MORE 05/26/2019 54135-IOHOLRZ NAIL, 6 OR MORE 08/25/2019 39056-INDBARV NAIL, 6 OR MORE 11/24/2019 64289-NQXYUOS NAIL, 6 OR MORE 02/16/2020 63393-BQNXZVI NAIL, 6 OR MORE 05/10/2020 82570-PZICOAL NAIL, 6 OR MORE 08/16/2020 83694-CLHXGCQ NAIL, 6 OR MORE 11/15/2020 09053-BIRASCD NAIL, 6 OR MORE 02/11/2021 32675-VJCMEWH NAIL, 6 OR MORE 05/16/2021 02268-BDQFFND NAIL, 6 OR MORE 08/15/2021 89373-QQSVTGI NAIL, 6 OR MORE 10/08/2015 82587-VKTDFMI NAIL, 6 OR MORE 12/17/2015 10870-IVPBHIL NAIL, 6 OR MORE 06/12/2014 59826-RDDALET NAIL, 6 OR MORE 12/25/2014 75869-UWKKSUP NAIL, 6 OR MORE 06/16/2016 19805-CWSUILQ NAIL, 6 OR MORE 09/15/2016 31426-RSLPLFV NAIL, 6 OR MORE 12/18/2016 69258-EEQQROJ NAIL, 6 OR MORE 03/16/2017 59877-VPQWDUP NAIL, 6 OR MORE 06/30/2011 31411-QLNIVNR NAIL, 6 OR MORE 09/29/2011 09607-XRBGWQD NAIL, 6 OR MORE 01/12/2012 70520-XWIMJQI NAIL, 6 OR MORE 04/12/2012 91838-BSPQLNN NAIL, 6 OR MORE 07/12/2012 92951-SHVKQVQ NAIL, 6 OR MORE 09/30/2012 47305-MSSOTDN NAIL, 6 OR MORE 12/13/2012 93877-BNGOEUA NAIL, 6 OR MORE 03/14/2013 43384-LKDXFIX NAIL, 6 OR MORE 05/30/2013 88516-ZWYENUM NAIL, 6 OR MORE 08/22/2013 22598-CIDSNZW NAIL, 6 OR MORE 11/28/2013 45264-BHFYLCZ NAIL, 6 OR MORE 03/06/2014 05747-SUUPKSW NAIL, 6 OR MORE 11/14/2021 04556-QLOJUTM NAIL, 6 OR MORE 02/10/2022 74016-EZFGRQK NAIL, 6 OR MORE 05/19/2022 75551-IIWVBNR NAIL, 6 OR MORE 08/18/2022 94875-STWSHVS NAIL, 6 OR MORE 11/24/2022 41468-ONGNBAH NAIL, 6 OR MORE 02/19/2023 47400-NOGTOME NAIL, 6 OR MORE 06/29/2023 75440-ILLEXZO NAIL, 6 OR MORE 10/05/2023 40559-KFRPKJU NAIL, 6 OR MORE 02/18/2024 07845-CFVROSM NAIL, 6 OR MORE 05/19/2024 55664-AMTHATF NAIL, 6 OR MORE 08/18/2024 08509-RZTSTZG NAIL, 6 OR MORE 11/24/2024 53999-DAFZLFR NAIL, 6 OR MORE 02/16/2025 82593-JFJOSCA NAIL, 6 OR MORE 05/14/2025 51165-PLUETSW NAIL, 6 OR MORE 12/24/2017 34103-Uvjrnprg Plate 10/29/2017 03313-KUTO SKIN LESIONS, 2 TO 4 12/25/19 18 71143-WMAJ SKIN LESIONS, 2 TO 4 09/21/19 18 66952-NNAT SKIN LESIONS, 2 TO 4 07/19/20 18 19414-JMSJ SKIN LESIONS, 2 TO 4 04/18/20 18 52691-VUFM SKIN LESIONS, 2 TO 4 08/25/20 19 03786-URAZ SKIN LESIONS, 2 TO 4 05/26/20 19 04108-UJHM SKIN LESIONS, 2 TO 4 01/18/20 19 76192-LNRQ SKIN LESIONS, 2 TO 4 10/18/19 19 59232-YTFR SKIN LESIONS, 2 TO 4 08/15/20 21 62682-EXWX SKIN LESIONS, 2 TO 4 05/16/20 21 79650-HAIX SKIN LESIONS, 2 TO 4 02/12/20 21 74811-EYHL SKIN LESIONS, 2 TO 4 11/16/19 21 11239-LXWA SKIN LESIONS, 2 TO 4 08/16/20 20 67909-NWUJ SKIN LESIONS, 2 TO 4 05/10/20 20 42851-LQCH SKIN LESIONS, 2 TO 4 02/16/20 20 47198-ONLD SKIN LESIONS, 2 TO 4 11/24/19 20 66399-VQDJ SKIN LESIONS, 2 TO 4 03/06/20 14 50392-UMIW SKIN LESIONS, 2 TO 4 11/29/19 14 34871-BFMJ SKIN LESIONS, 2 TO 4 08/22/20 13 01916-EKCZ SKIN LESIONS, 2 TO 4 05/30/20 13 20632-MCRK SKIN LESIONS, 2 TO 4 03/14/20 13 98484-MZQF SKIN LESIONS, 2 TO 4 12/14/19 13 14497-HWLT SKIN LESIONS, 2 TO 4 09/30/19 13 48236-CPTA SKIN LESIONS, 2 TO 4 06/22/20 17 57682-YZKP SKIN LESIONS, 2 TO 4 12/19/19 17 61800-KTMC SKIN LESIONS, 2 TO 4 03/16/20 17 35735-FDNT SKIN LESIONS, 2 TO 4 09/15/19 17 48259-ROKG SKIN LESIONS, 2 TO 4 06/16/20 16 76099-SPVZ SKIN LESIONS, 2 TO 4 12/26/19 15 04387-JVRV SKIN LESIONS, 2 TO 4 06/12/20 14 79577-ITLJ SKIN LESIONS, 2 TO 4 12/17/19 16 09587-BGOS SKIN LESIONS, 2 TO 4 10/08/19 16 04404-XRWY SKIN LESIONS, 2 TO 4 05/14/20 25 26098-EQHA SKIN LESIONS, 2 TO 4 02/17/20 25 29133-VKYB SKIN LESIONS, 2 TO 4 11/25/19 25 32156-ZLHK SKIN LESIONS, 2 TO 4 08/18/20 24 85996-SCBK SKIN LESIONS, 2 TO 4 05/19/20 24 80301-OYUA SKIN LESIONS, 2 TO 4 02/18/20 24 94559-YVPY SKIN LESIONS, 2 TO 4 10/05/19 24 00493-OHUM SKIN LESIONS, 2 TO 4 06/29/20 23 10186-ADKL SKIN LESIONS, 2 TO 4 02/20/20 23 33183-MXCT SKIN LESIONS, 2 TO 4 11/25/19 23 97271-WZGG SKIN LESIONS, 2 TO 4 08/18/20 22 33661-BLCW SKIN LESIONS, 2 TO 4 05/19/20 22 90384-TXTY SKIN LESIONS, 2 TO 4 02/11/20 22 21969-GKBG SKIN LESIONS, 2 TO 4 11/15/19 Next Appt Details Provider Name:Darien V Chey , 08/07/2025 02:30:00 PM, [address] [facility], [place], [address], Insurance Providers Payer Name Payer Address Payer Phone Subscriber Number Group Number Insured Name Patient Relationship to Insured Coverage Start Date Coverage End Date Medicare National Govt Sv[employer] [address] [place] [address] [phone] [id number] Papo Khan Self - patient is the insured [facility] [address] [place] [address] [id number] Papo Khan Self - patient is the insured Medical (General) History Medical History History ICD Code neuropathy mumps measles chicken pox cholesterol type I diabetes Surgical History Surgery Date(Month/Year) cataract surgery 1986, 1987 right hand surgery 2013
== END 2025-06-27 15:03 | disposition home or self-care (01) ==
LOC: HO.HCS 14:25
PROVIDERS: PCP Internal Medicine; Visit Provider Internal Medicine Cardiovascular Disease
DX: R06.09 Other forms of dyspnea (principal); I25.10 Atherosclerotic heart disease of native coronary artery without angina pectoris; K76.9 Liver disease, unspecified
CPT/HCPCS: 99214

== ENCOUNTER → 2025-06-27 14:25 | Outpatient (BNVA) | payer MEDICARE, SELFPAY | PROVIDERS: PCP Internal Medicine; Visit Provider Internal Medicine Cardiovascular Disease | DX: I25.10 Atherosclerotic heart disease of native coronary artery without angina pectoris (principal); R06.09 Other forms of dyspnea; K76.9 Liver disease, unspecified | CPT/HCPCS: 99212 ==

== ENCOUNTER 2025-08-21 08:56 | Outpatient (REF) | payer MEDICARE, SELFPAY ==
--- NOTE | ~2025-08-21 | US_ITS ---
EXAMINATION: US ABDOMEN LIMITED HISTORY: K76.9 - Liver disease, unspecified TECHNIQUE: Real-time grayscale ultrasound imaging of the right upper quadrant was performed and images were reviewed. COMPARISON: There are no prior studies available for comparison. FINDINGS: Liver: The liver is normal in size. The liver demonstrates heterogeneously increased echotexture, consistent with steatosis. No focal mass or intrahepatic biliary ductal dilatation is identified. There is normal hepatopedal flow in the portal vein. Gallbladder and biliary tree: The gallbladder is unremarkable, without evidence of calculi, wall thickening, or pericholecystic fluid. There is no sonographic James sign. The common bile duct is normal in caliber measuring 2 mm. Right Kidney: The right kidney measures 9.7 cm in length. The right kidney is unremarkable, without evidence of masses, hydronephrosis, or calculi. Pancreas: The pancreas is obscured by bowel gas. Abdominal aorta and inferior vena cava: The visualized portions of the abdominal aorta and inferior vena cava are normal in caliber. There is no free fluid in the right upper quadrant. US/US abdomen limited IMPRESSION: Heterogeneous hepatic steatosis. The liver lesion seen on outside imaging is not visualized. If further characterization is desired, MRI without and with contrast is suggested. Electronically signed by: Román Gaytan MD 08/21/2025 09:29 AM [facility]
--- OUTSIDE RECORDS SUMMARY | 2025-08-21 09:55 | XMS_ITS | Patient Health Record ---
Author Organization [facility] jevon [place] Address [address] [place] [address] Care Team Providers Care Casing Sewer Name Role Phone Oneil Agrawal MD Primary Care Provider Unavaila Darien Lema Unavailable [phone] Allergies Allergen (clinical drug ingredient) Drug/Non Drug Allergy documented on EMR Reaction Allergy Type Onset Date Status Adhesive rash Allergy Active codeine Codeine Stmach cramps Drug Allergy Act dennis Results Component Value Reference Range Notes HEMOGLOBIN A1C (GLYCOHEMOGLO BIN) Reviewed date:11/24/2024 08:57:14 AM Interpretation: Performing Lab: Notes/Report: HEMOGLOBIN A1C % (HH) 6.8 HEMOGLOBIN A1C (GLYCOHEMOGLO BIN) Reviewed date:02/16/2025 01:03:01 PM Interpretation: Performing Lab: Notes/Report: HEMOGLOBIN A1C % (HH) 6.6 HEMOGLOBIN A1C (GLYCOHEMOGLO BIN) Reviewed date:08/07/2025 09:00:27 AM Interpretation: Performing Lab: Notes/Report: HEMOGLOBIN A1C % (HH) 6.7 Reason For Referral No Information Medications Medication SIG (Take, Route, Frequency, Duration) Notes Start Date End Date Status Cymbalta Not-Taking busPIRone HCl 30 MG 1 tablet Orally Once a day Active Aspirin 81 MG 1 capsule Orally Onc e a day Active Ativan Not-Taking Ammonium Lactate 12 % 1 application Exte rnally Twice a day; Duration: 30 days Active HumaLOG Active Lipitor Not-Taking Extra Depth Orthopedic Shoes (1 Pair) with Customized Heat Molded Multidensity Innersoles (3 Pair) as directed Dx: IDDM/Polyneuropathy (E10.42), Hammertoe Foot Deformity (M20.41,M20.42), Preulcerative Skin Lesion(s) (L85.1) 08/18/2024 Active Rosuvastatin Calcium 20 MG 1 capsule Orally Once a day Active Multivitamin Not-Aram ing Simvastatin 20 MG Orally Once a day Not-Taking Colace Active Fluticasone Propionate HFA Not-Taking Vitamin D 25 MCG (1000 UT) 1 tablet Orally Once a day Active Astepro Not-Taking Gabapentin 400 MG 4 capsules Orally On ce a day; Duration: 30 days Active Immunizations Vaccine Route Administration Date Status Comme nts Influenza Unknown 05/26/2016 Administered Influenza Unknown 06/22/2017 Administered Influenza Unknown 06/15/2018 Administered Influenza Unknown 06/06/2022 Administered Influenza Unknown 06/06/2024 Administered Influenza Unknown 06/08/2025 Administered Pneumococcal Unknown 06/14/2013 Administered COVID-19 Pfizer [...] Problem Acquired hammer toe of right foot (1812542889947281 ) Other hammer toe(s) (acquired), right foot (M20.41) Active confirmed Response to treatment, Improvemen t Problem Acquired hammer toe of left foot (0900085296252725 ) Other hammer toe(s) (acquired), left foot (M20.42) Active confirmed Response to treatment, Improvemen t Problem Polyneuropathy due to diabetes mellitus type I (004396960) Type 1 diabetes mellitus with diabetic polyneuropathy (E10.42) Active confirmed Vital Signs Blood pressure diastolic 65 mm Hg 08/07/2025 Height 5ft 9in in 08/07/2025 Blood pressure systolic 130 mm Hg 08/07/2025 Weight 160 lbs 08/07/2025 BMI 23.63 kg/m2 08/07/2025 Procedures Procedure Date Ordered Date Performed Result Body Sit e 26765-OIIMLUJ NAIL, 6 OR MORE 11/24/2024 N/A 01781-TDFB SKIN LESIONS, 2 TO 4 11/24/2024 N/A 18992-BYFRZIS NAIL, 6 OR MORE 02/16/2025 N/A 92641-XCMR SKIN LESIONS, 2 TO 4 02/16/2025 N/A 22565-GUZKANY NAIL, 6 OR MORE 05/14/2025 N/A 87696-WVJY SKIN LESIONS, 2 TO 4 05/14/2025 N/A 98200-Kxaywcez Plate 06/29/2025 N/A 26119-OXCNJNA NAIL, 6 OR MORE 08/07/2025 N/A 95709-TLUW SKIN LESIONS, 2 TO 4 08/07/2025 N/A Encounters Encounter Location Date Provider Diagnosis [address] [address] 11/24/2024 Darienevie Guerrier Type 1 diabetes mellitus with diabetic polyneuropathy E10.42 ; Tinea unguium B35.1 ; Other hammer toe(s) (acquired), right foot M20.41 and Other hammer toe(s) (acquired), left foot M20.[address] [address] 02/16/2025 Darien Chey Type 1 diabetes mellitus with diabetic polyneuropathy E10.42 and Tinea unguium B35.1 [facility] [address] [address] 05/14/2025 Darien Chey Type 1 diabetes mellitus with diabetic polyneuropathy E10.42 and Tinea unguium B35.[address] [address] 06/29/2025 Darien Chey Ingrown nail L60.[address] [address] 08/07/2025 Darien Chey Type 1 diabetes mellitus with diabetic polyneuropathy E10.42 and Tinea unguium B35.1 [facility] [place] [address] [place] [address] 06/28/2025 Darien Guerrier Assessments Encounter Date Diagnosis (ICD Code) Assessment [...] E10.42) 05/14/2025 Tinea unguium (ICD-10 - B35.1) 06/29/2025 Ingrown nail (ICD-10 - L60.0) 08/07/2025 Type 1 diabetes mellitus with diabetic polyneuropathy (ICD-10 - E10.42) 08/07/2025 Tinea unguium (ICD-10 - B35.1) 11/24/2024 Other hammer toe(s) (acquired), right foot (ICD-10 - M20.41) Response to treatment,Impro vement 11/24/2024 Other hammer toe(s) (acquired), left foot (ICD-10 - M20.42) Response to treatment,Impro vement Plan Of Treatment Pending Test Test Name Order Date Hemoglobin A1c 12/25/2014 Hemoglobin A1c 10/08/2015 X ray : Foot, right 3V 01/13/2018 15322-PXLJHBJ NAIL, 6 OR MORE 04/18/2018 62216-ISFZJTV NAIL, 6 OR MORE 06/22/2017 86692-QCTKJVC NAIL, 6 OR MORE 09/21/2017 70448-ZCYDJIM NAIL, 6 OR MORE 07/19/2018 64245-YSDXYSV NAIL, 6 OR MORE 10/18/2018 43132-JHLZGOU NAIL, 6 OR MORE 01/17/2019 89966-HXPASJN NAIL, 6 OR MORE 05/26/2019 31576-YCDTSTX NAIL, 6 OR MORE 08/25/2019 47361-USBESYK NAIL, 6 OR MORE 11/24/2019 42042-FXICCIL NAIL, 6 OR MORE 02/16/2020 71150-HXFRWNQ NAIL, 6 OR MORE 05/10/2020 48381-VUSWNPQ NAIL, 6 OR MORE 08/16/2020 94661-OJQNYVR NAIL, 6 OR MORE 11/15/2020 37789-RYDTLHK NAIL, 6 OR MORE 02/11/2021 23612-WEDQMUA NAIL, 6 OR MORE 05/16/2021 60457-ZVQSIAB NAIL, 6 OR MORE 08/15/2021 71855-YLKTWAQ NAIL, 6 OR MORE 10/08/2015 23499-XQHWCCL NAIL, 6 OR MORE 12/17/2015 90872-NKBPXXX NAIL, 6 OR MORE 06/12/2014 69998-DXLZYKT NAIL, 6 OR MORE 12/25/2014 51536-RGUDMNS NAIL, 6 OR MORE 06/16/2016 00884-EAWRPVG NAIL, 6 OR MORE 09/15/2016 73881-QEUUSZA NAIL, 6 OR MORE 12/18/2016 51679-HVEQRRS NAIL, 6 OR MORE 03/16/2017 42093-ZUHURVQ NAIL, 6 OR MORE 06/30/2011 93668-JEYWJYS NAIL, 6 OR MORE 09/29/2011 62395-NHJLPJI NAIL, 6 OR MORE 01/12/2012 05051-BHXRLNL NAIL, 6 OR MORE 04/12/2012 27240-BUCZWCI NAIL, 6 OR MORE 07/12/2012 27415-JLUHHXW NAIL, 6 OR MORE 09/30/2012 48663-AQLVCDF NAIL, 6 OR MORE 12/13/2012 51744-RCDQZRV NAIL, 6 OR MORE 03/14/2013 95844-WSMCXGQ NAIL, 6 OR MORE 05/30/2013 45599-WNDXRNX NAIL, 6 OR MORE 08/22/2013 74097-IKLNPYG NAIL, 6 OR MORE 11/28/2013 11524-PSPGNCT NAIL, 6 OR MORE 03/06/2014 13218-COZIXYK NAIL, 6 OR MORE 11/14/2021 84709-SMIBEVX NAIL, 6 OR MORE 02/10/2022 08552-YINJYJD NAIL, 6 OR MORE 05/19/2022 96662-TBTFLFS NAIL, 6 OR MORE 08/18/2022 95415-FQQVDDL NAIL, 6 OR MORE 11/24/2022 99649-IMXBRVI NAIL, 6 OR MORE 02/19/2023 64569-TLMXAJL NAIL, 6 OR MORE 06/29/2023 16842-NZSLETE NAIL, 6 OR MORE 10/05/2023 24869-QYDPIPO NAIL, 6 OR MORE 02/18/2024 54119-GMZJRZU NAIL, 6 OR MORE 05/19/2024 89083-UCCKYIL NAIL, 6 OR MORE 08/18/2024 59423-XRLJQOX NAIL, 6 OR MORE 11/24/2024 84009-JKNMHUN NAIL, 6 OR MORE 02/16/2025 49614-ZYGIQVU NAIL, 6 OR MORE 05/14/2025 03506-MHSTCCD NAIL, 6 OR MORE 12/24/2017 99770-DQDZZOP NAIL, 6 OR MORE 08/07/2025 15716-Jstkkkvd Plate 06/29/2025 02023-Hnmuqlby Plate 10/29/2017 86884-ZZJU SKIN LESIONS, 2 TO 4 12/25/19 18 44571-HDFE SKIN LESIONS, 2 TO 4 09/21/19 18 93168-SLHU SKIN LESIONS, 2 TO 4 07/19/20 18 41104-GGMT SKIN LESIONS, 2 TO 4 04/18/20 18 17356-WKGD SKIN LESIONS, 2 TO 4 08/25/20 52851-HQSI SKIN LESIONS, 2 TO 4 05/26/20 19 85000-JEOD SKIN LESIONS, 2 TO 4 01/18/20 19 00348-XZKZ SKIN LESIONS, 2 TO 4 10/18/19 19 80168-NOQK SKIN LESIONS, 2 TO 4 08/15/20 67173-WNSS SKIN LESIONS, 2 TO 4 05/16/20 21 65564-GMUG SKIN LESIONS, 2 TO 4 02/12/20 21 23663-HAAB SKIN LESIONS, 2 TO 4 11/16/19 21 50142-KLQB SKIN LESIONS, 2 TO 4 08/16/20 66487-PICL SKIN LESIONS, 2 TO 4 05/10/20 20584-XUQY SKIN LESIONS, 2 TO 4 02/16/20 35964-YZVJ SKIN LESIONS, 2 TO 4 11/24/19 80138-OSIH SKIN LESIONS, 2 TO 4 03/06/20 14 61140-QNFC SKIN LESIONS, 2 TO 4 11/29/19 14 34009-VLNH SKIN LESIONS, 2 TO 4 08/22/20 13 94892-HWTY SKIN LESIONS, 2 TO 4 05/30/20 13 56777-PXRO SKIN LESIONS, 2 TO 4 03/14/20 13 28630-BUSS SKIN LESIONS, 2 TO 4 12/14/19 13 19676-AFHZ SKIN LESIONS, 2 TO 4 09/30/19 13 05127-QLNQ SKIN LESIONS, 2 TO 4 06/22/20 17 26849-VQDN SKIN LESIONS, 2 TO 4 12/19/19 17 95579-MWQQ SKIN LESIONS, 2 TO 4 03/16/20 17 81062-HDRV SKIN LESIONS, 2 TO 4 09/15/19 17 48378-DIDB SKIN LESIONS, 2 TO 4 06/16/20 16 89851-ENTJ SKIN LESIONS, 2 TO 4 12/26/19 15 23805-SOGV SKIN LESIONS, 2 TO 4 06/12/20 14 14017-XHWZ SKIN LESIONS, 2 TO 4 12/17/19 16 80562-RGQZ SKIN LESIONS, 2 TO 4 10/08/19 16 02592-FPNN SKIN LESIONS, 2 TO 4 08/07/20 25 27447-NRNB SKIN LESIONS, 2 TO 4 05/14/20 25 36917-VLLF SKIN LESIONS, 2 TO 4 02/17/20 25 26056-AISV SKIN LESIONS, 2 TO 4 11/25/19 25 69937-LKLA SKIN LESIONS, 2 TO 4 08/18/20 24 39899-VEGA SKIN LESIONS, 2 TO 4 05/19/20 24 02963-VQUQ SKIN LESIONS, 2 TO 4 02/18/20 24 60712-RIAS SKIN LESIONS, 2 TO 4 10/05/19 24 29286-RHIL SKIN LESIONS, 2 TO 4 06/29/20 23 85116-BORY SKIN LESIONS, 2 TO 4 02/20/20 23 75348-WMGZ SKIN LESIONS, 2 TO 4 11/25/19 23 63414-SMNH SKIN LESIONS, 2 TO 4 08/18/20 95832-QAQQ SKIN LESIONS, 2 TO 4 05/19/20 41532-RFTH SKIN LESIONS, 2 TO 4 02/11/20 22 83221-FRNE SKIN LESIONS, 2 TO 4 11/15/19 Next Appt Details Provider Name:Darien Freddy Guerrier , 11/06/2025 03:45:00 PM, [address] [place] [address], [place], [address], Insurance Providers Payer Name Payer Address Payer Phone Subscriber Number Group Number Insured Name Patient Relationship to Insured Coverage Start Date Coverage End Date Medicare National Govt Svcs Inc [address] [place] [address] [id number] Papo Khan Self - patient is the insured [employer] [address] [place] [address] [id number] Papo Khan Self - patient is the insured Medical (General) History Medical History History ICD Code neuropathy mumps measles chicken pox cholesterol type I diabetes Surgical History Surgery Date(Month/Year) cataract surgery 1986, 1987 right hand surgery 2013
--- OUTSIDE RECORDS SUMMARY | 2025-08-21 09:55 | XMS_ITS | Clinical Summary ---
Author Organization [facility] [address] [facility] Address [address] [place] [address] Phone Care Team Providers Care Engineer Specialist Name Role Phone Oneil Agrawal MD Primary Care Provider [phone] Allergies Active Allergy Reactions Criticality Noted Date [...] Encounters Date Type Department Care Team Description 07/09/2025 Lab Requisition [facility] - Main Lab [address] [facility] [email or web address] [address] Chris Givens MD Malignant neoplasm of prostate ([facility] V24, [facility] V28) from Last 3 Months Surgical History Surgery Date Site/Laterality Comments COLONOSCOPY CATARACT EXTRACTION Bilateral Medical History Medical History Date Comments Diabetes mellitus ([facility] V24, [facility] V28) GERD (gastroesophageal reflux disease) Hyperlipidemia Colon [...] Orientation Straight 08/15/2024 3: 23 PM EST Last Filed Vital Signs Vital Sign Reading [...] Procedure Name Priority Date/Time Associated Diagnosis Comments TISSUE EXAM Routine 07/04/2025 Malignant neoplasm of prostate ([facility] V24, [facility] V28) COLONOSCOPY Routine 12/04/2024 8:48 AM EDT Adenomatous polyp of colon, unspecified part of colon from Last 3 Months or Most Recently Relevant to Health Maintenance Results * Tissue Exam (07/04/2025) Final Diagnosis A. Prostate, Left [place]: - Benign prostatic tissue. B. Prostate, Left Lateral [place]: - Benign prostatic tissue. C. Prostate, Left Middle Middle: - Benign prostatic tissue. D. Prostate, Left Lateral Middle: - Benign prostatic tissue. E. Prostate, Left Middle Base: - Benign prostatic tissue. F. Prostate, Left Lateral Base: - Benign prostatic tissue. G. Prostate, Right [place]: - Benign prostatic tissue. H. Prostate, Right Lateral [place]: - Benign prostatic tissue. I. Prostate, Right Middle Middle: - Benign prostatic tissue. J. Prostate, Right Lateral Middle: - Atypical small acinar proliferation (COLETTE), suspicious for adenocarcinoma. K. Prostate, Right Middle Base: - Benign prostatic tissue. L. Prostate, Right Lateral Base: - Benign prostatic tissue. 07/12/2025 9:24 AM EST [facility] at 0924 EST Clinical Information Prostate cancer on active surveillance PSA Level: 9.1 02/28 C61 [id number] 07/12/2025 9:24 AM EST [facility] Gross Description A. Prostate, Left [place]: Received, properly labeled, are two H and E stained slides and two unstained slides. B. Prostate, Left Lateral [place]: Received, properly labeled, are two H and E stained slides and two unstained slides. C. Prostate, Left Middle Middle: Received, properly labeled, are two H and E stained slides and two unstained slides. D. Prostate, Left Lateral Middle: Received, properly labeled, are two H and E stained slides and two unstained slides. E. Prostate, Left Middle Base: Received, properly labeled, are two H and E stained slides and two unstained slides. F. Prostate, Left Lateral Base: Received, properly labeled, are two H and E stained slides and two unstained slides. G. Prostate, Right [place]: Received, properly labeled, are two H and E stained slides and two unstained slides. H. Prostate, Right Lateral [place]: Received, properly labeled, are two H and E stained slides and two unstained slides. I. Prostate, Right Middle Middle: Received, properly labeled, are two H and E stained slides and two unstained slides. J. Prostate, Right Lateral Middle: Received, properly labeled, are two H and E stained slides and two unstained slides. K. Prostate, Right Middle Base: Received, properly labeled, are two H and E stained slides and two unstained slides. L. Prostate, Right Lateral Base: Received, properly labeled, are two H and E stained slides and two unstained slides. /al 07/12/2025 9:24 AM [facility] Disclaimer Technical pathology services provided by [facility] [address] [place] [address] (CLIA #[id number]/Gisele Chaudhary MD, Activities Therapist) Unless otherwise specified, all tissue is 10% NB formalin fixed and paraffin embedded. 07/12/2025 9:24 AM [facility] Tissue Prostate / Unknown 07/04/20252024 11:05 AM EST Tissue specimen (specimen) Prostate / Unknown 07/04/2025 07/09/2025 11 :08 AM EST Tissue specimen (specimen) Prostate / Unknown 07/04/2025 07/09/2025 11 :08 AM EST Tissue specimen (specimen) Prostate / Unknown 07/04/2025 07/09/2025 11 :08 AM EST Tissue specimen (specimen) Prostate / Unknown 07/04/2025 07/09/2025 11 :08 AM EST Tissue specimen (specimen) Prostate / Unknown 07/04/2025 07/09/2025 11 :08 AM EST Tissue specimen (specimen) Prostate / Unknown 07/04/2025 07/09/2025 11 :08 AM EST Tissue specimen (specimen) Prostate / Unknown 07/04/2025 07/09/2025 11 :08 AM EST Tissue specimen (specimen) Prostate / Unknown 07/04/2025 07/09/2025 11 :08 AM EST Tissue specimen (specimen) Prostate / Unknown 07/04/2025 07/09/2025 11 :08 AM EST Tissue specimen (specimen) Prostate / Unknown 07/04/2025 07/09/2025 11 :08 AM EST Tissue specimen (specimen) Prostate / Unknown 07/04/2025 07/09/2025 11 :08 AM EST Chris Givens MD LAB PATHOLOGY ORDERABLES nal Result [facility] [address] [place] [address], * COLONOSCOPY Anesthesia - MAC; [facility] ENDOSCOPY (12/04/2024 8:48 AM EDT) Anatomical Region Laterality Modality Other 12/04/2024 8:22 AM EDT Impressions 12/04/2024 8:49 AM EDT - The examined portion of the ileum was normal. - Melanosis in the colon. - Internal hemorrhoids. - The examination was otherwise normal. - No specimens collected. Recommendation: - Repeat colonoscopy is not recommended for surveillance. Narrative 12/04/2024 8:49 AM EDT [facility] Patient Name: Papo Landeros Procedure Date: 12/04/2024 8:22 AM Date of [...] history of colonic polyps CPT copyright 2020 [employer]. All rights reserved. The codes documented in this report are preliminary and upon eye glass frame polisher review may be revised to meet current compliance requirements. Linda Del Angel MD 12/04/2024 8:49:37 AM This report has been signed electronically.Linda Del Angel MD Number of Addenda: 0 Note Initiated On: 12/04/2024 8:22 AM Scope In: Scope Out: Endoscopy Department at [facility] - [address] [place] [phone] Procedure Note Linda Del Angel MD - 12/04/2024 [facility] Patient Name: Papo Landeros Procedure Date: 12/04/2024 8:22 AM Date of [...] history of colonic polyps CPT copyright 2020 [employer]. All rights reserved. The codes documented in this report are preliminary and upon eye glass frame polisher reviewmay be revised to meet current compliance requirements. Linda Del Angel MD 12/04/2024 8:49:37 AM This report has been signed electronically.Linda Del Angel MD Number of Addenda: 0 Note Initiated On: 12/04/2024 8:22 AM Scope In: Scope Out: Endoscopy Department at [facility] - [address] [place] [phone] IMPRESSION: - The examined portion of the ileum was normal. - Melanosis in the colon. - Internal hemorrhoids. - The examination was otherwise normal. - No specimens collected. Recommendation: - Repeat colonoscopy is not recommended for surveillance. Linda Del Angel MD GI~PROCEDURE ORDERABLES Final Result from Last 3 Months or Most Recently Relevant to Health Maintenance Insurance MEDICARE [facility] Care Teams Engineer Specialist Relationship Specialty Start Date End Date Oneil Agrawal MD [address] [place] [address] PCP - General Internal Medicine 09/22/24
--- OUTSIDE RECORDS SUMMARY | 2025-08-21 09:55 | XMS_ITS | Encounter Summary ---
Author Organization [facility] Address [address] [place] [address] Care Team Providers Care Genetic Physician Name Role Phone Oneil Agrawal MD Primary Care Provider [phone] Encounter Details Date Type Department Care Team (Late st Contact Info) Description 07/09/[address] [facility] - Main Lab [address] [facility] [place] [address] Chris Givens MD [address] [facility] [address] [place] [address] Malignant neoplasm of prostate ([facility] V24, [facility] V28) Social History Tobacco Use Types Packs/Day Years [...] Orientation Straight 08/15/2024 3: 23 PM EST documented as of this encounter Plan of Treatment Not on file documented as of this encounter Procedures Procedure Name Priority Date/Time Associated Diagnosis Comments TISSUE EXAM Routine 07/04/2025 Malignant neoplasm of prostate (CMS/HCC V24, CMS/[facility] V28) documented in this encounter Results * Tissue Exam (07/04/2025) Final Diagnosis A. Prostate, Left Middle [place]: - Benign prostatic tissue. B. Prostate, Left Lateral [place]: - Benign prostatic tissue. C. Prostate, Left Middle Middle: - Benign prostatic tissue. D. Prostate, Left Lateral Middle: - Benign prostatic tissue. E. Prostate, Left Middle Base: - Benign prostatic tissue. F. Prostate, Left Lateral Base: - Benign prostatic tissue. G. Prostate, Right Middle [place]: - Benign prostatic tissue. H. Prostate, Right Lateral [place]: - Benign prostatic tissue. I. Prostate, Right Middle Middle: - Benign prostatic tissue. J. Prostate, Right Lateral Middle: - Atypical small acinar proliferation (COLETTE), suspicious for adenocarcinoma. K. Prostate, Right Middle Base: - Benign prostatic tissue. L. Prostate, Right Lateral Base: - Benign prostatic tissue. 07/12/2025 9:24 AM [facility] at [address] [facility] Clinical Information Prostate cancer on active surveillance PSA Level: 9.1 02/28 C61 [id number] 07/12/2025 9:24 AM [facility] Gross Description A. Prostate, Left Middle [place]: Received, properly labeled, are two H and E stained slides and two unstained slides. B. Prostate, Left Lateral [place]: Received, properly labeled, are two H and [...] two unstained slides. G. Prostate, Right Middle [place]: Received, properly labeled, are two H and E stained slides and two unstained slides. H. Prostate, Right Lateral [place]: Received, properly labeled, are two H and [...] two unstained slides. /al 07/12/2025 9:24 AM EST [facility] Disclaimer Technical pathology services provided by [facility] at [address], [place] [address] (CLIA #[id number]/Gisele Chaudhary MD, Global Compensation Manager) Unless otherwise specified, all tissue is 10% NB formalin fixed and paraffin embedded. 07/12/2025 9:24 AM EST [facility] Tissue Prostate / Unknown 07/04/20252024 [...] Unknown 07/04/2025 07/09/2025 11 :08 AM EST us Chris Givens MD LAB PATHOLOGY ORDERABLES Fi nal Result [facility] ([facility] [address] [place] [address], documented in this encounter Visit Diagnoses Diagnosis Malignant neoplasm of prostate (CMS/HCC V24, CMS/HCC V28) Malignant neoplasm of prostate documented in this encounter Care Teams Genetic Physician Relationship Specialty Start Date End Date Oneil Agrawal MD [address] [place] [address] PCP - General Internal Medicine 09/22/24 documented as of this encounter
== END 2025-08-21 08:57 | disposition home or self-care (01) ==
LOC: HO.HMGCX 08:56
PROVIDERS: PCP Internal Medicine; Visit Provider Internal Medicine Cardiovascular Disease
DX: K76.9 Liver disease, unspecified (principal)
CPT/HCPCS: 76705

== ENCOUNTER → 2025-08-21 08:58 | Outpatient (BNV) | payer MEDICARE, SELFPAY | PROVIDERS: PCP Internal Medicine; Visit Provider Radiology Diagnostic Radiology | DX: K76.0 Fatty (change of) liver, not elsewhere classified (principal) | CPT/HCPCS: 76705 ==